=== PATIENT | male | born 1945 | race African-American/Black ===

== ENCOUNTER 2020-09-26 19:20 | Inpatient (IN) | payer OTHER ==
[2020-09-26] MEDS ORDERED: methylPREDNISolone NA SUCC 125 MG/2 ML VIAL IVPUSH ONE (19:45)
[2020-09-26] MEDS ORDERED: ALBUTEROL SO4 2.5/IPRATROPIUM 0.5 INH SOL 3 ML VIAL.NEB. NEB ONE ×2 (19:45→19:49)
[2020-09-26] MEDS ORDERED: methylPREDNISolone NA SUCC 125 MG/2 ML VIAL ONE (19:49)
[2020-09-26 20:20] LABS: EOS % 0.3 % (0-4.5); HEMATOCRIT 37.7 % (35.4-49); HEMOGLOBIN 11.9 GM/dl (11.7-16.9); LYMPH % 13.8 % (8-40); MCH 27.2 pg (25.7-33.7); MCHC 31.7 g/dl (32.0-35.9); MEAN CELL VOLUME 85.9 fl (80-96); MEAN PLT VOLUME 8.6 fl (7.5-11.1); MONO % 13.4 % (3.8-10.2); NEUT % 71.5 % (42.8-82.8); PLATELET COUNT 339 K/MM3 (134-434); RBC 4.38 M/mm3 (4.00-5.60); RDW 15.9 % (11.9-15.9); WHITE BLOOD COUNT 4.2 K/mm3 (4.0-10.8)
[2020-09-26 20:34] LABS: ALBUMIN 2.8 g/dl (3.4-5.0); BILIRUBIN,TOTAL 0.7 mg/dl (0.2-1); CALCIUM 8.4 mg/dl (8.5-10); CREATININE 1.3 mg/dl (0.55-1.3)
[2020-09-26] MEDS ORDERED: PIPERACILLIN/TAZOB 3.375 GM 3.375 GM in DEXTROSE 5%-WATER - 50 ML IVPB ONE (20:54)
[2020-09-26] MEDS ORDERED: PIPERACILLIN/TAZOBACTAM 3.375 GM VIAL IVPB ONE (20:58)
[2020-09-26 22:03] LABS: LACTIC ACID 3.5 mmol/L (0.4-2.0)
[2020-09-26] MEDS ORDERED: POTASSIUM CHLORIDE TABS 20 MEQ TABLET.ER (FP) PO ONE ×2 (23:13→23:32)
[2020-09-27 01:42] VITALS: BMI 27.8
[2020-09-27] MEDS: FUROSEMIDE 40 MG/4 ML INJECTABLE VIAL IVPUSH SCH ×2 (06:22→14:04)
[2020-09-27 07:57] LABS: BASO % 0.3 % (0-2.0); EOS % 0.1 % (0-4.5); HEMATOCRIT 36.3 % (35.4-49); HEMOGLOBIN 11.7 GM/dl (11.7-16.9); LYMPH % 11.3 % (8-40); MCH 27.8 pg (25.7-33.7); MCHC 32.3 g/dl (32.0-35.9); MEAN CELL VOLUME 85.9 fl (80-96); MEAN PLT VOLUME 8.4 fl (7.5-11.1); MONO % 5.1 % (3.8-10.2); NEUT % 83.2 % (42.8-82.8); PLATELET COUNT 314 K/MM3 (134-434); RBC 4.22 M/mm3 (4.00-5.60); RDW 15.9 % (11.9-15.9); WHITE BLOOD COUNT 3.2 K/mm3 (4.0-10.8)
[2020-09-27 08:06] LABS: ALBUMIN 2.8 g/dl (3.4-5.0); BILIRUBIN,TOTAL 0.8 mg/dl (0.2-1); CALCIUM 8.6 mg/dl (8.5-10); CREATININE 1.1 mg/dl (0.55-1.3); TOT PROT 7.1 g/dl (6.4-8.2)
[2020-09-27] MEDS ORDERED: cefTRIAXone SODIUM 1 GM VIAL ONE (08:27)
[2020-09-27] MEDS ORDERED: DEXTROSE 5%-WATER - 50 ML IVPB ONE (08:28)
[2020-09-27 08:46] LABS: ERYTHROCYTE SEDIMENTATION RATE 34 mm/hr (0-20)
[2020-09-27] MEDS: CEFTRIAXONE 1 GM in DEXTROSE 5%-WATER - 50 ML IVPB SCH (09:35)
[2020-09-27] MEDS: AZITHROMYCIN IVPB 500 MG/250 ML BAG IVPB SCH (09:35)
[2020-09-27] MEDS ORDERED: AZITHROMYCIN IVPB 500 MG in DEXTROSE 5%-WATER - 250 ML IVPB SCH (10:00)
[2020-09-27] MEDS ORDERED: HEPARIN NA (PORCINE) 5,000 UNITS/ML 1ML VIAL SQ SCH (10:00)
[2020-09-27 11:08] LABS: LACTIC ACID 3.1 mmol/L (0.4-2.0)
[2020-09-27] MEDS: metoPROLOL SUCCINATE 25 MG TAB.SR.24H (FP) PO SCH ×2 (14:51→15:10)
[2020-09-27] MEDS: NICOTINE 21 MG/24 HOURS TOPICAL PATCH TD SCH (17:06)
[2020-09-27 20:25] LABS: URINE BARBITURATES NEGATIVE ng/ml (CUTOFF=200); URINE BENZODIAZEPINES NEGATIVE ng/ml (CUTOFF=200)
[2020-09-27 20:26] LABS: METHADONE, UR NEGATIVE ng/ml (CUTOFF=300); OPIATES, URI NEGATIVE ng/ml (CUTOFF=300); PHENCYCLIDINE,URINE NEGATIVE ng/ml (CUTOFF=25); URINE AMPHETAMINES NEGATIVE ng/ml (CUTOFF=500)
[2020-09-27 20:38] LABS: COCAINE, UR POSITIVE ng/ml (CUTOFF=300)
[2020-09-27] MEDS: APIXABAN 5 MG TABLET PO SCH (21:47)
[2020-09-28] MEDS: FUROSEMIDE 40 MG/4 ML INJECTABLE VIAL IVPUSH SCH ×2 (06:34→13:21)
[2020-09-28 08:17] LABS: EOS % 0.2 % (0-4.5); HEMATOCRIT 35.7 % (35.4-49); HEMOGLOBIN 11.2 GM/dl (11.7-16.9); LYMPH % 11.8 % (8-40); MCH 26.9 pg (25.7-33.7); MCHC 31.5 g/dl (32.0-35.9); MEAN CELL VOLUME 85.4 fl (80-96); MEAN PLT VOLUME 8.1 fl (7.5-11.1); MONO % 8.3 % (3.8-10.2); NEUT % 78.7 % (42.8-82.8); PLATELET COUNT 311 K/MM3 (134-434); RBC 4.18 M/mm3 (4.00-5.60); RDW 15.9 % (11.9-15.9); WHITE BLOOD COUNT 6.9 K/mm3 (4.0-10.8)
[2020-09-28 08:31] LABS: ALBUMIN 2.9 g/dl (3.4-5.0); BILIRUBIN,TOTAL 0.6 mg/dl (0.2-1); CALCIUM 8.6 mg/dl (8.5-10); CREATININE 1.1 mg/dl (0.55-1.3); MAGNESIUM 1.7 mg/dL (1.8-2.4); TOT PROT 7.2 g/dl (6.4-8.2)
[2020-09-28] MEDS ORDERED: DEXTROSE 5%-WATER - 50 ML IVPB ONE (10:05)
[2020-09-28] MEDS ORDERED: cefTRIAXone SODIUM 1 GM VIAL ONE (10:05)
[2020-09-28] MEDS: APIXABAN 5 MG TABLET PO SCH ×2 (10:23→21:15)
[2020-09-28] MEDS: SACUBITRIL/VALSARTAN 24 MG-26 MG TABLET PO SCH ×2 (10:23→21:15)
[2020-09-28] MEDS: CEFTRIAXONE 1 GM in DEXTROSE 5%-WATER - 50 ML IVPB SCH (10:26)
[2020-09-28] MEDS: CARVEDILOL 6.25 MG TABLET (FP) PO SCH ×2 (10:26→21:15)
[2020-09-28] MEDS: NICOTINE 21 MG/24 HOURS TOPICAL PATCH TD SCH (10:27)
[2020-09-28] MEDS: AZITHROMYCIN IVPB 500 MG/250 ML BAG IVPB SCH (11:37)
[2020-09-29] MEDS: FUROSEMIDE 40 MG/4 ML INJECTABLE VIAL IVPUSH SCH ×2 (06:20→14:25)
[2020-09-29 08:56] LABS: EOS % 0.9 % (0-4.5); HEMATOCRIT 39.1 % (35.4-49); HEMOGLOBIN 12.5 GM/dl (11.7-16.9); LYMPH % 16.7 % (8-40); MCH 27.4 pg (25.7-33.7); MEAN CELL VOLUME 85.5 fl (80-96); MEAN PLT VOLUME 8.8 fl (7.5-11.1); MONO % 10.4 % (3.8-10.2); PLATELET COUNT 316 K/MM3 (134-434); RBC 4.57 M/mm3 (4.00-5.60); RDW 15.5 % (11.9-15.9); WHITE BLOOD COUNT 5.3 K/mm3 (4.0-10.8)
[2020-09-29 09:11] LABS: CALCIUM 8.2 mg/dl (8.5-10); CREATININE 1.1 mg/dl (0.55-1.3); MAGNESIUM 1.5 mg/dL (1.8-2.4)
[2020-09-29] MEDS ORDERED: cefTRIAXone SODIUM 1 GM VIAL ONE (09:36)
[2020-09-29] MEDS ORDERED: DEXTROSE 5%-WATER - 50 ML IVPB ONE (09:36)
[2020-09-29] MEDS: NICOTINE 21 MG/24 HOURS TOPICAL PATCH TD SCH (09:58)
[2020-09-29] MEDS: SACUBITRIL/VALSARTAN 24 MG-26 MG TABLET PO SCH ×2 (09:58→21:44)
[2020-09-29] MEDS: CARVEDILOL 6.25 MG TABLET (FP) PO SCH ×2 (09:58→21:44)
[2020-09-29] MEDS: APIXABAN 5 MG TABLET PO SCH ×2 (09:58→21:44)
[2020-09-29] MEDS ORDERED: MAGNESIUM 1GM/D5W 100ML - 100 ML IVPB IVPB ONE (09:58)
[2020-09-29] MEDS: AZITHROMYCIN IVPB 500 MG/250 ML BAG IVPB SCH (09:59)
[2020-09-29] MEDS: CEFTRIAXONE 1 GM in DEXTROSE 5%-WATER - 50 ML IVPB SCH (09:59)
[2020-09-29] MEDS: ALBUTEROL SO4 HFA INHALER IH SCH (21:48)
[2020-09-30] MEDS: ALBUTEROL SO4 HFA INHALER IH SCH ×6 (05:11→21:18)
[2020-09-30] MEDS: FUROSEMIDE 40 MG/4 ML INJECTABLE VIAL IVPUSH SCH ×2 (06:12→15:16)
[2020-09-30 08:19] LABS: HEMATOCRIT 39.6 % (35.4-49); HEMOGLOBIN 12.8 GM/dl (11.7-16.9); MCH 27.2 pg (25.7-33.7); MCHC 32.3 g/dl (32.0-35.9); MEAN CELL VOLUME 84.4 fl (80-96); MEAN PLT VOLUME 8.5 fl (7.5-11.1); PLATELET COUNT 319 K/MM3 (134-434); RBC 4.69 M/mm3 (4.00-5.60); RDW 15.6 % (11.9-15.9); WHITE BLOOD COUNT 4.6 K/mm3 (4.0-10.8)
[2020-09-30 08:26] LABS: ALBUMIN 2.5 g/dl (3.4-5.0); BILIRUBIN,TOTAL 0.7 mg/dl (0.2-1); CALCIUM 8.2 mg/dl (8.5-10); MAGNESIUM 1.5 mg/dL (1.8-2.4); TOT PROT 6.4 g/dl (6.4-8.2)
[2020-09-30 08:48] LABS: ADD RBC MORPHOLOGY YES
[2020-09-30] MEDS ORDERED: MAGNESIUM SULF 50% (8.12 MEQ/2 ML-1 GM VIAL) IVPB ONE (08:48)
[2020-09-30] MEDS ORDERED: MAGNESIUM SULFATE IN WATER 2 GM/50 ML IVPB IVPB ONE (09:00)
[2020-09-30] MEDS ORDERED: cefTRIAXone SODIUM 1 GM VIAL ONE ×2 (09:31→09:33)
[2020-09-30] MEDS ORDERED: DEXTROSE 5%-WATER - 50 ML IVPB ONE ×2 (09:32→09:33)
[2020-09-30] MEDS: NICOTINE 21 MG/24 HOURS TOPICAL PATCH TD SCH (09:41)
[2020-09-30] MEDS: AZITHROMYCIN IVPB 500 MG/250 ML BAG IVPB SCH (09:41)
[2020-09-30] MEDS: SACUBITRIL/VALSARTAN 24 MG-26 MG TABLET PO SCH ×2 (09:42→21:16)
[2020-09-30] MEDS: POTASSIUM CHLORIDE TABS 20 MEQ TABLET.ER (FP) PO SCH ×2 (09:42→15:16)
[2020-09-30] MEDS: CARVEDILOL 6.25 MG TABLET (FP) PO SCH ×2 (09:42→21:16)
[2020-09-30] MEDS: APIXABAN 5 MG TABLET PO SCH ×2 (09:42→21:16)
[2020-09-30] MEDS: CEFTRIAXONE 1 GM in DEXTROSE 5%-WATER - 50 ML IVPB SCH (09:43)
[2020-09-30 10:51] LABS: ANISOCYTOSIS 1+; PLATELET ESTIMATE ADEQUATE
[2020-10-01] MEDS: ALBUTEROL SO4 HFA INHALER IH SCH ×5 (04:00→15:52)
[2020-10-01] MEDS: FUROSEMIDE 40 MG/4 ML INJECTABLE VIAL IVPUSH SCH ×2 (06:21→13:09)
[2020-10-01 08:05] LABS: HEMATOCRIT 38.5 % (35.4-49); HEMOGLOBIN 12.4 GM/dl (11.7-16.9); MCH 27.4 pg (25.7-33.7); MCHC 32.2 g/dl (32.0-35.9); MEAN CELL VOLUME 85.1 fl (80-96); MEAN PLT VOLUME 8.1 fl (7.5-11.1); PLATELET COUNT 321 K/MM3 (134-434); RBC 4.52 M/mm3 (4.00-5.60); RDW 15.5 % (11.9-15.9); WHITE BLOOD COUNT 4.1 K/mm3 (4.0-10.8)
[2020-10-01 08:11] LABS: ALBUMIN 2.5 g/dl (3.4-5.0); BILIRUBIN,TOTAL 0.8 mg/dl (0.2-1); CALCIUM 8.3 mg/dl (8.5-10); MAGNESIUM 1.9 mg/dL (1.8-2.4); TOT PROT 6.3 g/dl (6.4-8.2)
[2020-10-01 08:21] LABS: ADD RBC MORPHOLOGY YES
[2020-10-01 09:13] LABS: PLATELET ESTIMATE ADEQUATE
[2020-10-01] MEDS: APIXABAN 5 MG TABLET PO SCH (09:40)
[2020-10-01] MEDS: SACUBITRIL/VALSARTAN 24 MG-26 MG TABLET PO SCH (09:41)
[2020-10-01] MEDS: CARVEDILOL 6.25 MG TABLET (FP) PO SCH (09:41)
[2020-10-01] MEDS: NICOTINE 21 MG/24 HOURS TOPICAL PATCH TD SCH (09:41)
[2020-10-01] MEDS ORDERED: CEFUROXIME AXETIL 500 MG TABLET PO SCH (10:00)
[2020-10-01 14:34] VITALS: BP 149/87; PULSE 78; TEMP 97.6
== END 2020-10-01 16:56 | disposition home or self-care (01) | DRG 291 ==
LOC: FER 19:20 → FM/S 23:17
PROVIDERS: ADMIT Hospitalist; ATTEND Nurse Practitioner Acute Care
DX: I11.0 Hypertensive heart disease with heart failure (principal); J18.9 Pneumonia, unspecified organism; J98.11 Atelectasis; I47.2 Ventricular tachycardia; L03.119 Cellulitis of unspecified part of limb; E78.5 Hyperlipidemia, unspecified; I48.91 Unspecified atrial fibrillation; I50.23 Acute on chronic systolic (congestive) heart failure; I87.8 Other specified disorders of veins; J45.909 Unspecified asthma, uncomplicated; M19.90 Unspecified osteoarthritis, unspecified site; D72.819 Decreased white blood cell count, unspecified; F14.129 Cocaine abuse with intoxication, unspecified; I25.10 Atherosclerotic heart disease of native coronary artery without angina pectoris; I87.2 Venous insufficiency (chronic) (peripheral); F17.210 Nicotine dependence, cigarettes, uncomplicated; J44.9 Chronic obstructive pulmonary disease, unspecified; I27.20 Pulmonary hypertension, unspecified; I08.1 Rheumatic disorders of both mitral and tricuspid valves
CPT/HCPCS: 36415; 71045-TC-FY; 80048; 80053; 80061; 80307; 81003; 81015; 82550; 82553; 83036; 83605; 83735; 83880; 84443; 84484; 85025; 85651; 86140; 87040; 87086; 87899; 93005; 93306-TC; 93970-TC; 99285-25; C9803; J1644; U0003; U0005

== ENCOUNTER 2021-01-17 12:30 | Emergency (ER) | payer OTHER ==
[2021-01-17 13:00] VITALS: TEMP 97.4; BMI 27.3
[2021-01-17 13:54] LABS: HEMATOCRIT 35.2 % (35.4-49); HEMOGLOBIN 11.3 GM/dl (11.7-16.9); MCH 27.9 pg (25.7-33.7); MCHC 32.1 g/dl (32.0-35.9); MEAN CELL VOLUME 87.1 fl (80-96); MEAN PLT VOLUME 8.5 fl (7.5-11.1); PLATELET COUNT 178 10^3/uL (134-434); RBC 4.05 M/mm3 (4.00-5.60); WHITE BLOOD COUNT 3.2 K/mm3 (4.0-10.8)
[2021-01-17 13:59] LABS: ACTIVATED PTT 32.3 SECONDS (25.2-36.5)
[2021-01-17 14:04] LABS: INR 1.74 (0.82-1.09); PROTHROMBIN TIME (PATIENT) 18.8 SEC (10.2-13.0)
[2021-01-17 14:05] LABS: ALBUMIN 3.7 g/dl (3.4-5.0); ALK PHOS 115 U/L (45-117); ANION GAP 9 MMOL/L (8-16); BILIRUBIN,TOTAL 1.6 mg/dl (0.2-1); CHLORIDE 104 mmol/L (98-107); CO2 24 mmol/L (21-32); CREATININE 0.7 mg/dl (0.55-1.3); GLUCOSE,RANDOM 95 mg/dl (74-106); MAGNESIUM 1.5 mg/dL (1.8-2.4); SGOT/AST 27 U/L (15-37); SGPT/ALT 15 U/L (13-61); SODIUM 137 mmol/L (136-145); TOT PROT 8.6 g/dl (6.4-8.2)
[2021-01-17] MEDS ORDERED: FUROSEMIDE 40 MG/4 ML INJECTABLE VIAL IVPUSH ONE (14:08)
[2021-01-17] MEDS ORDERED: IPRATROPIUM BR 0.02% 0.5 MG/2.5 ML VIAL.NEB. NEB ONE ×2 (14:08→14:40)
[2021-01-17 14:14] LABS: ANISOCYTOSIS FEW
[2021-01-17] MEDS ORDERED: FUROSEMIDE 40 MG/4 ML INJECTABLE VIAL ONE (14:40)
[2021-01-17] MEDS ORDERED: dilTIAZem HCL 50 MG/10 ML - 10 ML VIAL IVPUSH ONE (15:49)
[2021-01-17] MEDS ORDERED: dilTIAZem HCL 125 MG/25 ML - 25 ML VIAL ONE (15:55)
[2021-01-17] MEDS ORDERED: dilTIAZem HCL 30 MG TABLET PO ONE (17:26)
[2021-01-17] MEDS ORDERED: dilTIAZem HCL 30 MG TABLET ONE (17:32)
[2021-01-17 17:34] VITALS: BP 174/125; PULSE 95
[2021-01-17 17:35] LABS: COCAINE, UR NEGATIVE (NEGATIVE); URINE BARBITURATES NEGATIVE (NEGATIVE)
[2021-01-17 17:36] LABS: METHADONE, UR NEGATIVE (NEGATIVE); OPIATES, URI NEGATIVE (NEGATIVE); PHENCYCLIDINE,URINE NEGATIVE (NEGATIVE); URINE BENZODIAZEPINES NEGATIVE (NEGATIVE)
[2021-01-17 17:41] LABS: URINE AMPHETAMINES NEGATIVE (NEGATIVE)
[2021-01-17] MEDS ORDERED: ALBUTEROL SO4 HFA INHALER IH PRN (19:27)
[2021-01-17] MEDS ORDERED: IPRATROPIUM BR 0.02% 0.5 MG/2.5 ML VIAL.NEB. NEB PRN (19:29)
== END 2021-01-17 20:11 | disposition left against medical advice (07) ==
LOC: SUPCPDRO 12:30 → FER 12:30
PROC: 3E033GC Introduction of Other Therapeutic Substance into Peripheral Vein, Percutaneous Approach (ICD-10-PCS; principal; 2021-01-17)
PROC: 3E033GC Introduction of Other Therapeutic Substance into Peripheral Vein, Percutaneous Approach (ICD-10-PCS; 2021-01-17)
PROC: 3E0F7GC Introduction of Other Therapeutic Substance into Respiratory Tract, Via Natural or Artificial Opening (ICD-10-PCS; 2021-01-17)
DX: I50.9 Heart failure, unspecified (principal); I48.91 Unspecified atrial fibrillation; I10 Essential (primary) hypertension
CPT/HCPCS: 36415; 71045-TC-FY; 73523-TC-FY; 80053; 80307; 81003; 81015; 83735; 83880; 84484; 85025; 85610; 85730; 87086; 93005; 94640; 96374; 96375; 99285-25; C9803; U0003; U0005

== ENCOUNTER 2021-03-18 11:32 | Inpatient (IN) | payer OTHER ==
[2021-03-18] MEDS ORDERED: ALBUTEROL SO4 2.5/IPRATROPIUM 0.5 INH SOL 3 ML VIAL.NEB. NEB ONE ×2 (12:23→12:51)
[2021-03-18 13:08] LABS: BASO % 2.6 % (0-2.0); EOS % 0.5 % (0-4.5); HEMATOCRIT 38.6 % (35.4-49); HEMOGLOBIN 12.3 GM/dl (11.7-16.9); LYMPH % 13.6 % (8-40); MCHC 31.9 g/dl (32.0-35.9); MEAN CELL VOLUME 87.8 fl (80-96); MEAN PLT VOLUME 8.7 fl (7.5-11.1); MONO % 10.7 % (3.8-10.2); NEUT % 72.6 % (42.8-82.8); PLATELET COUNT 244 10^3/uL (134-434); RDW 15.6 % (11.9-15.9); WHITE BLOOD COUNT 3.4 K/mm3 (4.0-10.8)
[2021-03-18 14:16] LABS: INR 2.01 (0.82-1.09); PROTHROMBIN TIME (PATIENT) 22.3 SEC (10.2-13.0)
[2021-03-18 14:21] LABS: ALBUMIN 2.8 g/dl (3.4-5.0); BILIRUBIN,TOTAL 1.6 mg/dl (0.2-1); CALCIUM 8.4 mg/dl (8.5-10); TOT PROT 7.7 g/dl (6.4-8.2)
[2021-03-18 15:14] LABS: VENOUS BASE EXCESS 2.6 mmol/L (-2-2); VENOUS O2 SATURATION 49.8 % (70-80); VENOUS PCO2 48.9 mmHg (38-52); VENOUS PH 7.384 (7.310-7.410)
[2021-03-18] MEDS ORDERED: FUROSEMIDE 40 MG/4 ML INJECTABLE VIAL IVPUSH ONE (15:35)
[2021-03-18] MEDS ORDERED: AZITHROMYCIN IVPB 500 MG in DEXTROSE 5%-WATER - 250 ML IVPB ONE (15:41)
[2021-03-18] MEDS ORDERED: CEFTRIAXONE 1 GM in DEXTROSE 5%-WATER - 50 ML IVPB ONE (15:42)
[2021-03-18] MEDS ORDERED: AZITHROMYCIN 500 MG VIAL IVPB ONE (15:44)
[2021-03-18] MEDS ORDERED: FUROSEMIDE 40 MG/4 ML INJECTABLE VIAL ONE (15:44)
[2021-03-18 15:46] LABS: EPITHELIAL CELLS FEW /hpf
[2021-03-18 15:47] LABS: URINE MUCUS FEW
[2021-03-18] MEDS ORDERED: cefTRIAXone SODIUM 1 GM VIAL ONE (16:52)
[2021-03-18] MEDS ORDERED: ACETAMINOPHEN 325 MG TABLET (FP) PO ONE (16:58)
[2021-03-18] MEDS ORDERED: ACETAMINOPHEN 325 MG TABLET (FP) PO PRN (19:49)
[2021-03-18] MEDS ORDERED: POLYETHYLENE GLYCOL (HEALTHYLAX) 3350 17 GM PACKET PO PRN (19:49)
[2021-03-18] MEDS ORDERED: ALBUTEROL SO4 HFA INHALER IH PRN (19:57)
[2021-03-18] MEDS: DOCUSATE SODIUM 100 MG CAPSULE (FP) PO SCH (22:29)
[2021-03-18] MEDS: APIXABAN 5 MG TABLET PO SCH (22:29)
[2021-03-18] MEDS: CARVEDILOL 6.25 MG TABLET (FP) PO SCH (22:29)
[2021-03-18] MEDS: SACUBITRIL/VALSARTAN 24 MG-26 MG TABLET PO SCH (22:29)
[2021-03-18] MEDS: FUROSEMIDE 40 MG TABLET (FP) PO SCH (22:30)
[2021-03-19] MEDS: MELATONIN 1 MG TABLET PO SCH ×2 (02:09→23:32)
[2021-03-19] MEDS: guaiFENesin/D-M SUGAR-FREE/ACLHOL-FREE 118 ML BOTTLE PO PRN ×2 (02:13→09:59)
[2021-03-19 07:29] LABS: HEMATOCRIT 37.5 % (35.4-49); HEMOGLOBIN 11.9 GM/dl (11.7-16.9); MCH 27.9 pg (25.7-33.7); MCHC 31.8 g/dl (32.0-35.9); MEAN CELL VOLUME 87.8 fl (80-96); MEAN PLT VOLUME 8.9 fl (7.5-11.1); PLATELET COUNT 207 10^3/uL (134-434); RBC 4.28 M/mm3 (4.00-5.60); RDW 16.1 % (11.9-15.9); WHITE BLOOD COUNT 3.8 K/mm3 (4.0-10.8)
[2021-03-19] MEDS ORDERED: PT OWN MED DRAWER 7, Y5N ONE ×3 (09:56→23:38)
[2021-03-19] MEDS: APIXABAN 5 MG TABLET PO SCH ×2 (09:58→23:32)
[2021-03-19] MEDS: DOCUSATE SODIUM 100 MG CAPSULE (FP) PO SCH ×2 (09:58→23:31)
[2021-03-19] MEDS: SACUBITRIL/VALSARTAN 24 MG-26 MG TABLET PO SCH ×2 (09:59→23:32)
[2021-03-19] MEDS: FUROSEMIDE 40 MG TABLET (FP) PO SCH (09:59)
[2021-03-19] MEDS: CARVEDILOL 6.25 MG TABLET (FP) PO SCH ×2 (09:59→23:31)
[2021-03-19] MEDS ORDERED: POTASSIUM CHLORIDE TABS 20 MEQ TABLET.ER (FP) PO SCH (10:00)
[2021-03-19] MEDS ORDERED: ENOXAPARIN NA (PORCINE) 40 MG/0.4 ML DISP.SYRIN SQ SCH (10:00)
[2021-03-19] MEDS ORDERED: MAGNESIUM SULF 50% (8.12 MEQ/2 ML-1 GM VIAL) IVPB ONE (10:03)
[2021-03-19] MEDS ORDERED: MAGNESIUM SULFATE IN WATER 2 GM/50 ML IVPB IVPB ONE (10:15)
[2021-03-19] MEDS: FUROSEMIDE 40 MG/4 ML INJECTABLE VIAL IVPUSH SCH (13:58)
[2021-03-19] MEDS ORDERED: ALBUTEROL SO4 2.5/IPRATROPIUM 0.5 INH SOL 3 ML VIAL.NEB. NEB SCH (14:00)
[2021-03-19] MEDS ORDERED: DEXTROSE 5%-WATER - 50 ML IVPB ONE (17:07)
[2021-03-19] MEDS ORDERED: cefTRIAXone SODIUM 1 GM VIAL ONE (17:07)
[2021-03-19] MEDS: CEFTRIAXONE 1 GM in DEXTROSE 5%-WATER - 50 ML IVPB SCH (17:14)
[2021-03-19] MEDS: AZITHROMYCIN IVPB 250 MG in DEXTROSE 5%-WATER - 250 ML IVPB SCH (18:26)
[2021-03-20] MEDS: FUROSEMIDE 40 MG/4 ML INJECTABLE VIAL IVPUSH SCH ×2 (05:40→13:15)
[2021-03-20] MEDS ORDERED: PT OWN MED DRAWER 7, Y5N ONE ×3 (06:45→21:00)
[2021-03-20 07:47] LABS: INR 1.72 (0.83-1.09); PROTHROMBIN TIME (PATIENT) 20.2 SEC (9.7-13.0)
[2021-03-20 08:04] LABS: BASO % 0.3 % (0-2.0); HEMATOCRIT 36.7 % (35.4-49); HEMOGLOBIN 11.8 GM/dL (11.7-16.9); LYMPH % 16.4 % (8-40); MCH 27.8 pg (25.7-33.7); MEAN CELL VOLUME 86.8 fl (80-96); MEAN PLT VOLUME 8.9 fl (7.5-11.1); MONO % 12.4 % (3.8-10.2); NEUT % 69.9 % (42.8-82.8); PLATELET COUNT 234 10^3/uL (134-434); RBC 4.23 M/mm3 (4.00-5.60); RDW 16.6 % (11.9-15.9); WHITE BLOOD COUNT 3.8 K/mm3 (4.0-10.0)
[2021-03-20 08:18] LABS: ALBUMIN 2.3 g/dl (3.4-5.0); BLOOD UREA NITROGEN 16.2 mg/dL (7-18)
[2021-03-20 08:21] LABS: CREATININE 0.9 mg/dL (0.55-1.3)
[2021-03-20 08:22] LABS: BILIRUBIN,TOTAL 0.7 mg/dL (0.2-1)
[2021-03-20 08:23] LABS: TOT PROT 7.4 g/dl (6.4-8.2)
[2021-03-20] MEDS: APIXABAN 5 MG TABLET PO SCH ×2 (09:29→21:17)
[2021-03-20] MEDS: CARVEDILOL 6.25 MG TABLET (FP) PO SCH ×2 (09:30→21:16)
[2021-03-20] MEDS: SACUBITRIL/VALSARTAN 24 MG-26 MG TABLET PO SCH ×2 (09:30→21:17)
[2021-03-20] MEDS: DOCUSATE SODIUM 100 MG CAPSULE (FP) PO SCH ×2 (09:30→21:17)
[2021-03-20] MEDS: AZITHROMYCIN IVPB 250 MG in DEXTROSE 5%-WATER - 250 ML IVPB SCH (09:37)
[2021-03-20] MEDS: methylPREDNISolone NA SUCC 40 MG/1 ML VIAL IVPUSH SCH ×2 (14:51→21:17)
[2021-03-20 15:17] LABS: URINE BARBITURATES NEGATIVE (NEGATIVE); URINE BENZODIAZEPINES NEGATIVE (NEGATIVE)
[2021-03-20 15:18] LABS: COCAINE, UR POSITIVE (NEGATIVE); METHADONE, UR NEGATIVE (NEGATIVE); OPIATES, URI NEGATIVE (NEGATIVE); PHENCYCLIDINE,URINE NEGATIVE (NEGATIVE); URINE AMPHETAMINES NEGATIVE (NEGATIVE)
[2021-03-20] MEDS: ALBUTEROL SO4 2.5/IPRATROPIUM 0.5 INH SOL 3 ML VIAL.NEB. NEB SCH ×2 (15:43→20:15)
[2021-03-20] MEDS ORDERED: ALBUTEROL SO4 2.5/IPRATROPIUM 0.5 INH SOL 3 ML VIAL.NEB. NEB PRN (16:24)
[2021-03-20] MEDS ORDERED: DEXTROSE 5%-WATER - 50 ML IVPB ONE (16:29)
[2021-03-20] MEDS ORDERED: cefTRIAXone SODIUM 1 GM VIAL ONE (16:29)
[2021-03-20] MEDS: CEFTRIAXONE 1 GM in DEXTROSE 5%-WATER - 50 ML IVPB SCH (16:55)
[2021-03-20] MEDS: ATORVASTATIN CA 20 MG TABLET (FP) PO SCH (21:16)
[2021-03-21] MEDS: MELATONIN 1 MG TABLET PO SCH ×2 (00:26→21:34)
[2021-03-21] MEDS: methylPREDNISolone NA SUCC 40 MG/1 ML VIAL IVPUSH SCH ×4 (03:51→21:34)
[2021-03-21] MEDS: FUROSEMIDE 40 MG/4 ML INJECTABLE VIAL IVPUSH SCH ×2 (06:49→13:37)
[2021-03-21] MEDS ORDERED: PT OWN MED DRAWER 7, Y5N ONE (06:55)
[2021-03-21 07:06] LABS: BASO % 0.1 % (0-2.0); HEMOGLOBIN 12.6 GM/dL (11.7-16.9); LYMPH % 8.9 % (8-40); MCH 27.8 pg (25.7-33.7); MCHC 32.2 g/dl (32.0-35.9); MEAN CELL VOLUME 86.2 fl (80-96); MEAN PLT VOLUME 8.6 fl (7.5-11.1); MONO % 2.3 % (3.8-10.2); NEUT % 88.7 % (42.8-82.8); PLATELET COUNT 266 10^3/uL (134-434); RBC 4.53 M/mm3 (4.00-5.60); RDW 16.2 % (11.9-15.9); WHITE BLOOD COUNT 3.8 K/mm3 (4.0-10.0)
[2021-03-21] MEDS: ALBUTEROL SO4 2.5/IPRATROPIUM 0.5 INH SOL 3 ML VIAL.NEB. NEB SCH ×3 (07:35→19:55)
[2021-03-21 07:36] LABS: CALCIUM 8.6 mg/dL (8.5-10.1)
[2021-03-21 07:37] LABS: ALBUMIN 2.4 g/dl (3.4-5.0); BLOOD UREA NITROGEN 20.5 mg/dL (7-18); MAGNESIUM 1.8 mg/dL (1.8-2.4)
[2021-03-21 07:40] LABS: BILIRUBIN,TOTAL 0.6 mg/dL (0.2-1)
[2021-03-21] MEDS: ASPIRIN 81 MG CHEWABLE TABLETS PO SCH (09:55)
[2021-03-21] MEDS: CARVEDILOL 6.25 MG TABLET (FP) PO SCH ×2 (09:55→21:34)
[2021-03-21] MEDS: SACUBITRIL/VALSARTAN 24 MG-26 MG TABLET PO SCH ×2 (09:55→21:34)
[2021-03-21] MEDS: APIXABAN 5 MG TABLET PO SCH ×2 (09:55→21:34)
[2021-03-21] MEDS: DOCUSATE SODIUM 100 MG CAPSULE (FP) PO SCH ×2 (09:55→21:34)
[2021-03-21] MEDS: AZITHROMYCIN IVPB 250 MG in DEXTROSE 5%-WATER - 250 ML IVPB SCH (10:59)
[2021-03-21] MEDS ORDERED: cefTRIAXone SODIUM 1 GM VIAL ONE (17:00)
[2021-03-21] MEDS ORDERED: DEXTROSE 5%-WATER - 50 ML IVPB ONE (17:00)
[2021-03-21] MEDS: CEFTRIAXONE 1 GM in DEXTROSE 5%-WATER - 50 ML IVPB SCH (17:14)
[2021-03-21] MEDS: ATORVASTATIN CA 20 MG TABLET (FP) PO SCH (21:34)
[2021-03-22] MEDS: methylPREDNISolone NA SUCC 40 MG/1 ML VIAL IVPUSH SCH ×4 (03:05→21:09)
[2021-03-22] MEDS: FUROSEMIDE 40 MG/4 ML INJECTABLE VIAL IVPUSH SCH ×2 (05:34→14:31)
[2021-03-22] MEDS: ALBUTEROL SO4 2.5/IPRATROPIUM 0.5 INH SOL 3 ML VIAL.NEB. NEB SCH ×3 (07:53→20:45)
[2021-03-22 08:22] LABS: CHOLESTEROL 133 mg/dL (50-200)
[2021-03-22 08:23] LABS: TRIGLYCERIDES 82 mg/dL (0-150)
[2021-03-22 08:24] LABS: LDL CHOLESTEROL (ONLY SJRH) 77 mg/dL (5-100)
[2021-03-22 08:25] LABS: HDL CHOLESTEROL 43 mg/dL (40-60)
[2021-03-22] MEDS ORDERED: PT OWN MED DRAWER 7, Y5N ONE (09:44)
[2021-03-22] MEDS: SACUBITRIL/VALSARTAN 24 MG-26 MG TABLET PO SCH ×2 (09:48→21:10)
[2021-03-22] MEDS: CARVEDILOL 6.25 MG TABLET (FP) PO SCH ×2 (09:48→21:10)
[2021-03-22] MEDS: APIXABAN 5 MG TABLET PO SCH ×2 (09:48→21:10)
[2021-03-22] MEDS: DOCUSATE SODIUM 100 MG CAPSULE (FP) PO SCH ×2 (09:48→21:10)
[2021-03-22] MEDS: ASPIRIN 81 MG CHEWABLE TABLETS PO SCH (09:48)
[2021-03-22] MEDS: AZITHROMYCIN IVPB 250 MG in DEXTROSE 5%-WATER - 250 ML IVPB SCH (10:22)
[2021-03-22] MEDS ORDERED: cefTRIAXone SODIUM 1 GM VIAL ONE (16:44)
[2021-03-22] MEDS ORDERED: DEXTROSE 5%-WATER - 50 ML IVPB ONE (16:44)
[2021-03-22] MEDS: CEFTRIAXONE 1 GM in DEXTROSE 5%-WATER - 50 ML IVPB SCH (17:38)
[2021-03-22] MEDS: MELATONIN 1 MG TABLET PO SCH (21:09)
[2021-03-22] MEDS: ATORVASTATIN CA 20 MG TABLET (FP) PO SCH (21:10)
[2021-03-23] MEDS: methylPREDNISolone NA SUCC 40 MG/1 ML VIAL IVPUSH SCH ×4 (04:06→21:38)
[2021-03-23] MEDS: FUROSEMIDE 40 MG/4 ML INJECTABLE VIAL IVPUSH SCH ×2 (06:21→14:01)
[2021-03-23] MEDS ORDERED: ACETAMINOPHEN 325 MG TABLET (FP) PO PRN (07:13)
[2021-03-23] MEDS ORDERED: POLYETHYLENE GLYCOL (HEALTHYLAX) 3350 17 GM PACKET PO PRN (07:13)
[2021-03-23] MEDS: ALBUTEROL SO4 2.5/IPRATROPIUM 0.5 INH SOL 3 ML VIAL.NEB. NEB SCH ×3 (07:25→20:11)
[2021-03-23] MEDS ORDERED: PT OWN MED DRAWER 7, Y5N ONE (09:11)
[2021-03-23] MEDS: APIXABAN 5 MG TABLET PO SCH ×2 (09:25→21:39)
[2021-03-23] MEDS: SACUBITRIL/VALSARTAN 24 MG-26 MG TABLET PO SCH ×2 (09:25→21:38)
[2021-03-23] MEDS: guaiFENesin/D-M SUGAR-FREE/ACLHOL-FREE 118 ML BOTTLE PO PRN (09:25)
[2021-03-23] MEDS: CARVEDILOL 6.25 MG TABLET (FP) PO SCH ×2 (09:25→21:39)
[2021-03-23] MEDS: DOCUSATE SODIUM 100 MG CAPSULE (FP) PO SCH ×2 (09:25→21:39)
[2021-03-23] MEDS: ASPIRIN 81 MG CHEWABLE TABLETS PO SCH (09:25)
[2021-03-23] MEDS: AZITHROMYCIN IVPB 250 MG in DEXTROSE 5%-WATER - 250 ML IVPB SCH (09:26)
[2021-03-23] MEDS ORDERED: DEXTROSE 5%-WATER - 50 ML IVPB ONE (16:21)
[2021-03-23] MEDS ORDERED: cefTRIAXone SODIUM 1 GM VIAL ONE (16:21)
[2021-03-23] MEDS: CEFTRIAXONE 1 GM in DEXTROSE 5%-WATER - 50 ML IVPB SCH (17:15)
[2021-03-23] MEDS: ATORVASTATIN CA 20 MG TABLET (FP) PO SCH (21:39)
[2021-03-23] MEDS: MELATONIN 1 MG TABLET PO SCH (21:39)
[2021-03-24] MEDS: methylPREDNISolone NA SUCC 40 MG/1 ML VIAL IVPUSH SCH ×4 (02:33→21:53)
[2021-03-24] MEDS ORDERED: PT OWN MED DRAWER 7, Y5N ONE ×2 (04:09→15:24)
[2021-03-24] MEDS: guaiFENesin/D-M SUGAR-FREE/ACLHOL-FREE 118 ML BOTTLE PO PRN (04:20)
[2021-03-24] MEDS: FUROSEMIDE 40 MG/4 ML INJECTABLE VIAL IVPUSH SCH ×2 (07:05→14:12)
[2021-03-24] MEDS: ALBUTEROL SO4 2.5/IPRATROPIUM 0.5 INH SOL 3 ML VIAL.NEB. NEB SCH ×3 (07:30→20:10)
[2021-03-24 08:12] LABS: HEMATOCRIT 38.4 % (35.4-49); HEMOGLOBIN 12.4 GM/dL (11.7-16.9); MCH 27.5 pg (25.7-33.7); MCHC 32.2 g/dl (32.0-35.9); MEAN CELL VOLUME 85.4 fl (80-96); MEAN PLT VOLUME 8.5 fl (7.5-11.1); PLATELET COUNT 278 10^3/uL (134-434); RDW 16.3 % (11.9-15.9); WHITE BLOOD COUNT 11.1 K/mm3 (4.0-10.0)
[2021-03-24 08:19] LABS: INR 1.84 (0.83-1.09); PROTHROMBIN TIME (PATIENT) 20.7 SEC (9.7-13.0)
[2021-03-24 08:22] LABS: ACTIVATED PTT 31.2 SECONDS (25.2-36.5)
[2021-03-24 08:32] LABS: CALCIUM 8.8 mg/dL (8.5-10.1)
[2021-03-24 08:33] LABS: ALBUMIN 2.5 g/dl (3.4-5.0)
[2021-03-24 08:37] LABS: BILIRUBIN,TOTAL 0.7 mg/dL (0.2-1)
[2021-03-24 08:38] LABS: TOT PROT 7.9 g/dl (6.4-8.2)
[2021-03-24 11:37] LABS: ANISOCYTOSIS 1+; MACROCYTOSIS 1+; PLATELET ESTIMATE NORMAL
[2021-03-24] MEDS ORDERED: HEPARIN NA (PORCINE) 5,000 UNITS/ML 1ML VIAL IVPUSH PRN ×2 (12:55)
[2021-03-24] MEDS: APIXABAN 5 MG TABLET PO SCH (13:11)
[2021-03-24] MEDS ORDERED: HEPARIN - 25,000 UNIT in SODIUM CHLORIDE 495 ML IV SCH (13:30)
[2021-03-24] MEDS: DOCUSATE SODIUM 100 MG CAPSULE (FP) PO SCH ×2 (14:13→21:54)
[2021-03-24] MEDS: AZITHROMYCIN IVPB 250 MG in DEXTROSE 5%-WATER - 250 ML IVPB SCH (14:13)
[2021-03-24] MEDS: CARVEDILOL 6.25 MG TABLET (FP) PO SCH ×2 (14:13→21:54)
[2021-03-24] MEDS: SACUBITRIL/VALSARTAN 24 MG-26 MG TABLET PO SCH ×2 (14:14→21:53)
[2021-03-24] MEDS: ASPIRIN 81 MG CHEWABLE TABLETS PO SCH (14:14)
[2021-03-24] MEDS ORDERED: cefTRIAXone SODIUM 1 GM VIAL ONE (18:00)
[2021-03-24] MEDS ORDERED: DEXTROSE 5%-WATER - 50 ML IVPB ONE (18:01)
[2021-03-24] MEDS: CEFTRIAXONE 1 GM in DEXTROSE 5%-WATER - 50 ML IVPB SCH (18:18)
[2021-03-24] MEDS: ATORVASTATIN CA 20 MG TABLET (FP) PO SCH (21:53)
[2021-03-24] MEDS: MELATONIN 1 MG TABLET PO SCH (21:53)
[2021-03-25 02:43] LABS: INR 1.49 (0.83-1.09); PROTHROMBIN TIME (PATIENT) 16.8 SEC (9.7-13.0)
[2021-03-25 02:46] LABS: ACTIVATED PTT 34.4 SECONDS (25.2-36.5)
[2021-03-25] MEDS: methylPREDNISolone NA SUCC 40 MG/1 ML VIAL IVPUSH SCH ×4 (03:42→22:16)
[2021-03-25] MEDS: FUROSEMIDE 40 MG/4 ML INJECTABLE VIAL IVPUSH SCH ×2 (06:43→14:49)
[2021-03-25 07:42] LABS: HEMATOCRIT 39.3 % (35.4-49); HEMOGLOBIN 12.5 GM/dL (11.7-16.9); MCH 27.4 pg (25.7-33.7); MCHC 31.9 g/dl (32.0-35.9); MEAN CELL VOLUME 85.9 fl (80-96); MEAN PLT VOLUME 8.4 fl (7.5-11.1); PLATELET COUNT 273 10^3/uL (134-434); RBC 4.58 M/mm3 (4.00-5.60); RDW 16.4 % (11.9-15.9); WHITE BLOOD COUNT 10.4 K/mm3 (4.0-10.0)
[2021-03-25 08:05] LABS: ALBUMIN 2.3 g/dl (3.4-5.0); CALCIUM 8.1 mg/dL (8.5-10.1)
[2021-03-25 08:06] LABS: BLOOD UREA NITROGEN 30.4 mg/dL (7-18); MAGNESIUM 1.5 mg/dL (1.8-2.4)
[2021-03-25 08:09] LABS: CREATININE 0.9 mg/dL (0.55-1.3)
[2021-03-25 08:10] LABS: PHOSPHOROUS 3.2 mg/dL (2.5-4.9)
[2021-03-25 08:11] LABS: TOT PROT 7.5 g/dl (6.4-8.2)
[2021-03-25 08:12] LABS: BILIRUBIN,TOTAL 0.8 mg/dL (0.2-1)
[2021-03-25] MEDS: ALBUTEROL SO4 2.5/IPRATROPIUM 0.5 INH SOL 3 ML VIAL.NEB. NEB SCH ×2 (09:15→15:58)
[2021-03-25] MEDS ORDERED: PT OWN MED DRAWER 7, Y5N ONE (09:37)
[2021-03-25] MEDS: DOCUSATE SODIUM 100 MG CAPSULE (FP) PO SCH ×2 (09:56→22:17)
[2021-03-25] MEDS: SACUBITRIL/VALSARTAN 24 MG-26 MG TABLET PO SCH ×2 (09:56→22:17)
[2021-03-25] MEDS: ASPIRIN 81 MG CHEWABLE TABLETS PO SCH (09:58)
[2021-03-25] MEDS: AZITHROMYCIN IVPB 250 MG in DEXTROSE 5%-WATER - 250 ML IVPB SCH (09:58)
[2021-03-25] MEDS: CARVEDILOL 6.25 MG TABLET (FP) PO SCH ×2 (09:59→22:17)
[2021-03-25] MEDS ORDERED: ENOXAPARIN NA (PORCINE) 80 MG/0.8 ML DISP.SYRIN SQ SCH (10:00)
[2021-03-25 10:27] LABS: ANISOCYTOSIS 1+; MACROCYTOSIS 0; PLATELET ESTIMATE NORMAL
[2021-03-25] MEDS: MAGNESIUM OXIDE 400 MG TABLET (FP) PO SCH ×2 (12:08→22:17)
[2021-03-25] MEDS: ENOXAPARIN NA (PORCINE) 80 MG/0.8 ML DISP.SYRIN SQ SCH ×2 (14:30→22:17)
[2021-03-25] MEDS ORDERED: cefTRIAXone SODIUM 1 GM VIAL ONE (17:29)
[2021-03-25] MEDS ORDERED: DEXTROSE 5%-WATER - 50 ML IVPB ONE (17:30)
[2021-03-25] MEDS: CEFTRIAXONE 1 GM in DEXTROSE 5%-WATER - 50 ML IVPB SCH (17:45)
[2021-03-25] MEDS: ATORVASTATIN CA 20 MG TABLET (FP) PO SCH (22:17)
[2021-03-25] MEDS: MELATONIN 1 MG TABLET PO SCH (22:17)
[2021-03-26] MEDS: methylPREDNISolone NA SUCC 40 MG/1 ML VIAL IVPUSH SCH ×4 (02:12→21:15)
[2021-03-26] MEDS ORDERED: PT OWN MED DRAWER 7, Y5N ONE ×2 (03:57→09:56)
[2021-03-26] MEDS: guaiFENesin/D-M SUGAR-FREE/ACLHOL-FREE 118 ML BOTTLE PO PRN (05:47)
[2021-03-26] MEDS: FUROSEMIDE 40 MG/4 ML INJECTABLE VIAL IVPUSH SCH (06:30)
[2021-03-26 07:07] LABS: HEMATOCRIT 41.9 % (35.4-49); HEMOGLOBIN 13.3 GM/dL (11.7-16.9); MCHC 31.8 g/dl (32.0-35.9); MEAN PLT VOLUME 8.2 fl (7.5-11.1); PLATELET COUNT 258 10^3/uL (134-434); RBC 4.93 M/mm3 (4.00-5.60); RDW 16.4 % (11.9-15.9); WHITE BLOOD COUNT 11.2 K/mm3 (4.0-10.0)
[2021-03-26 07:23] LABS: CALCIUM 8.1 mg/dL (8.5-10.1)
[2021-03-26 07:24] LABS: ALBUMIN 2.6 g/dl (3.4-5.0); BLOOD UREA NITROGEN 30.6 mg/dL (7-18); MAGNESIUM 1.9 mg/dL (1.8-2.4)
[2021-03-26 07:28] LABS: BILIRUBIN,TOTAL 0.7 mg/dL (0.2-1); TOT PROT 7.8 g/dl (6.4-8.2)
[2021-03-26 09:43] LABS: ANISOCYTOSIS 0; MACROCYTOSIS 0; PLATELET ESTIMATE NORMAL
[2021-03-26] MEDS: MAGNESIUM OXIDE 400 MG TABLET (FP) PO SCH ×2 (10:17→21:14)
[2021-03-26] MEDS: ENOXAPARIN NA (PORCINE) 80 MG/0.8 ML DISP.SYRIN SQ SCH (10:18)
[2021-03-26] MEDS: POTASSIUM CHLORIDE ORAL LIQUID 20 MEQ/15 ML PO SCH (10:18)
[2021-03-26] MEDS: CARVEDILOL 6.25 MG TABLET (FP) PO SCH ×2 (10:18→21:14)
[2021-03-26] MEDS: SACUBITRIL/VALSARTAN 24 MG-26 MG TABLET PO SCH ×2 (10:18→21:14)
[2021-03-26] MEDS: DOCUSATE SODIUM 100 MG CAPSULE (FP) PO SCH ×2 (10:18→21:28)
[2021-03-26] MEDS: AZITHROMYCIN IVPB 250 MG in DEXTROSE 5%-WATER - 250 ML IVPB SCH (11:04)
[2021-03-26] MEDS: ALBUTEROL SO4 2.5/IPRATROPIUM 0.5 INH SOL 3 ML VIAL.NEB. NEB SCH ×2 (16:39→20:22)
[2021-03-26] MEDS: ATORVASTATIN CA 20 MG TABLET (FP) PO SCH (21:14)
[2021-03-26] MEDS: MELATONIN 1 MG TABLET PO SCH (21:15)
[2021-03-27] MEDS: ALBUTEROL SO4 2.5/IPRATROPIUM 0.5 INH SOL 3 ML VIAL.NEB. NEB SCH ×6 (00:05→20:05)
[2021-03-27] MEDS: methylPREDNISolone NA SUCC 40 MG/1 ML VIAL IVPUSH SCH ×3 (02:29→17:12)
[2021-03-27 06:45] LABS: HEMATOCRIT 40.6 % (35.4-49); HEMOGLOBIN 13.1 GM/dL (11.7-16.9); MCH 27.5 pg (25.7-33.7); MCHC 32.3 g/dl (32.0-35.9); MEAN CELL VOLUME 85.2 fl (80-96); MEAN PLT VOLUME 8.5 fl (7.5-11.1); PLATELET COUNT 265 10^3/uL (134-434); RBC 4.76 M/mm3 (4.00-5.60); RDW 16.3 % (11.9-15.9)
[2021-03-27 06:58] LABS: BLOOD UREA NITROGEN 31.4 mg/dL (7-18); CALCIUM 8.1 mg/dL (8.5-10.1)
[2021-03-27 06:59] LABS: ALBUMIN 2.5 g/dl (3.4-5.0)
[2021-03-27 07:00] LABS: MAGNESIUM 1.8 mg/dL (1.8-2.4)
[2021-03-27 07:02] LABS: CREATININE 0.9 mg/dL (0.55-1.3); PHOSPHOROUS 2.6 mg/dL (2.5-4.9)
[2021-03-27 07:03] LABS: BILIRUBIN,TOTAL 0.7 mg/dL (0.2-1); TOT PROT 7.4 g/dl (6.4-8.2)
[2021-03-27] MEDS: CARVEDILOL 6.25 MG TABLET (FP) PO SCH ×2 (09:05→21:18)
[2021-03-27] MEDS: FUROSEMIDE 40 MG TABLET (FP) PO SCH (09:05)
[2021-03-27] MEDS: SACUBITRIL/VALSARTAN 24 MG-26 MG TABLET PO SCH ×2 (09:05→21:18)
[2021-03-27] MEDS: DOCUSATE SODIUM 100 MG CAPSULE (FP) PO SCH ×2 (09:07→21:18)
[2021-03-27] MEDS: MAGNESIUM OXIDE 400 MG TABLET (FP) PO SCH ×2 (09:07→21:18)
[2021-03-27 09:29] LABS: ANISOCYTOSIS 1+; MACROCYTOSIS 0; PLATELET ESTIMATE NORMAL; TARGET CELLS 1+
[2021-03-27] MEDS: POTASSIUM CHLORIDE ORAL LIQUID 20 MEQ/15 ML PO SCH (11:18)
[2021-03-27] MEDS ORDERED: ENOXAPARIN NA (PORCINE) 60 MG/0.6 ML DISP.SYRIN SQ ONE (12:00)
[2021-03-27] MEDS ORDERED: ENOXAPARIN NA (PORCINE) 80 MG/0.8 ML DISP.SYRIN SQ ONE (13:45)
[2021-03-27] MEDS: ATORVASTATIN CA 20 MG TABLET (FP) PO SCH (21:18)
[2021-03-27] MEDS: MELATONIN 1 MG TABLET PO SCH (21:18)
[2021-03-28] MEDS: ALBUTEROL SO4 2.5/IPRATROPIUM 0.5 INH SOL 3 ML VIAL.NEB. NEB SCH ×6 (00:30→20:10)
[2021-03-28] MEDS: methylPREDNISolone NA SUCC 40 MG/1 ML VIAL IVPUSH SCH ×5 (02:00→22:15)
[2021-03-28 07:40] LABS: HEMATOCRIT 40.8 % (35.4-49); HEMOGLOBIN 13.4 GM/dL (11.7-16.9); MCH 27.9 pg (25.7-33.7); MCHC 32.8 g/dl (32.0-35.9); MEAN PLT VOLUME 8.6 fl (7.5-11.1); PLATELET COUNT 241 10^3/uL (134-434); RDW 15.9 % (11.9-15.9); WHITE BLOOD COUNT 15.2 K/mm3 (4.0-10.0)
[2021-03-28 07:57] LABS: CALCIUM 8.2 mg/dL (8.5-10.1)
[2021-03-28 07:58] LABS: ALBUMIN 2.5 g/dl (3.4-5.0); BLOOD UREA NITROGEN 37.7 mg/dL (7-18); MAGNESIUM 1.9 mg/dL (1.8-2.4)
[2021-03-28 08:01] LABS: PHOSPHOROUS 2.7 mg/dL (2.5-4.9)
[2021-03-28 08:03] LABS: BILIRUBIN,TOTAL 0.7 mg/dL (0.2-1); TOT PROT 7.3 g/dl (6.4-8.2)
[2021-03-28] MEDS: MAGNESIUM OXIDE 400 MG TABLET (FP) PO SCH ×2 (09:35→22:14)
[2021-03-28] MEDS: SACUBITRIL/VALSARTAN 24 MG-26 MG TABLET PO SCH ×2 (09:35→22:14)
[2021-03-28] MEDS: CARVEDILOL 6.25 MG TABLET (FP) PO SCH ×2 (09:35→22:14)
[2021-03-28] MEDS: POTASSIUM CHLORIDE TABS 20 MEQ TABLET.ER (FP) PO SCH (09:35)
[2021-03-28] MEDS: DOCUSATE SODIUM 100 MG CAPSULE (FP) PO SCH ×2 (09:35→22:15)
[2021-03-28] MEDS: FUROSEMIDE 40 MG TABLET (FP) PO SCH (09:35)
[2021-03-28 10:35] LABS: ANISOCYTOSIS 1+; MACROCYTOSIS 0; PLATELET ESTIMATE NORMAL; TARGET CELLS 1+; TEAR DROP CELLS 1+
[2021-03-28] MEDS: ENOXAPARIN NA (PORCINE) 80 MG/0.8 ML DISP.SYRIN SQ SCH ×2 (11:42→22:15)
[2021-03-28] MEDS: MELATONIN 1 MG TABLET PO SCH (22:14)
[2021-03-28] MEDS: ATORVASTATIN CA 20 MG TABLET (FP) PO SCH (22:14)
[2021-03-29] MEDS: ALBUTEROL SO4 2.5/IPRATROPIUM 0.5 INH SOL 3 ML VIAL.NEB. NEB SCH ×6 (04:00→20:07)
[2021-03-29 07:39] LABS: ALBUMIN 2.4 g/dl (3.4-5.0); BLOOD UREA NITROGEN 35.4 mg/dL (7-18); CALCIUM 8.1 mg/dL (8.5-10.1); HEMATOCRIT 39.8 % (35.4-49); HEMOGLOBIN 12.7 GM/dL (11.7-16.9); MAGNESIUM 1.9 mg/dL (1.8-2.4); MCH 27.2 pg (25.7-33.7); MCHC 31.8 g/dl (32.0-35.9); MEAN CELL VOLUME 85.5 fl (80-96); MEAN PLT VOLUME 8.6 fl (7.5-11.1); PLATELET COUNT 222 10^3/uL (134-434); RBC 4.66 M/mm3 (4.00-5.60); RDW 16.2 % (11.9-15.9); WHITE BLOOD COUNT 13.9 K/mm3 (4.0-10.0)
[2021-03-29 07:42] LABS: PHOSPHOROUS 2.7 mg/dL (2.5-4.9)
[2021-03-29 07:44] LABS: BILIRUBIN,TOTAL 0.7 mg/dL (0.2-1); TOT PROT 6.9 g/dl (6.4-8.2)
[2021-03-29 09:55] LABS: ANISOCYTOSIS 0; HELMET CELLS 0; HOWELL-JOLLY BODIES 0; MACROCYTOSIS 0; OVALOCYTE 0; PLATELET ESTIMATE NORMAL; ROULEAU 0; SICKELED CELLS 0; TARGET CELLS 0; TEAR DROP CELLS 0; TOXIC GRANULATION 0
[2021-03-29] MEDS: methylPREDNISolone NA SUCC 40 MG/1 ML VIAL IVPUSH SCH ×2 (10:00→22:01)
[2021-03-29] MEDS: DOCUSATE SODIUM 100 MG CAPSULE (FP) PO SCH ×2 (10:00→22:00)
[2021-03-29] MEDS: CARVEDILOL 6.25 MG TABLET (FP) PO SCH ×2 (10:01→22:01)
[2021-03-29] MEDS: SACUBITRIL/VALSARTAN 24 MG-26 MG TABLET PO SCH ×2 (10:01→22:01)
[2021-03-29] MEDS: ENOXAPARIN NA (PORCINE) 80 MG/0.8 ML DISP.SYRIN SQ SCH ×3 (10:01→22:02)
[2021-03-29] MEDS: FUROSEMIDE 40 MG TABLET (FP) PO SCH (10:01)
[2021-03-29] MEDS: POTASSIUM CHLORIDE TABS 20 MEQ TABLET.ER (FP) PO SCH (10:01)
[2021-03-29] MEDS: ATORVASTATIN CA 20 MG TABLET (FP) PO SCH (22:00)
[2021-03-29] MEDS: MELATONIN 1 MG TABLET PO SCH (22:00)
[2021-03-30] MEDS: ALBUTEROL SO4 2.5/IPRATROPIUM 0.5 INH SOL 3 ML VIAL.NEB. NEB SCH ×6 (04:00→20:09)
[2021-03-30] MEDS: ENOXAPARIN NA (PORCINE) 80 MG/0.8 ML DISP.SYRIN SQ SCH (09:55)
[2021-03-30] MEDS: DOCUSATE SODIUM 100 MG CAPSULE (FP) PO SCH ×2 (09:56→22:00)
[2021-03-30] MEDS: POTASSIUM CHLORIDE TABS 20 MEQ TABLET.ER (FP) PO SCH (09:56)
[2021-03-30] MEDS: methylPREDNISolone NA SUCC 40 MG/1 ML VIAL IVPUSH SCH ×2 (09:56→21:35)
[2021-03-30] MEDS: CARVEDILOL 6.25 MG TABLET (FP) PO SCH ×2 (09:56→21:34)
[2021-03-30] MEDS: FUROSEMIDE 40 MG TABLET (FP) PO SCH (09:56)
[2021-03-30] MEDS: SACUBITRIL/VALSARTAN 24 MG-26 MG TABLET PO SCH ×2 (09:56→21:34)
[2021-03-30 10:25] LABS: HEMATOCRIT 39.8 % (35.4-49); HEMOGLOBIN 12.8 GM/dL (11.7-16.9); LYMPH % 3.4 % (8-40); MCH 27.4 pg (25.7-33.7); MEAN CELL VOLUME 85.7 fl (80-96); MEAN PLT VOLUME 8.8 fl (7.5-11.1); MONO % 8.8 % (3.8-10.2); NEUT % 87.8 % (42.8-82.8); PLATELET COUNT 208 10^3/uL (134-434); RBC 4.65 M/mm3 (4.00-5.60); RDW 16.3 % (11.9-15.9); WHITE BLOOD COUNT 16.2 K/mm3 (4.0-10.0)
[2021-03-30 10:45] LABS: ALBUMIN 2.5 g/dl (3.4-5.0); BLOOD UREA NITROGEN 30.9 mg/dL (7-18); CALCIUM 8.4 mg/dL (8.5-10.1); MAGNESIUM 2.2 mg/dL (1.8-2.4)
[2021-03-30 10:50] LABS: BILIRUBIN,TOTAL 0.9 mg/dL (0.2-1); TOT PROT 6.9 g/dl (6.4-8.2)
[2021-03-30] MEDS: MELATONIN 1 MG TABLET PO SCH (21:34)
[2021-03-30] MEDS: ATORVASTATIN CA 20 MG TABLET (FP) PO SCH (21:34)
[2021-03-31] MEDS: ALBUTEROL SO4 2.5/IPRATROPIUM 0.5 INH SOL 3 ML VIAL.NEB. NEB SCH ×4 (00:24→11:40)
[2021-03-31 07:53] LABS: HEMATOCRIT 39.8 % (35.4-49); HEMOGLOBIN 12.8 GM/dL (11.7-16.9); MCH 27.4 pg (25.7-33.7); MCHC 32.1 g/dl (32.0-35.9); MEAN CELL VOLUME 85.3 fl (80-96); MEAN PLT VOLUME 8.9 fl (7.5-11.1); PLATELET COUNT 188 10^3/uL (134-434); RBC 4.66 M/mm3 (4.00-5.60); RDW 16.7 % (11.9-15.9); WHITE BLOOD COUNT 15.1 K/mm3 (4.0-10.0)
[2021-03-31 08:12] LABS: ALBUMIN 2.5 g/dl (3.4-5.0); BLOOD UREA NITROGEN 30.7 mg/dL (7-18)
[2021-03-31 08:13] LABS: CALCIUM 8.8 mg/dL (8.5-10.1)
[2021-03-31 08:17] LABS: BILIRUBIN,TOTAL 0.8 mg/dL (0.2-1)
[2021-03-31 08:45] LABS: MAGNESIUM 2.1 mg/dL (1.8-2.4)
[2021-03-31 09:22] LABS: ANISOCYTOSIS 0; MACROCYTOSIS 0; PLATELET ESTIMATE NORMAL
[2021-03-31] MEDS: methylPREDNISolone NA SUCC 40 MG/1 ML VIAL IVPUSH SCH ×4 (10:42→21:56)
[2021-03-31] MEDS: DOCUSATE SODIUM 100 MG CAPSULE (FP) PO SCH ×2 (10:43→21:55)
[2021-03-31] MEDS: CARVEDILOL 6.25 MG TABLET (FP) PO SCH ×2 (10:43→21:56)
[2021-03-31] MEDS: FUROSEMIDE 40 MG TABLET (FP) PO SCH (10:43)
[2021-03-31] MEDS: POTASSIUM CHLORIDE TABS 20 MEQ TABLET.ER (FP) PO SCH ×2 (10:43→10:44)
[2021-03-31] MEDS: SACUBITRIL/VALSARTAN 24 MG-26 MG TABLET PO SCH ×2 (10:43→21:56)
[2021-03-31] MEDS ORDERED: guaiFENesin/D-M SUGAR-FREE/ACLHOL-FREE 118 ML BOTTLE PO PRN (17:35)
[2021-03-31] MEDS ORDERED: ACETAMINOPHEN 325 MG TABLET (FP) PO PRN (17:35)
[2021-03-31] MEDS ORDERED: POLYETHYLENE GLYCOL (HEALTHYLAX) 3350 17 GM PACKET PO PRN (17:35)
[2021-03-31] MEDS ORDERED: PT OWN MED DRAWER 7, Y5N ONE (20:48)
[2021-03-31] MEDS ORDERED: MELATONIN 1 MG TABLET PO SCH (22:00)
[2021-03-31] MEDS ORDERED: ATORVASTATIN CA 20 MG TABLET (FP) PO SCH (22:00)
[2021-04-01 08:36] LABS: HEMATOCRIT 42.1 % (35.4-49); HEMOGLOBIN 13.5 GM/dL (11.7-16.9); MCH 27.2 pg (25.7-33.7); MCHC 32.2 g/dl (32.0-35.9); MEAN CELL VOLUME 84.7 fl (80-96); MEAN PLT VOLUME 8.5 fl (7.5-11.1); PLATELET COUNT 145 10^3/uL (134-434); RBC 4.97 M/mm3 (4.00-5.60); RDW 16.6 % (11.9-15.9); WHITE BLOOD COUNT 22.5 K/mm3 (4.0-10.0)
[2021-04-01 08:55] LABS: ALBUMIN 2.4 g/dl (3.4-5.0); BLOOD UREA NITROGEN 29.7 mg/dL (7-18); CALCIUM 8.2 mg/dL (8.5-10.1)
[2021-04-01 08:58] LABS: CREATININE 0.9 mg/dL (0.55-1.3)
[2021-04-01 09:00] LABS: BILIRUBIN,TOTAL 1.4 mg/dL (0.2-1); TOT PROT 6.6 g/dl (6.4-8.2)
[2021-04-01] MEDS: DOCUSATE SODIUM 100 MG CAPSULE (FP) PO SCH ×2 (09:04→22:56)
[2021-04-01] MEDS: methylPREDNISolone NA SUCC 40 MG/1 ML VIAL IVPUSH SCH ×2 (09:10→22:56)
[2021-04-01] MEDS: CARVEDILOL 6.25 MG TABLET (FP) PO SCH ×2 (09:11→22:56)
[2021-04-01] MEDS: SACUBITRIL/VALSARTAN 24 MG-26 MG TABLET PO SCH ×2 (09:11→22:56)
[2021-04-01 09:54] LABS: ANISOCYTOSIS 0; HELMET CELLS 0; HOWELL-JOLLY BODIES 0; MACROCYTOSIS 0; OVALOCYTE 0; PLATELET ESTIMATE DECREASED; ROULEAU 0; SICKELED CELLS 0; TARGET CELLS 0; TEAR DROP CELLS 0; TOXIC GRANULATION 0
[2021-04-01] MEDS ORDERED: FUROSEMIDE 40 MG TABLET (FP) PO SCH (10:00)
[2021-04-01] MEDS ORDERED: POTASSIUM CHLORIDE TABS 20 MEQ TABLET.ER (FP) PO SCH (10:00)
[2021-04-01] MEDS ORDERED: HEPARIN NA (PORCINE) 5,000 UNITS/ML 1ML VIAL ONE (15:27)
[2021-04-01] MEDS ORDERED: LIDOCAINE HCL 1%, 10 MG/ML (20ML VIAL) ONE (15:27)
[2021-04-01] MEDS ORDERED: NITROGLYCERIN 50 MG/10 ML VIAL IVPB ONE (15:27)
[2021-04-01] MEDS ORDERED: ONDANSETRON 4 MG/2 ML VIAL IVPUSH PRN ×2 (15:30→19:50)
[2021-04-01] MEDS ORDERED: ceFAZolin SODIUM 1 GM VIAL ONE (17:12)
[2021-04-01] MEDS ORDERED: MIDAZOLAM HCL 2 MG/2 ML SINGLE DOSE VIAL ONE (17:12)
[2021-04-01] MEDS ORDERED: ONDANSETRON 4 MG/2 ML VIAL ONE (17:13)
[2021-04-01] MEDS ORDERED: ceFAZolin SODIUM 1 GM VIAL IVPB ONE (17:37)
[2021-04-01] MEDS ORDERED: METOPROLOL TARTRATE 5 MG/5 ML VIAL ONE (17:40)
[2021-04-01] MEDS ORDERED: PROPOFOL 20 ML ONE (17:45)
[2021-04-01] MEDS ORDERED: LIDOCAINE HCL 1%, 10 MG/ML (20ML VIAL) NR ONE (17:49)
[2021-04-01] MEDS ORDERED: ALTEPLASE (CATHFLO) 2 MG/2 ML VIAL CVP ONE (18:46)
[2021-04-01] MEDS ORDERED: APIXABAN 5 MG TABLET PO SCH (19:15)
[2021-04-01] MEDS ORDERED: APIXABAN 5 MG TABLET ONE (19:28)
[2021-04-01] MEDS ORDERED: guaiFENesin/D-M SUGAR-FREE/ACLHOL-FREE 118 ML BOTTLE PO PRN (19:50)
[2021-04-01] MEDS ORDERED: POLYETHYLENE GLYCOL (HEALTHYLAX) 3350 17 GM PACKET PO PRN (19:50)
[2021-04-01] MEDS ORDERED: ACETAMINOPHEN 325 MG TABLET (FP) PO PRN (19:50)
[2021-04-01] MEDS ORDERED: APIXABAN 5 MG TABLET PO ONE (20:30)
[2021-04-01] MEDS ORDERED: MELATONIN 1 MG TABLET PO SCH (22:00)
[2021-04-01] MEDS ORDERED: ATORVASTATIN CA 20 MG TABLET (FP) PO SCH (22:00)
[2021-04-01] MEDS ORDERED: PT OWN MED DRAWER 7, Y5N ONE (22:54)
[2021-04-01 23:56] VITALS: BMI 25.1
[2021-04-02 07:54] LABS: HEMATOCRIT 35.6 % (35.4-49); HEMOGLOBIN 11.8 GM/dL (11.7-16.9); MCH 27.6 pg (25.7-33.7); MCHC 33.2 g/dl (32.0-35.9); MEAN CELL VOLUME 83.2 fl (80-96); MEAN PLT VOLUME 8.9 fl (7.5-11.1); PLATELET COUNT 130 10^3/uL (134-434); RBC 4.28 M/mm3 (4.00-5.60); RDW 16.2 % (11.9-15.9); WHITE BLOOD COUNT 13.1 K/mm3 (4.0-10.0)
[2021-04-02 08:24] LABS: ALBUMIN 2.3 g/dl (3.4-5.0); BLOOD UREA NITROGEN 36.9 mg/dL (7-18)
[2021-04-02 08:29] LABS: BILIRUBIN,TOTAL 1.2 mg/dL (0.2-1); TOT PROT 6.1 g/dl (6.4-8.2)
[2021-04-02] MEDS: DOCUSATE SODIUM 100 MG CAPSULE (FP) PO SCH (09:00)
[2021-04-02] MEDS: CARVEDILOL 6.25 MG TABLET (FP) PO SCH (09:00)
[2021-04-02] MEDS: methylPREDNISolone NA SUCC 40 MG/1 ML VIAL IVPUSH SCH (09:01)
[2021-04-02] MEDS: SACUBITRIL/VALSARTAN 24 MG-26 MG TABLET PO SCH (09:21)
[2021-04-02 09:52] LABS: ANISOCYTOSIS 1+; MACROCYTOSIS 0; OVALOCYTE 1+; PLATELET ESTIMATE DECREASED; TARGET CELLS 2+; TEAR DROP CELLS 1+
[2021-04-02] MEDS ORDERED: FUROSEMIDE 40 MG TABLET (FP) PO SCH (10:00)
[2021-04-02] MEDS ORDERED: POTASSIUM CHLORIDE TABS 20 MEQ TABLET.ER (FP) PO SCH (10:00)
[2021-04-02 13:20] VITALS: BP 109/57; PULSE 84; TEMP 97.7
== END 2021-04-02 19:28 | disposition home or self-care (01) | DRG 270 ==
LOC: FER 11:32 → FM/S 16:44 → UNDOADMIN 16:44 → J4S 03-19 21:19 → J6S 03-31 17:20
PROVIDERS: ADMIT Internal Medicine
PROC: 3E05317 Introduction of Other Thrombolytic into Peripheral Artery, Percutaneous Approach (ICD-10-PCS; 2021-04-01)
PROC: B41DZZZ Fluoroscopy of Aorta and Bilateral Lower Extremity Arteries (ICD-10-PCS; 2021-04-01)
PROC: B40FYZZ Plain Radiography of Right Lower Extremity Arteries using Other Contrast (ICD-10-PCS; 2021-04-01)
PROC: 047M3ZZ Dilation of Right Popliteal Artery, Percutaneous Approach (ICD-10-PCS; principal; 2021-04-01 16:00)
PROC: 04CM3ZZ Extirpation of Matter from Right Popliteal Artery, Percutaneous Approach (ICD-10-PCS; 2021-04-01 16:00)
DX: I11.0 Hypertensive heart disease with heart failure (principal); I50.23 Acute on chronic systolic (congestive) heart failure; J18.9 Pneumonia, unspecified organism; J44.1 Chronic obstructive pulmonary disease with (acute) exacerbation; J44.9 Chronic obstructive pulmonary disease, unspecified; I48.91 Unspecified atrial fibrillation; F14.10 Cocaine abuse, uncomplicated; I73.9 Peripheral vascular disease, unspecified; R91.8 Other nonspecific abnormal finding of lung field
CPT/HCPCS: 36415; 70450-TC; 71045-TC-FY; 71250-TC; 75635-TC; 76000-TC-FY; 80053; 80061; 80307; 81003; 81015; 82550; 82553; 82803; 83735; 83880; 84100; 84484; 85025; 85027; 85610; 85730; 86850; 86900; 86901; 87086; 93005; 93970-TC; 94640; 94760; 99285-25; C9803; J1644; J2997; U0003; U0005

== ENCOUNTER 2021-04-10 12:24 | Observation (INO) | payer OTHER ==
[2021-04-10 19:03] LABS: BASO % 0.4 % (0-2.0); EOS % 0.4 % (0-4.5); HEMATOCRIT 35.1 % (35.4-49); HEMOGLOBIN 11.1 GM/dL (11.7-16.9); LYMPH % 9.8 % (8-40); MCH 26.9 pg (25.7-33.7); MCHC 31.7 g/dl (32.0-35.9); MEAN CELL VOLUME 84.9 fl (80-96); MEAN PLT VOLUME 8.7 fl (7.5-11.1); MONO % 10.5 % (3.8-10.2); NEUT % 78.9 % (42.8-82.8); PLATELET COUNT 158 10^3/uL (134-434); RBC 4.13 M/mm3 (4.00-5.60); RDW 17.2 % (11.9-15.9); WHITE BLOOD COUNT 6.7 K/mm3 (4.0-10.0)
[2021-04-10 19:11] LABS: INR 1.65 (0.83-1.09); PROTHROMBIN TIME (PATIENT) 18.6 SEC (9.7-13.0)
[2021-04-10 19:14] LABS: ACTIVATED PTT 32.7 SECONDS (25.2-36.5)
[2021-04-10 19:22] LABS: CHLORIDE 108 mmol/L (98-107); SODIUM 143 mmol/L (136-145)
[2021-04-10 19:25] LABS: ALBUMIN 2.7 g/dl (3.4-5.0); ANION GAP 3 MMOL/L (8-16); BLOOD UREA NITROGEN 12.5 mg/dL (7-18); CALCIUM 8.5 mg/dL (8.5-10.1); CO2 32 mmol/L (21-32); MAGNESIUM 2.2 mg/dL (1.8-2.4)
[2021-04-10 19:26] LABS: GLUCOSE,RANDOM 77 mg/dL (74-106)
[2021-04-10 19:28] LABS: SGPT/ALT 23 U/L (13-61)
[2021-04-10 19:29] LABS: CREATININE 0.8 mg/dL (0.55-1.3); SGOT/AST 26 U/L (15-37)
[2021-04-10 19:30] LABS: BILIRUBIN,TOTAL 1.1 mg/dL (0.2-1); TOT PROT 7.2 g/dl (6.4-8.2)
[2021-04-10 19:34] LABS: N-TERMINAL BNP 5973.9 pg/ml (5-450)
[2021-04-10 19:37] LABS: ALK PHOS 139 U/L (45-117)
[2021-04-10] MEDS ORDERED: ALBUTEROL SO4 2.5/IPRATROPIUM 0.5 INH SOL 3 ML VIAL.NEB. NEB ONE ×2 (21:24→22:37)
[2021-04-10] MEDS ORDERED: FUROSEMIDE 40 MG/4 ML INJECTABLE VIAL IVPUSH ONE (21:59)
[2021-04-10] MEDS ORDERED: CARVEDILOL 6.25 MG TABLET (FP) PO SCH (22:00)
[2021-04-10 22:12] LABS: EPI CELLS 5 /uL (0-25.1); HYALINE CASTS 2 /uL (0-3.1); PH,URINE 5.5 (5.0-8.0); URINE APPEARANCE CLEAR; URINE BACTERIA 0 /uL (0-1359); URINE BILIRUBIN 1+ (NEGATIVE); URINE COLOR DK YELLOW; URINE GLUCOSE (UA) NEGATIVE (NEGATIVE); URINE KETONE TRACE (NEGATIVE); URINE LEUK ESTERASE NEGATIVE (NEGATIVE); URINE NITRITE NEGATIVE (NEGATIVE); URINE PROTEIN 3+ (NEGATIVE); URINE UROBILINOGEN >=8.0 E.U./dl mg/dL (0.2-1.0); URINE WBC 10 /uL (0-25.8)
[2021-04-10 22:33] LABS: IRON SERUM 26 ug/dL (50-175); TOTAL IRON BINDING CAPACITY 254 ug/dL (250-450)
[2021-04-10] MEDS ORDERED: ATORVASTATIN CA 20 MG TABLET (FP) ONE (22:37)
[2021-04-10] MEDS ORDERED: CARVEDILOL 3.125 MG TABLET (FP) ONE (22:37)
[2021-04-10] MEDS ORDERED: APIXABAN 5 MG TABLET ONE (22:37)
[2021-04-10] MEDS ORDERED: FUROSEMIDE 40 MG/4 ML INJECTABLE VIAL ONE (22:38)
[2021-04-10] MEDS ORDERED: CARVEDILOL 3.125 MG TABLET (FP) PO SCH (22:39)
[2021-04-10] MEDS: BUDESONIDE/FORMETEROL FUMARATE 160/4.5 mcg INHALER IH SCH (22:44)
[2021-04-10 22:46] LABS: URINE RBC 88.4 /uL (0-23.9)
[2021-04-10 22:56] LABS: URINE BARBITURATES NEGATIVE (NEGATIVE); URINE BENZODIAZEPINES NEGATIVE (NEGATIVE)
[2021-04-10 22:57] LABS: METHADONE, UR NEGATIVE (NEGATIVE); OPIATES, URI NEGATIVE (NEGATIVE); PHENCYCLIDINE,URINE NEGATIVE (NEGATIVE)
[2021-04-10] MEDS: APIXABAN 5 MG TABLET PO SCH (22:59)
[2021-04-10] MEDS: ATORVASTATIN CA 20 MG TABLET (FP) PO SCH (22:59)
[2021-04-10 23:22] LABS: COCAINE, UR POSITIVE (NEGATIVE); URINE AMPHETAMINES NEGATIVE (NEGATIVE)
[2021-04-10] MEDS: CARVEDILOL 3.125 MG TABLET (FP) PO SCH (23:22)
[2021-04-11 09:05] LABS: EOS % 0.5 % (0-4.5); HEMATOCRIT 29.8 % (35.4-49); HEMOGLOBIN 9.6 GM/dL (11.7-16.9); LYMPH % 7.4 % (8-40); MCH 27.3 pg (25.7-33.7); MCHC 32.3 g/dl (32.0-35.9); MEAN CELL VOLUME 84.5 fl (80-96); MEAN PLT VOLUME 9.3 fl (7.5-11.1); MONO % 7.6 % (3.8-10.2); NEUT % 83.5 % (42.8-82.8); PLATELET COUNT 181 10^3/uL (134-434); RBC 3.52 M/mm3 (4.00-5.60); RDW 16.8 % (11.9-15.9); WHITE BLOOD COUNT 7.4 K/mm3 (4.0-10.0)
[2021-04-11 09:34] LABS: ALBUMIN 2.4 g/dl (3.4-5.0); BLOOD UREA NITROGEN 14.1 mg/dL (7-18); CALCIUM 8.1 mg/dL (8.5-10.1); PHOSPHOROUS 3.2 mg/dL (2.5-4.9)
[2021-04-11 09:35] LABS: BILIRUBIN,TOTAL 0.8 mg/dL (0.2-1); MAGNESIUM 1.9 mg/dL (1.8-2.4)
[2021-04-11 09:36] LABS: TOT PROT 6.3 g/dl (6.4-8.2)
[2021-04-11 09:37] LABS: CREATININE 0.8 mg/dL (0.55-1.3)
[2021-04-11] MEDS: BUDESONIDE/FORMETEROL FUMARATE 160/4.5 mcg INHALER IH SCH ×2 (09:55→21:43)
[2021-04-11] MEDS: CARVEDILOL 3.125 MG TABLET (FP) PO SCH ×2 (09:56→21:41)
[2021-04-11] MEDS: APIXABAN 5 MG TABLET PO SCH ×2 (09:56→21:41)
[2021-04-11] MEDS: ZINC OXIDE/PANTHENOL/VITAMIN E 56 GM TUBE TP SCH (09:56)
[2021-04-11] MEDS ORDERED: ACETAMINOPHEN 325 MG TABLET (FP) PO PRN (12:13)
[2021-04-11] MEDS: ATORVASTATIN CA 20 MG TABLET (FP) PO SCH (21:41)
[2021-04-12 08:47] LABS: EOS % 1.2 % (0-4.5); HEMATOCRIT 30.9 % (35.4-49); HEMOGLOBIN 9.9 GM/dL (11.7-16.9); LYMPH % 12.1 % (8-40); MCH 27.4 pg (25.7-33.7); MCHC 32.1 g/dl (32.0-35.9); MEAN CELL VOLUME 85.3 fl (80-96); MEAN PLT VOLUME 8.9 fl (7.5-11.1); MONO % 8.7 % (3.8-10.2); PLATELET COUNT 245 10^3/uL (134-434); RBC 3.62 M/mm3 (4.00-5.60); RDW 16.6 % (11.9-15.9); WHITE BLOOD COUNT 5.1 K/mm3 (4.0-10.0)
[2021-04-12 09:12] LABS: CALCIUM 8.6 mg/dL (8.5-10.1)
[2021-04-12 09:13] LABS: ALBUMIN 2.6 g/dl (3.4-5.0); BLOOD UREA NITROGEN 15.3 mg/dL (7-18)
[2021-04-12 09:16] LABS: BILIRUBIN,TOTAL 0.6 mg/dL (0.2-1); CREATININE 0.7 mg/dL (0.55-1.3)
[2021-04-12 09:17] LABS: TOT PROT 6.9 g/dl (6.4-8.2)
[2021-04-12] MEDS: CARVEDILOL 3.125 MG TABLET (FP) PO SCH ×2 (09:57→21:22)
[2021-04-12] MEDS: APIXABAN 5 MG TABLET PO SCH ×2 (09:58→21:22)
[2021-04-12] MEDS: BUDESONIDE/FORMETEROL FUMARATE 160/4.5 mcg INHALER IH SCH ×2 (10:06→21:22)
[2021-04-12 19:06] VITALS: BMI 25.2
[2021-04-12] MEDS ORDERED: PT OWN MED DRAWER 7, Y5N ONE (21:14)
[2021-04-12] MEDS: ATORVASTATIN CA 20 MG TABLET (FP) PO SCH (21:22)
[2021-04-12] MEDS: DOCUSATE SODIUM 100 MG CAPSULE (FP) PO SCH (21:22)
[2021-04-12 23:07] VITALS: BP 125/77; PULSE 97; TEMP 98.3
[2021-04-13] MEDS ORDERED: AMINO ACIDS/PROTEIN HYDROLYS 30 ML LIQUID.PKT PO SCH (08:00)
[2021-04-13 08:16] LABS: BASO % 0.3 % (0-2.0); EOS % 1.3 % (0-4.5); HEMATOCRIT 29.9 % (35.4-49); HEMOGLOBIN 9.6 GM/dL (11.7-16.9); MCH 27.4 pg (25.7-33.7); MCHC 32.3 g/dl (32.0-35.9); MEAN PLT VOLUME 8.9 fl (7.5-11.1); MONO % 12.3 % (3.8-10.2); NEUT % 70.1 % (42.8-82.8); PLATELET COUNT 285 10^3/uL (134-434); RBC 3.52 M/mm3 (4.00-5.60); RDW 16.8 % (11.9-15.9); WHITE BLOOD COUNT 4.2 K/mm3 (4.0-10.0)
[2021-04-13 08:41] LABS: BLOOD UREA NITROGEN 17.7 mg/dL (7-18); CALCIUM 7.9 mg/dL (8.5-10.1)
[2021-04-13 08:45] LABS: CREATININE 0.8 mg/dL (0.55-1.3)
[2021-04-13] MEDS: CARVEDILOL 3.125 MG TABLET (FP) PO SCH (09:11)
[2021-04-13] MEDS: DOCUSATE SODIUM 100 MG CAPSULE (FP) PO SCH (09:11)
[2021-04-13] MEDS: BUDESONIDE/FORMETEROL FUMARATE 160/4.5 mcg INHALER IH SCH (09:12)
[2021-04-13] MEDS: ZINC OXIDE/PANTHENOL/VITAMIN E 56 GM TUBE TP SCH (09:12)
[2021-04-13] MEDS: APIXABAN 5 MG TABLET PO SCH (09:12)
[2021-04-13] MEDS ORDERED: ASCORBIC ACID 500 MG TABLET (FP) PO SCH (10:00)
[2021-04-13] MEDS ORDERED: MULTIVITAMINS (DAILY MVI) TABLET (FP) PO SCH (10:00)
== END 2021-04-13 19:24 | disposition home or self-care (01) ==
LOC: JER 12:24 → J6S 19:51 → JER 04-11 04:56 → J6S 04-11 04:56 → JER 04-11 05:15 → J6S 04-11 05:15 → UNDOADMOB 04-11 05:15 → INTOOBSV 04-11 05:15 → J6S 04-11 05:21 → JERBED 04-11 05:21 → J6S 04-11 05:22 → JERBED 04-11 05:22
PROVIDERS: ADMIT Internal Medicine; ATTEND Internal Medicine
PROC: 3E0F7GC Introduction of Other Therapeutic Substance into Respiratory Tract, Via Natural or Artificial Opening (ICD-10-PCS; principal; 2021-04-10)
PROC: 3E033GC Introduction of Other Therapeutic Substance into Peripheral Vein, Percutaneous Approach (ICD-10-PCS; 2021-04-10)
DX: L89.152 Pressure ulcer of sacral region, stage 2 (principal); I13.0 Hypertensive heart and chronic kidney disease with heart failure and stage 1 through stage 4 chronic kidney disease, or unspecified chronic kidney disease; R91.1 Solitary pulmonary nodule; I50.9 Heart failure, unspecified; N18.9 Chronic kidney disease, unspecified; J44.9 Chronic obstructive pulmonary disease, unspecified; Z98.62 Peripheral vascular angioplasty status; I48.91 Unspecified atrial fibrillation; Z79.01 Long term (current) use of anticoagulants; M79.661 Pain in right lower leg; Z29.9 Encounter for prophylactic measures, unspecified; Z86.73 Personal history of transient ischemic attack (TIA), and cerebral infarction without residual deficits; M53.3 Sacrococcygeal disorders, not elsewhere classified; Z91.14 Patient's other noncompliance with medication regimen; Z87.891 Personal history of nicotine dependence; I73.9 Peripheral vascular disease, unspecified; F14.10 Cocaine abuse, uncomplicated
CPT/HCPCS: 36415; 71045-TC-FY; 73706-TC-RT; 80048; 80053; 80307; 81003; 82550; 82728; 83036; 83540; 83550; 83735; 83880; 84100; 84443; 84484; 85025; 85610; 85730; 86850; 86900; 86901; 93005; 93010; 94640; 96374; 97116-GP; 97161-GP; 99285-25; C9803; G0378; U0003; U0005

== ENCOUNTER 2021-05-31 15:07 | Inpatient (IN) | payer OTHER ==
[~2021-05-31 15:07] MED LIST: CEFTRIAXONE 1 GM in DEXTROSE 5%-WATER - 50 ML IVPB ONE
[2021-05-31] MEDS ORDERED: ALBUTEROL SO4 2.5/IPRATROPIUM 0.5 INH SOL 3 ML VIAL.NEB. NEB ONE ×2 (16:21→17:09)
[2021-05-31 16:58] LABS: BASO % 0.5 % (0-2.0); EOS % 0.7 % (0-4.5); HEMATOCRIT 37.3 % (35.4-49); HEMOGLOBIN 11.4 GM/dL (11.7-16.9); LYMPH % 17.1 % (8-40); MCH 25.3 pg (25.7-33.7); MCHC 30.4 g/dl (32.0-35.9); MEAN CELL VOLUME 83.2 fl (80-96); MEAN PLT VOLUME 8.6 fl (7.5-11.1); NEUT % 63.7 % (42.8-82.8); PLATELET COUNT 267 10^3/uL (134-434); RBC 4.49 M/mm3 (4.00-5.60)
[2021-05-31 17:08] LABS: CHLORIDE 107 mmol/L (98-107); SODIUM 141 mmol/L (136-145)
[2021-05-31 17:11] LABS: ALBUMIN 2.1 g/dl (3.4-5.0); ANION GAP 7 MMOL/L (8-16); BLOOD UREA NITROGEN 13.7 mg/dL (7-18); CALCIUM 8.2 mg/dL (8.5-10.1); CO2 27 mmol/L (21-32); GLUCOSE,RANDOM 91 mg/dL (74-106)
[2021-05-31 17:13] LABS: CREATININE 0.9 mg/dL (0.55-1.3)
[2021-05-31 17:14] LABS: SGOT/AST 22 U/L (15-37); SGPT/ALT 12 U/L (13-61)
[2021-05-31 17:15] LABS: BILIRUBIN,TOTAL 1.4 mg/dL (0.2-1); TOT PROT 7.1 g/dl (6.4-8.2)
[2021-05-31 17:17] LABS: ALK PHOS 96 U/L (45-117)
[2021-05-31 17:18] LABS: N-TERMINAL BNP 10970.1 pg/ml (5-450)
[2021-05-31] MEDS ORDERED: FUROSEMIDE 40 MG/4 ML INJECTABLE VIAL IVPUSH ONE (17:42)
[2021-05-31 17:47] LABS: EPI CELLS 7 /uL (0-25.1); HYALINE CASTS 5 /uL (0-3.1); PH,URINE 5.5 (5.0-8.0); URINE APPEARANCE CLEAR; URINE BILIRUBIN 1+ (NEGATIVE); URINE COLOR DK YELLOW; URINE GLUCOSE (UA) NEGATIVE (NEGATIVE); URINE KETONE TRACE (NEGATIVE); URINE LEUK ESTERASE TRACE (NEGATIVE); URINE NITRITE POSITIVE (NEGATIVE); URINE PROTEIN 3+ (NEGATIVE); URINE RBC 23 /uL (0-23.9); URINE UROBILINOGEN 4.0 E.U/dl mg/dL (0.2-1.0); URINE WBC 12 /uL (0-25.8)
[2021-05-31] MEDS ORDERED: CEFTRIAXONE 1,000 MG in DEXTROSE 5%-WATER - 50 ML IVPB ONE (19:08)
[2021-05-31] MEDS ORDERED: cefTRIAXone SODIUM 1 GM VIAL ONE (19:22)
[2021-05-31 22:02] LABS: URINE BACTERIA 3 /uL (0-1359)
[2021-05-31 22:03] LABS: URINE CRYSTALS FEW /hpf
[2021-05-31] MEDS ORDERED: AZITHROMYCIN IVPB 500 MG/250 ML BAG IVPB ONE (22:32)
[2021-05-31] MEDS ORDERED: LEVALBUTEROL HCL 0.63 MG/3 ML VIAL.NEB. IH PRN ×2 (22:37→22:40)
[2021-05-31 23:37] LABS: LDH 232 U/L (87-246)
[2021-05-31] MEDS ORDERED: CEFTRIAXONE 1 GM/50 ML BAG ONE (23:41)
[2021-06-01] MEDS ORDERED: AZITHROMYCIN IVPB 500 MG/250 ML BAG IVPB ONE (00:15)
[2021-06-01] MEDS ORDERED: APIXABAN 5 MG TABLET ONE ×2 (01:03→23:02)
[2021-06-01] MEDS: APIXABAN 5 MG TABLET PO SCH ×2 (01:06→12:53)
[2021-06-01] MEDS ORDERED: FUROSEMIDE 40 MG/4 ML INJECTABLE VIAL ONE ×3 (06:13→16:29)
[2021-06-01] MEDS: FUROSEMIDE 40 MG/4 ML INJECTABLE VIAL IVPUSH SCH ×2 (06:21→15:06)
[2021-06-01 08:53] LABS: BASO % 0.1 % (0-2.0); HEMATOCRIT 40.5 % (35.4-49); LYMPH % 13.9 % (8-40); MCH 25.1 pg (25.7-33.7); MCHC 29.6 g/dl (32.0-35.9); MEAN CELL VOLUME 84.8 fl (80-96); MEAN PLT VOLUME 9.2 fl (7.5-11.1); PLATELET COUNT 294 10^3/uL (134-434); RBC 4.78 M/mm3 (4.00-5.60); RDW 20.2 % (11.9-15.9); WHITE BLOOD COUNT 2.2 K/mm3 (4.0-10.0)
[2021-06-01 09:10] LABS: ALBUMIN 2.1 g/dl (3.4-5.0); BLOOD UREA NITROGEN 21.7 mg/dL (7-18); CALCIUM 8.5 mg/dL (8.5-10.1); MAGNESIUM 1.9 mg/dL (1.8-2.4)
[2021-06-01 09:11] LABS: CHOLESTEROL 103 mg/dL (50-200)
[2021-06-01 09:12] LABS: TRIGLYCERIDES 59 mg/dL (0-150)
[2021-06-01 09:13] LABS: CREATININE 1.3 mg/dL (0.55-1.3); LDL CHOLESTEROL (ONLY SJRH) 60 mg/dL (5-100)
[2021-06-01 09:14] LABS: HDL CHOLESTEROL 35 mg/dL (40-60)
[2021-06-01 09:15] LABS: BILIRUBIN,TOTAL 1.3 mg/dL (0.2-1); PHOSPHOROUS 4.7 mg/dL (2.5-4.9); TOT PROT 7.3 g/dl (6.4-8.2)
[2021-06-01] MEDS ORDERED: LORazepam 2 MG/ML SDV VIAL IM ONE (10:00)
[2021-06-01] MEDS ORDERED: LORazepam 2 MG/ML SDV VIAL ONE ×2 (10:30→22:10)
[2021-06-01] MEDS ORDERED: LORazepam 2 MG/ML SDV VIAL IM PRN (11:11)
[2021-06-01] MEDS: methylPREDNISolone NA SUCC 40 MG/1 ML VIAL IVPUSH SCH ×2 (12:53→14:55)
[2021-06-01] MEDS: AZITHROMYCIN IVPB 250 MG in DEXTROSE 5%-WATER - 250 ML IVPB SCH ×2 (12:53→16:41)
[2021-06-01] MEDS: NICOTINE 14 MG/24 HOURS TOPICAL PATCH TD SCH (12:53)
[2021-06-01] MEDS: CARVEDILOL 6.25 MG TABLET (FP) PO SCH (12:54)
[2021-06-01] MEDS ORDERED: methylPREDNISolone NA SUCC 40 MG/1 ML VIAL ONE (14:45)
[2021-06-01] MEDS ORDERED: FUROSEMIDE 40 MG/4 ML INJECTABLE VIAL IVPUSH ONE (15:43)
[2021-06-01] MEDS ORDERED: ALBUTEROL SO4 HFA INHALER IH PRN (15:51)
[2021-06-01] MEDS ORDERED: CEFTRIAXONE 1 GM/50 ML BAG ONE (16:30)
[2021-06-01] MEDS: CEFTRIAXONE 1 GM in DEXTROSE 5%-WATER - 50 ML IVPB SCH (17:50)
[2021-06-01] MEDS ORDERED: CARVEDILOL 3.125 MG TABLET (FP) ONE (23:02)
[2021-06-02] MEDS: CARVEDILOL 6.25 MG TABLET (FP) PO SCH ×2 (01:33→10:23)
[2021-06-02] MEDS: APIXABAN 5 MG TABLET PO SCH ×2 (01:33→10:23)
[2021-06-02] MEDS: SACUBITRIL/VALSARTAN 24 MG-26 MG TABLET PO SCH ×2 (01:34→10:23)
[2021-06-02 05:30] LABS: URINE UREA NITROGEN 421 mg/dL (350-1000)
[2021-06-02] MEDS ORDERED: FUROSEMIDE 40 MG/4 ML INJECTABLE VIAL ONE ×2 (06:08→16:22)
[2021-06-02] MEDS: FUROSEMIDE 40 MG/4 ML INJECTABLE VIAL IVPUSH SCH ×2 (06:56→16:40)
[2021-06-02] MEDS ORDERED: APIXABAN 5 MG TABLET ONE (09:30)
[2021-06-02] MEDS ORDERED: methylPREDNISolone NA SUCC 40 MG/1 ML VIAL ONE (09:31)
[2021-06-02] MEDS ORDERED: CARVEDILOL 12.5 MG TABLET (FP) ONE (09:31)
[2021-06-02] MEDS ORDERED: CEFTRIAXONE 1 GM/50 ML BAG ONE (09:31)
[2021-06-02] MEDS: NICOTINE 14 MG/24 HOURS TOPICAL PATCH TD SCH (10:23)
[2021-06-02] MEDS: methylPREDNISolone NA SUCC 40 MG/1 ML VIAL IVPUSH SCH (10:23)
[2021-06-02] MEDS: CEFTRIAXONE 1 GM in DEXTROSE 5%-WATER - 50 ML IVPB SCH (10:23)
[2021-06-02] MEDS: BACITRACIN 15 GM TUBE TOPICAL OINTMENT TP SCH (10:23)
[2021-06-02] MEDS: AZITHROMYCIN IVPB 250 MG in DEXTROSE 5%-WATER - 250 ML IVPB SCH (10:45)
[2021-06-02 16:40] LABS: BLOOD UREA NITROGEN 31.4 mg/dL (7-18); CALCIUM 8.7 mg/dL (8.5-10.1)
[2021-06-02 16:41] LABS: ALBUMIN 2.5 g/dl (3.4-5.0)
[2021-06-02 16:43] LABS: CREATININE 1.5 mg/dL (0.55-1.3); PHOSPHOROUS 6.3 mg/dL (2.5-4.9); URIC ACID 8.3 mg/dL (2.6-7.2)
[2021-06-02 16:45] LABS: BILIRUBIN,TOTAL 1.2 mg/dL (0.2-1)
[2021-06-03] MEDS ORDERED: CARVEDILOL 3.125 MG TABLET (FP) ONE ×2 (00:28→10:47)
[2021-06-03] MEDS ORDERED: APIXABAN 5 MG TABLET ONE ×3 (00:28→22:52)
[2021-06-03] MEDS: APIXABAN 5 MG TABLET PO SCH ×3 (00:41→23:12)
[2021-06-03] MEDS: CARVEDILOL 6.25 MG TABLET (FP) PO SCH ×3 (00:41→23:12)
[2021-06-03] MEDS ORDERED: LORazepam 2 MG/ML SDV VIAL ONE (03:40)
[2021-06-03 08:56] LABS: BLOOD UREA NITROGEN 40.5 mg/dL (7-18); CALCIUM 8.7 mg/dL (8.5-10.1); MAGNESIUM 2.3 mg/dL (1.8-2.4)
[2021-06-03 08:57] LABS: ALBUMIN 2.8 g/dl (3.4-5.0)
[2021-06-03 08:59] LABS: PHOSPHOROUS 6.3 mg/dL (2.5-4.9)
[2021-06-03 09:01] LABS: BILIRUBIN,TOTAL 1.1 mg/dL (0.2-1); CREATININE 1.6 mg/dL (0.55-1.3); TOT PROT 7.8 g/dl (6.4-8.2)
[2021-06-03] MEDS ORDERED: ALBUTEROL SO4 HFA INHALER IH ONE (10:46)
[2021-06-03] MEDS ORDERED: BACITRACIN 0.9 GM PACKET ONE (10:47)
[2021-06-03] MEDS ORDERED: FUROSEMIDE 40 MG/4 ML INJECTABLE VIAL ONE ×2 (10:47→10:52)
[2021-06-03] MEDS ORDERED: methylPREDNISolone NA SUCC 40 MG/1 ML VIAL ONE (10:47)
[2021-06-03] MEDS ORDERED: CEFTRIAXONE 1 GM/50 ML BAG ONE (10:47)
[2021-06-03] MEDS: FUROSEMIDE 40 MG/4 ML INJECTABLE VIAL IVPUSH SCH (11:17)
[2021-06-03] MEDS: methylPREDNISolone NA SUCC 40 MG/1 ML VIAL IVPUSH SCH (11:18)
[2021-06-03] MEDS: AZITHROMYCIN IVPB 250 MG in DEXTROSE 5%-WATER - 250 ML IVPB SCH (11:18)
[2021-06-03] MEDS: INSULIN SLIDING SCALE (NOVOLOG) 1 VIAL SQ SCH ×3 (12:17→23:12)
[2021-06-03] MEDS: NICOTINE 14 MG/24 HOURS TOPICAL PATCH TD SCH (13:31)
[2021-06-03] MEDS: CEFTRIAXONE 1 GM in DEXTROSE 5%-WATER - 50 ML IVPB SCH (13:31)
[2021-06-03 14:33] LABS: BASO % 0.1 % (0-2.0); HEMATOCRIT 41.3 % (35.4-49); HEMOGLOBIN 12.6 GM/dL (11.7-16.9); LYMPH % 9.8 % (8-40); MCH 25.8 pg (25.7-33.7); MCHC 30.6 g/dl (32.0-35.9); MEAN CELL VOLUME 84.5 fl (80-96); MEAN PLT VOLUME 8.7 fl (7.5-11.1); MONO % 14.2 % (3.8-10.2); NEUT % 75.9 % (42.8-82.8); PLATELET COUNT 271 10^3/uL (134-434); RBC 4.89 M/mm3 (4.00-5.60); RDW 20.1 % (11.9-15.9); WHITE BLOOD COUNT 4.5 K/mm3 (4.0-10.0)
[2021-06-03] MEDS ORDERED: LACTATED RINGERS SOLUTION 1,000 ML/1,000 ML INFUS.BAG IV SCH (15:00)
[2021-06-03] MEDS ORDERED: LACTULOSE 20 GM/30 ML UDC (FOR ORAL USE ONLY) PO SCH (15:15)
[2021-06-03] MEDS ORDERED: LACTULOSE 20 GM/30 ML UDC (FOR ORAL USE ONLY) PO ONE (16:01)
[2021-06-03] MEDS ORDERED: LACTULOSE 20 GM/30 ML UDC (FOR ORAL USE ONLY) ONE (16:19)
[2021-06-03] MEDS: BACITRACIN 15 GM TUBE TOPICAL OINTMENT TP SCH (17:16)
[2021-06-03 21:05] LABS: ARTERIAL BLD GAS O2 SATURATION 93.6 % (95-98); ARTERIAL BLOOD GAS BASE EXCESS -1.2 mmol/L (-2-2); ARTERIAL BLOOD GAS PO2 81.3 mmHg (80-100); ARTERIAL BLOOD GAS pH 7.233 (7.350-7.450)
[2021-06-03 21:08] LABS: ALLENS TEST POSITIVE
[2021-06-03] MEDS ORDERED: ATORVASTATIN CA 20 MG TABLET (FP) ONE (22:52)
[2021-06-03] MEDS ORDERED: CARVEDILOL 12.5 MG TABLET (FP) ONE (22:53)
[2021-06-03] MEDS: ATORVASTATIN CA 20 MG TABLET (FP) PO SCH (23:12)
[2021-06-04] MEDS: INSULIN SLIDING SCALE (NOVOLOG) 1 VIAL SQ SCH ×4 (06:28→23:00)
[2021-06-04 07:10] LABS: ARTERIAL BLD GAS O2 SATURATION 94.5 % (95-98); ARTERIAL BLOOD GAS BASE EXCESS -0.4 mmol/L (-2-2); ARTERIAL BLOOD GAS PO2 92.4 mmHg (80-100)
[2021-06-04 07:16] LABS: ALLENS TEST POSITIVE
[2021-06-04 07:18] LABS: ARTERIAL BLOOD GAS pH 7.169 (7.350-7.450)
[2021-06-04] MEDS ORDERED: PHENYLEPHRINE HCL 10 MG/1 ML SINGLE DOSE VIAL ONE (08:13)
[2021-06-04] MEDS ORDERED: ETOMIDATE 20 MG/10 ML AMPUL IVPUSH ONE (08:13)
[2021-06-04] MEDS ORDERED: ROCURONIUM BROMIDE 50 MG/5 ML SYRINGE ONE (08:14)
[2021-06-04] MEDS ORDERED: SUCCINYLCHOLINE CHLORIDE 200 MG/10 ML SYRINGE ONE (08:14)
[2021-06-04] MEDS ORDERED: PROPOFOL 20 ML ONE (08:14)
[2021-06-04 08:55] LABS: HEMATOCRIT 39.7 % (35.4-49); HEMOGLOBIN 12.1 GM/dL (11.7-16.9); MCH 25.8 pg (25.7-33.7); MCHC 30.6 g/dl (32.0-35.9); MEAN CELL VOLUME 84.5 fl (80-96); MEAN PLT VOLUME 8.8 fl (7.5-11.1); PLATELET COUNT 239 10^3/uL (134-434); WHITE BLOOD COUNT 4.3 K/mm3 (4.0-10.0)
[2021-06-04] MEDS ORDERED: MIDAZOLAM IN 0.9 % SOD.CHLORID 1 MG/1 ML PLAST..BAG ONE (09:03)
[2021-06-04 09:10] LABS: CALCIUM 8.4 mg/dL (8.5-10.1)
[2021-06-04 09:11] LABS: ALBUMIN 2.5 g/dl (3.4-5.0); BLOOD UREA NITROGEN 61.6 mg/dL (7-18); MAGNESIUM 2.2 mg/dL (1.8-2.4)
[2021-06-04 09:14] LABS: CREATININE 1.9 mg/dL (0.55-1.3)
[2021-06-04 09:16] LABS: TOT PROT 7.8 g/dl (6.4-8.2)
[2021-06-04] MEDS: PROPOFOL 1,000,000 MCG/100 ML VIAL IVPB SCH (09:20)
[2021-06-04] MEDS ORDERED: FUROSEMIDE 40 MG/4 ML INJECTABLE VIAL IVPUSH SCH ×2 (10:00)
[2021-06-04] MEDS ORDERED: FUROSEMIDE 40 MG/4 ML INJECTABLE VIAL IVPUSH ONE ×3 (10:30→18:00)
[2021-06-04] MEDS ORDERED: cefTRIAXone SODIUM 1 GM VIAL ONE (10:31)
[2021-06-04] MEDS ORDERED: DEXTROSE 5%-WATER - 50 ML IVPB ONE (10:31)
[2021-06-04 10:33] LABS: ARTERIAL BLD GAS O2 SATURATION 99.3 % (95-98); ARTERIAL BLOOD GAS BASE EXCESS 4.2 mmol/L (-2-2); ARTERIAL BLOOD GAS PO2 170.4 mmHg (80-100); ARTERIAL BLOOD GAS pH 7.541 (7.350-7.450)
[2021-06-04 10:34] LABS: ALLENS TEST POSITIVE; VENT MODE A/C; VENT RATE 20
[2021-06-04] MEDS: PANTOPRAZOLE SODIUM 40 MG VIAL IVPUSH SCH (10:49)
[2021-06-04] MEDS: BACITRACIN 15 GM TUBE TOPICAL OINTMENT TP SCH (10:49)
[2021-06-04] MEDS: APIXABAN 5 MG TABLET PO SCH ×2 (10:49→22:47)
[2021-06-04] MEDS: CARVEDILOL 6.25 MG TABLET (FP) PO SCH ×2 (10:49→22:47)
[2021-06-04] MEDS: methylPREDNISolone NA SUCC 40 MG/1 ML VIAL IVPUSH SCH (10:50)
[2021-06-04] MEDS: CEFTRIAXONE 1 GM in DEXTROSE 5%-WATER - 50 ML IVPB SCH (10:50)
[2021-06-04] MEDS: AZITHROMYCIN IVPB 250 MG in DEXTROSE 5%-WATER - 250 ML IVPB SCH (11:11)
[2021-06-04] MEDS: MUPIROCIN 2% TOPICAL OINTMENT FOR DECOLONIZATION NS SCH ×2 (11:11→22:46)
[2021-06-04] MEDS ORDERED: VASOPRESSIN 20 UNITS/ML VIAL IV ONE (12:06)
[2021-06-04] MEDS ORDERED: VASOPRESSIN 40 UNITS/100 ML BAG IV SCH (12:15)
[2021-06-04] MEDS: NOREPINEPHRINE D5W PREMIX 16,000 MCG/500 ML BAG IVPB SCH (14:51)
[2021-06-04] MEDS ORDERED: FUROSEMIDE INJECTION 100 MG in DEXTROSE 5%-WATER - 40 ML IVPB SCH (15:15)
[2021-06-04] MEDS: NICOTINE 14 MG/24 HOURS TOPICAL PATCH TD SCH (19:13)
[2021-06-04] MEDS ORDERED: PT OWN MED DRAWER 7, Y5N ONE (22:44)
[2021-06-04] MEDS: ATORVASTATIN CA 20 MG TABLET (FP) PO SCH (22:47)
[2021-06-04] MEDS: CHLORHEXIDINE GLUCONATE 4% CLEANSER FOR DECOLONIZATION TP SCH (22:47)
[2021-06-05] MEDS: INSULIN SLIDING SCALE (NOVOLOG) 1 VIAL SQ SCH ×4 (06:38→22:34)
[2021-06-05 07:23] LABS: ARTERIAL BLD GAS O2 SATURATION 96.3 % (95-98); ARTERIAL BLOOD GAS BASE EXCESS 6.7 mmol/L (-2-2); ARTERIAL BLOOD GAS PO2 72.6 mmHg (80-100); ARTERIAL BLOOD GAS pH 7.545 (7.350-7.450)
[2021-06-05 07:40] LABS: ALLENS TEST POSITIVE
[2021-06-05 07:41] LABS: VENT MODE A/C; VENT RATE 14
[2021-06-05 07:48] LABS: BASO % 0.1 % (0-2.0); HEMATOCRIT 36.7 % (35.4-49); HEMOGLOBIN 11.5 GM/dL (11.7-16.9); LYMPH % 7.7 % (8-40); MCH 25.2 pg (25.7-33.7); MCHC 31.2 g/dl (32.0-35.9); MEAN CELL VOLUME 80.9 fl (80-96); MONO % 9.1 % (3.8-10.2); NEUT % 83.1 % (42.8-82.8); PLATELET COUNT 241 10^3/uL (134-434); RBC 4.54 M/mm3 (4.00-5.60); WHITE BLOOD COUNT 4.2 K/mm3 (4.0-10.0)
[2021-06-05 08:06] LABS: BLOOD UREA NITROGEN 58.5 mg/dL (7-18); MAGNESIUM 2.1 mg/dL (1.8-2.4)
[2021-06-05 08:09] LABS: CREATININE 1.7 mg/dL (0.55-1.3)
[2021-06-05 08:10] LABS: BILIRUBIN,TOTAL 1.1 mg/dL (0.2-1)
[2021-06-05 08:12] LABS: TOT PROT 5.6 g/dl (6.4-8.2)
[2021-06-05] MEDS ORDERED: PT OWN MED DRAWER 7, Y5N ONE (09:24)
[2021-06-05] MEDS ORDERED: DEXTROSE 5%-WATER - 50 ML IVPB ONE (09:25)
[2021-06-05] MEDS ORDERED: cefTRIAXone SODIUM 1 GM VIAL ONE (09:25)
[2021-06-05] MEDS: BACITRACIN 15 GM TUBE TOPICAL OINTMENT TP SCH (09:38)
[2021-06-05] MEDS: PANTOPRAZOLE SODIUM 40 MG VIAL IVPUSH SCH (09:39)
[2021-06-05] MEDS: APIXABAN 5 MG TABLET PO SCH ×2 (09:39→22:31)
[2021-06-05] MEDS: NICOTINE 14 MG/24 HOURS TOPICAL PATCH TD SCH (09:39)
[2021-06-05] MEDS: CEFTRIAXONE 1 GM in DEXTROSE 5%-WATER - 50 ML IVPB SCH (09:40)
[2021-06-05] MEDS: methylPREDNISolone NA SUCC 40 MG/1 ML VIAL IVPUSH SCH (09:41)
[2021-06-05] MEDS: CARVEDILOL 6.25 MG TABLET (FP) PO SCH ×2 (09:56→22:31)
[2021-06-05] MEDS: PROPOFOL 1,000,000 MCG/100 ML VIAL IVPB SCH ×2 (09:57→18:03)
[2021-06-05] MEDS ORDERED: FUROSEMIDE 40 MG/4 ML INJECTABLE VIAL IVPUSH SCH ×2 (10:00)
[2021-06-05] MEDS ORDERED: LACTULOSE 20 GM/30 ML UDC (FOR ORAL USE ONLY) PO PRN (10:55)
[2021-06-05] MEDS: RIFAXIMIN 550 MG TABLET PO SCH ×2 (11:00→22:38)
[2021-06-05] MEDS: FUROSEMIDE 40 MG/4 ML INJECTABLE VIAL IVPUSH SCH ×2 (11:46→13:38)
[2021-06-05 12:25] LABS: ARTERIAL BLD GAS O2 SATURATION 90.3 % (95-98); ARTERIAL BLOOD GAS BASE EXCESS 4.2 mmol/L (-2-2); ARTERIAL BLOOD GAS PO2 51.2 mmHg (80-100); ARTERIAL BLOOD GAS pH 7.529 (7.350-7.450)
[2021-06-05 12:28] LABS: ALLENS TEST POSITIVE; VENT MODE A/C; VENT RATE 14
[2021-06-05] MEDS: MUPIROCIN 2% TOPICAL OINTMENT FOR DECOLONIZATION NS SCH ×2 (13:37→22:31)
[2021-06-05] MEDS: LACTULOSE 20 GM/30 ML UDC (FOR ORAL USE ONLY) PO SCH ×2 (14:00→22:31)
[2021-06-05] MEDS: ATORVASTATIN CA 20 MG TABLET (FP) PO SCH (22:31)
[2021-06-05] MEDS: SACUBITRIL/VALSARTAN 24 MG-26 MG TABLET PO SCH (22:34)
[2021-06-05] MEDS: CHLORHEXIDINE GLUCONATE 4% CLEANSER FOR DECOLONIZATION TP SCH (22:34)
[2021-06-06] MEDS: LACTULOSE 20 GM/30 ML UDC (FOR ORAL USE ONLY) PO SCH ×3 (05:59→22:54)
[2021-06-06] MEDS: FUROSEMIDE 40 MG/4 ML INJECTABLE VIAL IVPUSH SCH ×2 (05:59→10:12)
[2021-06-06] MEDS: NOREPINEPHRINE D5W PREMIX 16,000 MCG/500 ML BAG IVPB SCH (05:59)
[2021-06-06 06:31] LABS: ARTERIAL BLD GAS O2 SATURATION 97.8 % (95-98); ARTERIAL BLOOD GAS BASE EXCESS 8.2 mmol/L (-2-2); ARTERIAL BLOOD GAS PO2 94.3 mmHg (80-100); ARTERIAL BLOOD GAS pH 7.526 (7.350-7.450)
[2021-06-06 06:51] LABS: ALLENS TEST POSITIVE
[2021-06-06] MEDS: INSULIN SLIDING SCALE (NOVOLOG) 1 VIAL SQ SCH ×4 (06:53→23:16)
[2021-06-06 06:55] LABS: VENT MODE A/C; VENT RATE 14
[2021-06-06 08:02] LABS: BASO % 0.2 % (0-2.0); EOS % 0.1 % (0-4.5); HEMATOCRIT 35.6 % (35.4-49); HEMOGLOBIN 11.3 GM/dL (11.7-16.9); LYMPH % 10.4 % (8-40); MCH 25.6 pg (25.7-33.7); MCHC 31.6 g/dl (32.0-35.9); MEAN CELL VOLUME 80.9 fl (80-96); MONO % 12.2 % (3.8-10.2); NEUT % 77.1 % (42.8-82.8); PLATELET COUNT 222 10^3/uL (134-434); RDW 19.9 % (11.9-15.9); WHITE BLOOD COUNT 3.3 K/mm3 (4.0-10.0)
[2021-06-06 08:25] LABS: ALBUMIN 2.1 g/dl (3.4-5.0); BLOOD UREA NITROGEN 51.9 mg/dL (7-18); CALCIUM 7.8 mg/dL (8.5-10.1); MAGNESIUM 2.2 mg/dL (1.8-2.4)
[2021-06-06 08:28] LABS: CREATININE 1.5 mg/dL (0.55-1.3); PHOSPHOROUS 3.5 mg/dL (2.5-4.9)
[2021-06-06 08:30] LABS: TOT PROT 5.8 g/dl (6.4-8.2)
[2021-06-06] MEDS ORDERED: PT OWN MED DRAWER 7, Y5N ONE ×2 (09:20→10:07)
[2021-06-06] MEDS ORDERED: DEXMEDETOMIDINE IN 0.9 % NACL 400 MCG/100 ML VIAL IVPB SCH (09:30)
[2021-06-06] MEDS: PROPOFOL 1,000,000 MCG/100 ML VIAL IVPB SCH (10:07)
[2021-06-06] MEDS: RIFAXIMIN 550 MG TABLET PO SCH ×2 (10:08→23:16)
[2021-06-06] MEDS: BACITRACIN 15 GM TUBE TOPICAL OINTMENT TP SCH (10:08)
[2021-06-06] MEDS: CARVEDILOL 6.25 MG TABLET (FP) PO SCH ×2 (10:08→22:54)
[2021-06-06] MEDS: MUPIROCIN 2% TOPICAL OINTMENT FOR DECOLONIZATION NS SCH ×2 (10:08→22:55)
[2021-06-06] MEDS: SACUBITRIL/VALSARTAN 24 MG-26 MG TABLET PO SCH ×2 (10:09→22:55)
[2021-06-06] MEDS: NICOTINE 14 MG/24 HOURS TOPICAL PATCH TD SCH (10:09)
[2021-06-06] MEDS: APIXABAN 5 MG TABLET PO SCH ×2 (10:10→22:54)
[2021-06-06] MEDS: PANTOPRAZOLE SODIUM 40 MG VIAL IVPUSH SCH (10:10)
[2021-06-06 15:57] VITALS: BMI 25.2
[2021-06-06] MEDS: AMINO ACIDS/PROTEIN HYDROLYS 30 ML LIQUID.PKT PO SCH (17:44)
[2021-06-06] MEDS: FENTANYL NS IVPB 500 MCG/100 ML BAG IVPB SCH (17:45)
[2021-06-06] MEDS: CHLORHEXIDINE GLUCONATE 4% CLEANSER FOR DECOLONIZATION TP SCH (22:54)
[2021-06-06] MEDS: ATORVASTATIN CA 20 MG TABLET (FP) PO SCH (22:54)
[2021-06-07] MEDS ORDERED: PROPOFOL 1,000,000 MCG/100 ML VIAL IVPB SCH (01:00)
[2021-06-07] MEDS: LACTULOSE 20 GM/30 ML UDC (FOR ORAL USE ONLY) PO SCH ×2 (05:55→13:22)
[2021-06-07] MEDS: INSULIN SLIDING SCALE (NOVOLOG) 1 VIAL SQ SCH ×3 (07:00→19:47)
[2021-06-07 07:02] LABS: EOS % 0.4 % (0-4.5); HEMATOCRIT 34.5 % (35.4-49); HEMOGLOBIN 11.1 GM/dL (11.7-16.9); LYMPH % 9.2 % (8-40); MCH 26.2 pg (25.7-33.7); MCHC 32.2 g/dl (32.0-35.9); MEAN CELL VOLUME 81.4 fl (80-96); MEAN PLT VOLUME 8.6 fl (7.5-11.1); MONO % 9.5 % (3.8-10.2); NEUT % 80.9 % (42.8-82.8); PLATELET COUNT 161 10^3/uL (134-434); RBC 4.24 M/mm3 (4.00-5.60); WHITE BLOOD COUNT 4.4 K/mm3 (4.0-10.0)
[2021-06-07 07:23] LABS: CHLORIDE 108 mmol/L (98-107); SODIUM 149 mmol/L (136-145)
[2021-06-07 07:28] LABS: CALCIUM 7.9 mg/dL (8.5-10.1)
[2021-06-07 07:29] LABS: ALBUMIN 2.2 g/dl (3.4-5.0); CO2 36 mmol/L (21-32); GLUCOSE,RANDOM 125 mg/dL (74-106); MAGNESIUM 2.2 mg/dL (1.8-2.4)
[2021-06-07 07:32] LABS: CREATININE 1.4 mg/dL (0.55-1.3); PHOSPHOROUS 2.8 mg/dL (2.5-4.9); SGOT/AST 24 U/L (15-37); SGPT/ALT 18 U/L (13-61)
[2021-06-07 07:33] LABS: BILIRUBIN,TOTAL 0.7 mg/dL (0.2-1); TOT PROT 5.8 g/dl (6.4-8.2)
[2021-06-07 07:34] LABS: ALK PHOS 82 U/L (45-117)
[2021-06-07 07:41] LABS: ANION GAP 5 MMOL/L (8-16)
[2021-06-07] MEDS ORDERED: POTASSIUM CHLORIDE ORAL LIQUID 20 MEQ/15 ML PO ONE ×2 (07:42→15:14)
[2021-06-07] MEDS: KCL 10 MEQ IVPB 10 MEQ/100 ML INFUS.BAG IVPB SCH ×3 (08:40→12:09)
[2021-06-07] MEDS: PANTOPRAZOLE SODIUM 40 MG VIAL IVPUSH SCH (10:02)
[2021-06-07] MEDS: FUROSEMIDE 40 MG/4 ML INJECTABLE VIAL IVPUSH SCH (10:02)
[2021-06-07] MEDS: AMINO ACIDS/PROTEIN HYDROLYS 30 ML LIQUID.PKT PO SCH ×2 (10:02→19:05)
[2021-06-07] MEDS: APIXABAN 5 MG TABLET PO SCH ×2 (10:02→23:26)
[2021-06-07] MEDS: RIFAXIMIN 550 MG TABLET PO SCH ×2 (10:02→23:27)
[2021-06-07] MEDS: SACUBITRIL/VALSARTAN 24 MG-26 MG TABLET PO SCH ×2 (10:03→23:26)
[2021-06-07] MEDS: MUPIROCIN 2% TOPICAL OINTMENT FOR DECOLONIZATION NS SCH ×2 (10:03→22:10)
[2021-06-07] MEDS: CARVEDILOL 6.25 MG TABLET (FP) PO SCH ×2 (10:04→23:26)
[2021-06-07] MEDS: BACITRACIN 15 GM TUBE TOPICAL OINTMENT TP SCH (10:05)
[2021-06-07] MEDS ORDERED: PT OWN MED DRAWER 7, Y5N ONE (10:46)
[2021-06-07] MEDS: NICOTINE 14 MG/24 HOURS TOPICAL PATCH TD SCH (10:48)
[2021-06-07 14:22] LABS: ALBUMIN 2.2 g/dl (3.4-5.0); BLOOD UREA NITROGEN 45.7 mg/dL (7-18)
[2021-06-07 14:25] LABS: CREATININE 1.3 mg/dL (0.55-1.3)
[2021-06-07 14:27] LABS: BILIRUBIN,TOTAL 0.7 mg/dL (0.2-1)
[2021-06-07] MEDS: DEXMEDETOMIDINE IN 0.9 % NACL 400 MCG/100 ML VIAL IVPB SCH (19:00)
[2021-06-07] MEDS: FENTANYL NS IVPB 500 MCG/100 ML BAG IVPB SCH (19:00)
[2021-06-07] MEDS: CHLORHEXIDINE GLUCONATE 4% CLEANSER FOR DECOLONIZATION TP SCH (23:26)
[2021-06-07] MEDS: ATORVASTATIN CA 20 MG TABLET (FP) PO SCH (23:26)
[2021-06-08] MEDS: INSULIN SLIDING SCALE (NOVOLOG) 1 VIAL SQ SCH ×4 (00:04→17:30)
[2021-06-08 07:21] LABS: BASO % 0.3 % (0-2.0); EOS % 1.9 % (0-4.5); HEMATOCRIT 36.1 % (35.4-49); HEMOGLOBIN 11.5 GM/dL (11.7-16.9); LYMPH % 15.9 % (8-40); MCH 25.9 pg (25.7-33.7); MCHC 31.8 g/dl (32.0-35.9); MEAN CELL VOLUME 81.5 fl (80-96); MEAN PLT VOLUME 8.4 fl (7.5-11.1); MONO % 11.7 % (3.8-10.2); NEUT % 70.2 % (42.8-82.8); PLATELET COUNT 125 10^3/uL (134-434); RBC 4.44 M/mm3 (4.00-5.60); RDW 19.8 % (11.9-15.9); WHITE BLOOD COUNT 3.8 K/mm3 (4.0-10.0)
[2021-06-08 07:23] LABS: ARTERIAL BLD GAS O2 SATURATION 96.5 % (95-98); ARTERIAL BLOOD GAS BASE EXCESS 8.9 mmol/L (-2-2); ARTERIAL BLOOD GAS PO2 78.9 mmHg (80-100)
[2021-06-08 07:37] LABS: ALLENS TEST POSITIVE; VENT MODE A/C
[2021-06-08 07:38] LABS: VENT RATE 14
[2021-06-08 08:24] LABS: ALBUMIN 2.1 g/dl (3.4-5.0); BLOOD UREA NITROGEN 37.3 mg/dL (7-18)
[2021-06-08 08:28] LABS: PHOSPHOROUS 2.5 mg/dL (2.5-4.9)
[2021-06-08 08:29] LABS: BILIRUBIN,TOTAL 1.1 mg/dL (0.2-1); TOT PROT 5.8 g/dl (6.4-8.2)
[2021-06-08] MEDS: PANTOPRAZOLE SODIUM 40 MG VIAL IVPUSH SCH (10:34)
[2021-06-08] MEDS: RIFAXIMIN 550 MG TABLET PO SCH (10:35)
[2021-06-08] MEDS: CARVEDILOL 6.25 MG TABLET (FP) PO SCH ×2 (10:35→10:46)
[2021-06-08] MEDS: FUROSEMIDE 40 MG/4 ML INJECTABLE VIAL IVPUSH SCH (10:35)
[2021-06-08] MEDS: APIXABAN 5 MG TABLET PO SCH (10:35)
[2021-06-08] MEDS: MUPIROCIN 2% TOPICAL OINTMENT FOR DECOLONIZATION NS SCH ×2 (10:35→22:00)
[2021-06-08] MEDS: AMINO ACIDS/PROTEIN HYDROLYS 30 ML LIQUID.PKT PO SCH (10:36)
[2021-06-08] MEDS: SACUBITRIL/VALSARTAN 24 MG-26 MG TABLET PO SCH (10:36)
[2021-06-08] MEDS: BACITRACIN 15 GM TUBE TOPICAL OINTMENT TP SCH (10:36)
[2021-06-08] MEDS ORDERED: PT OWN MED DRAWER 7, Y5N ONE ×2 (10:39→22:56)
[2021-06-08] MEDS: NICOTINE 14 MG/24 HOURS TOPICAL PATCH TD SCH (10:42)
[2021-06-08] MEDS: DEXMEDETOMIDINE IN 0.9 % NACL 400 MCG/100 ML VIAL IVPB SCH (15:57)
[2021-06-08] MEDS: KCL 10 MEQ IVPB 10 MEQ/100 ML INFUS.BAG IVPB SCH ×2 (15:57→17:31)
[2021-06-08] MEDS ORDERED: DEXTROSE 50%-WATER 25 GM/50 ML DISP.SYRIN ONE (17:16)
[2021-06-08] MEDS: FENTANYL NS IVPB 500 MCG/100 ML BAG IVPB SCH (17:31)
[2021-06-09] MEDS: CHLORHEXIDINE GLUCONATE 4% CLEANSER FOR DECOLONIZATION TP SCH ×2 (00:01→21:54)
[2021-06-09] MEDS: SACUBITRIL/VALSARTAN 24 MG-26 MG TABLET PO SCH ×3 (00:03→21:54)
[2021-06-09] MEDS ORDERED: PT OWN MED DRAWER 7, Y5N ONE (00:15)
[2021-06-09] MEDS: ATORVASTATIN CA 20 MG TABLET (FP) PO SCH ×2 (00:18→21:54)
[2021-06-09] MEDS: FENTANYL NS IVPB 500 MCG/100 ML BAG IVPB SCH (04:01)
[2021-06-09 06:48] LABS: ARTERIAL BLD GAS O2 SATURATION 97.9 % (95-98); ARTERIAL BLOOD GAS BASE EXCESS 9.8 mmol/L (-2-2); ARTERIAL BLOOD GAS PO2 100.3 mmHg (80-100); ARTERIAL BLOOD GAS pH 7.478 (7.350-7.450)
[2021-06-09 06:58] LABS: VENT MODE A/C
[2021-06-09 06:59] LABS: VENT RATE 14
[2021-06-09 07:07] LABS: EOS % 0.9 % (0-4.5); HEMATOCRIT 37.2 % (35.4-49); HEMOGLOBIN 11.4 GM/dL (11.7-16.9); LYMPH % 9.3 % (8-40); MCH 25.2 pg (25.7-33.7); MCHC 30.5 g/dl (32.0-35.9); MEAN CELL VOLUME 82.6 fl (80-96); MEAN PLT VOLUME 9.3 fl (7.5-11.1); NEUT % 76.8 % (42.8-82.8); PLATELET COUNT 138 10^3/uL (134-434); RBC 4.51 M/mm3 (4.00-5.60); RDW 19.8 % (11.9-15.9); WHITE BLOOD COUNT 6.3 K/mm3 (4.0-10.0)
[2021-06-09 07:30] LABS: CALCIUM 7.7 mg/dL (8.5-10.1)
[2021-06-09 07:31] LABS: BLOOD UREA NITROGEN 28.9 mg/dL (7-18); MAGNESIUM 2.1 mg/dL (1.8-2.4)
[2021-06-09 07:34] LABS: CREATININE 0.9 mg/dL (0.55-1.3); PHOSPHOROUS 2.3 mg/dL (2.5-4.9)
[2021-06-09 07:35] LABS: TOT PROT 5.6 g/dl (6.4-8.2)
[2021-06-09 07:36] LABS: BILIRUBIN,TOTAL 1.1 mg/dL (0.2-1)
[2021-06-09] MEDS: AMINO ACIDS/PROTEIN HYDROLYS 30 ML LIQUID.PKT PO SCH ×2 (08:55→17:15)
[2021-06-09] MEDS ORDERED: RAPID SEQUENCE INTUBATION KIT NR ONE (10:39)
[2021-06-09] MEDS: CARVEDILOL 6.25 MG TABLET (FP) PO SCH ×3 (10:41→21:54)
[2021-06-09] MEDS: BACITRACIN 15 GM TUBE TOPICAL OINTMENT TP SCH (10:41)
[2021-06-09] MEDS: APIXABAN 5 MG TABLET PO SCH ×3 (10:41→21:54)
[2021-06-09] MEDS: NICOTINE 14 MG/24 HOURS TOPICAL PATCH TD SCH (10:42)
[2021-06-09] MEDS: RIFAXIMIN 550 MG TABLET PO SCH ×3 (10:42→21:54)
[2021-06-09] MEDS: AMIODARONE HCL 200 MG TABLET PO SCH (10:42)
[2021-06-09] MEDS: FUROSEMIDE 40 MG/4 ML INJECTABLE VIAL IVPUSH SCH (10:42)
[2021-06-09] MEDS: PANTOPRAZOLE SODIUM 40 MG VIAL IVPUSH SCH (10:42)
[2021-06-09] MEDS: INSULIN SLIDING SCALE (NOVOLOG) 1 VIAL SQ SCH ×4 (11:20→22:00)
[2021-06-09] MEDS ORDERED: DEXTROSE 50%-WATER - 25 GM/50 ML VIAL IVPUSH ONE (22:03)
[2021-06-09] MEDS ORDERED: DEXTROSE 50%-WATER 25 GM/50 ML DISP.SYRIN ONE (22:06)
[2021-06-09] MEDS ORDERED: DEXTROSE 5%-NORMAL SALINE 1,000 ML IV SCH ×2 (22:15)
[2021-06-10] MEDS ORDERED: DEXTROSE 50%-WATER - 25 GM/50 ML VIAL IVPUSH ONE ×3 (05:51→17:44)
[2021-06-10] MEDS ORDERED: DEXTROSE 50%-WATER 25 GM/50 ML DISP.SYRIN ONE ×3 (05:55→18:08)
[2021-06-10] MEDS ORDERED: DEXTROSE 5%-NORMAL SALINE 1,000 ML IV SCH ×2 (06:28→07:29)
[2021-06-10] MEDS: INSULIN SLIDING SCALE (NOVOLOG) 1 VIAL SQ SCH ×2 (06:41→11:48)
[2021-06-10 06:53] LABS: HEMATOCRIT 41.5 % (35.4-49); HEMOGLOBIN 12.6 GM/dL (11.7-16.9); MCH 25.6 pg (25.7-33.7); MCHC 30.2 g/dl (32.0-35.9); MEAN CELL VOLUME 84.7 fl (80-96); MEAN PLT VOLUME 8.8 fl (7.5-11.1); PLATELET COUNT 136 10^3/uL (134-434); RDW 19.9 % (11.9-15.9); WHITE BLOOD COUNT 6.1 K/mm3 (4.0-10.0)
[2021-06-10 07:17] LABS: ALBUMIN 2.4 g/dl (3.4-5.0); BLOOD UREA NITROGEN 26.3 mg/dL (7-18)
[2021-06-10 07:18] LABS: MAGNESIUM 2.1 mg/dL (1.8-2.4)
[2021-06-10 07:20] LABS: CREATININE 0.9 mg/dL (0.55-1.3); PHOSPHOROUS 3.7 mg/dL (2.5-4.9)
[2021-06-10 07:22] LABS: BILIRUBIN,TOTAL 1.2 mg/dL (0.2-1); TOT PROT 6.7 g/dl (6.4-8.2)
[2021-06-10] MEDS: AMINO ACIDS/PROTEIN HYDROLYS 30 ML LIQUID.PKT PO SCH ×3 (08:01→18:07)
[2021-06-10] MEDS: PANTOPRAZOLE SODIUM 40 MG VIAL IVPUSH SCH (09:01)
[2021-06-10] MEDS: SACUBITRIL/VALSARTAN 24 MG-26 MG TABLET PO SCH ×2 (09:01→21:17)
[2021-06-10] MEDS: AMIODARONE HCL 200 MG TABLET PO SCH (09:01)
[2021-06-10] MEDS: APIXABAN 5 MG TABLET PO SCH ×2 (09:01→21:16)
[2021-06-10] MEDS: CARVEDILOL 6.25 MG TABLET (FP) PO SCH ×2 (09:01→21:16)
[2021-06-10] MEDS: BACITRACIN 15 GM TUBE TOPICAL OINTMENT TP SCH (09:01)
[2021-06-10] MEDS: NICOTINE 14 MG/24 HOURS TOPICAL PATCH TD SCH (09:01)
[2021-06-10] MEDS: RIFAXIMIN 550 MG TABLET PO SCH ×2 (09:02→21:17)
[2021-06-10 09:29] LABS: ANISOCYTOSIS 1+; MACROCYTOSIS 1+; PLATELET ESTIMATE DECREASED
[2021-06-10] MEDS: DEXTROSE 5%-WATER - 1,000 ML IV SCH (16:26)
[2021-06-10] MEDS ORDERED: ALBUTEROL SO4 HFA INHALER IH PRN (17:18)
[2021-06-10] MEDS ORDERED: DEXTROSE 50%-WATER - 25 GM/50 ML VIAL IVPUSH PRN ×2 (18:40→18:41)
[2021-06-10] MEDS: CHLORHEXIDINE GLUCONATE 4% CLEANSER FOR DECOLONIZATION TP SCH (21:17)
[2021-06-10] MEDS: ATORVASTATIN CA 20 MG TABLET (FP) PO SCH (21:19)
[2021-06-10] MEDS ORDERED: INSULIN SLIDING SCALE (NOVOLOG) 1 VIAL SQ SCH (22:00)
[2021-06-11] MEDS: DEXTROSE 5%-WATER - 1,000 ML IV SCH ×2 (04:48→21:30)
[2021-06-11 07:15] LABS: BASO % 0.1 % (0-2.0); EOS % 0.6 % (0-4.5); HEMATOCRIT 39.9 % (35.4-49); HEMOGLOBIN 11.7 GM/dL (11.7-16.9); LYMPH % 9.3 % (8-40); MCH 25.1 pg (25.7-33.7); MCHC 29.4 g/dl (32.0-35.9); MEAN CELL VOLUME 85.2 fl (80-96); MEAN PLT VOLUME 9.8 fl (7.5-11.1); MONO % 14.2 % (3.8-10.2); NEUT % 75.8 % (42.8-82.8); PLATELET COUNT 147 10^3/uL (134-434); RBC 4.68 M/mm3 (4.00-5.60); RDW 19.9 % (11.9-15.9); WHITE BLOOD COUNT 6.1 K/mm3 (4.0-10.0)
[2021-06-11 07:18] LABS: ALBUMIN 2.2 g/dl (3.4-5.0); BLOOD UREA NITROGEN 24.7 mg/dL (7-18); CALCIUM 7.9 mg/dL (8.5-10.1); MAGNESIUM 2.1 mg/dL (1.8-2.4)
[2021-06-11 07:21] LABS: CREATININE 0.8 mg/dL (0.55-1.3)
[2021-06-11 07:22] LABS: BILIRUBIN,TOTAL 1.1 mg/dL (0.2-1); PHOSPHOROUS 2.8 mg/dL (2.5-4.9); TOT PROT 6.4 g/dl (6.4-8.2)
[2021-06-11] MEDS: AMINO ACIDS/PROTEIN HYDROLYS 30 ML LIQUID.PKT PO SCH ×2 (09:33→21:31)
[2021-06-11] MEDS: AMIODARONE HCL 200 MG TABLET PO SCH (09:34)
[2021-06-11] MEDS: RIFAXIMIN 550 MG TABLET PO SCH ×2 (09:34→21:31)
[2021-06-11] MEDS: APIXABAN 5 MG TABLET PO SCH ×2 (09:34→21:31)
[2021-06-11] MEDS: CARVEDILOL 6.25 MG TABLET (FP) PO SCH ×2 (09:34→21:31)
[2021-06-11] MEDS: NICOTINE 14 MG/24 HOURS TOPICAL PATCH TD SCH (09:35)
[2021-06-11] MEDS: PANTOPRAZOLE SODIUM 40 MG VIAL IVPUSH SCH (09:35)
[2021-06-11] MEDS: SACUBITRIL/VALSARTAN 24 MG-26 MG TABLET PO SCH ×2 (09:37→21:31)
[2021-06-11] MEDS ORDERED: AMINO ACIDS 4.25%/D5W 1,000 ML IV SCH (16:15)
[2021-06-11] MEDS ORDERED: DEXTROSE 50%-WATER 25 GM/50 ML DISP.SYRIN ONE ×2 (16:57→21:43)
[2021-06-11] MEDS: ATORVASTATIN CA 20 MG TABLET (FP) PO SCH (21:31)
[2021-06-11] MEDS: CHLORHEXIDINE GLUCONATE 4% CLEANSER FOR DECOLONIZATION TP SCH (21:31)
[2021-06-11] MEDS ORDERED: DEXTROSE 50%-WATER - 25 GM/50 ML VIAL IVPUSH ONE (22:34)
[2021-06-12] MEDS ORDERED: DEXTROSE 50%-WATER 25 GM/50 ML DISP.SYRIN IVPUSH ONE (07:22)
[2021-06-12] MEDS ORDERED: DEXTROSE 50%-WATER 25 GM/50 ML DISP.SYRIN ONE (08:05)
[2021-06-12] MEDS: BACITRACIN 15 GM TUBE TOPICAL OINTMENT TP SCH ×2 (08:22→10:32)
[2021-06-12] MEDS: NICOTINE 14 MG/24 HOURS TOPICAL PATCH TD SCH (10:31)
[2021-06-12] MEDS: APIXABAN 5 MG TABLET PO SCH ×2 (10:32→21:21)
[2021-06-12] MEDS: AMIODARONE HCL 200 MG TABLET PO SCH (10:32)
[2021-06-12] MEDS: PANTOPRAZOLE SODIUM 40 MG VIAL IVPUSH SCH (10:32)
[2021-06-12] MEDS: AMINO ACIDS/PROTEIN HYDROLYS 30 ML LIQUID.PKT PO SCH ×2 (10:32→17:39)
[2021-06-12] MEDS: CARVEDILOL 6.25 MG TABLET (FP) PO SCH ×2 (10:32→21:21)
[2021-06-12] MEDS: RIFAXIMIN 550 MG TABLET PO SCH ×2 (10:32→21:20)
[2021-06-12] MEDS: SACUBITRIL/VALSARTAN 24 MG-26 MG TABLET PO SCH ×2 (10:33→21:20)
[2021-06-12] MEDS: DEXTROSE 5%-WATER - 1,000 ML IV SCH (11:21)
[2021-06-12] MEDS: AMINO ACIDS 4.25%/D5W 1,000 ML IV SCH ×2 (13:01→17:42)
[2021-06-12] MEDS ORDERED: DEXTROSE 10%-WATER - 1,000 ML IV SCH ×2 (13:30→15:00)
[2021-06-12] MEDS: ATORVASTATIN CA 20 MG TABLET (FP) PO SCH (21:20)
[2021-06-12] MEDS: CHLORHEXIDINE GLUCONATE 4% CLEANSER FOR DECOLONIZATION TP SCH (21:21)
[2021-06-12 21:38] LABS: BASO % 0.3 % (0-2.0); EOS % 0.5 % (0-4.5); HEMATOCRIT 37.3 % (35.4-49); HEMOGLOBIN 11.3 GM/dL (11.7-16.9); LYMPH % 11.6 % (8-40); MCH 25.4 pg (25.7-33.7); MCHC 30.2 g/dl (32.0-35.9); MEAN CELL VOLUME 84.2 fl (80-96); MEAN PLT VOLUME 9.4 fl (7.5-11.1); MONO % 18.2 % (3.8-10.2); NEUT % 69.4 % (42.8-82.8); PLATELET COUNT 140 10^3/uL (134-434); RBC 4.43 M/mm3 (4.00-5.60); RDW 19.9 % (11.9-15.9); WHITE BLOOD COUNT 4.6 K/mm3 (4.0-10.0)
[2021-06-12 21:58] LABS: CALCIUM 8.1 mg/dL (8.5-10.1)
[2021-06-12 21:59] LABS: ALBUMIN 2.3 g/dl (3.4-5.0); BLOOD UREA NITROGEN 26.4 mg/dL (7-18); MAGNESIUM 2.1 mg/dL (1.8-2.4)
[2021-06-12 22:02] LABS: CREATININE 0.9 mg/dL (0.55-1.3); PHOSPHOROUS 2.1 mg/dL (2.5-4.9)
[2021-06-12 22:03] LABS: TOT PROT 6.3 g/dl (6.4-8.2)
[2021-06-13 07:46] LABS: HEMOGLOBIN 11.1 GM/dL (11.7-16.9); MCH 25.8 pg (25.7-33.7); MCHC 30.8 g/dl (32.0-35.9); MEAN CELL VOLUME 83.5 fl (80-96); MEAN PLT VOLUME 9.2 fl (7.5-11.1); PLATELET COUNT 132 10^3/uL (134-434); RBC 4.31 M/mm3 (4.00-5.60); RDW 19.3 % (11.9-15.9); WHITE BLOOD COUNT 4.2 K/mm3 (4.0-10.0)
[2021-06-13 08:11] LABS: ALBUMIN 2.3 g/dl (3.4-5.0); BLOOD UREA NITROGEN 28.5 mg/dL (7-18); CALCIUM 8.2 mg/dL (8.5-10.1); MAGNESIUM 2.1 mg/dL (1.8-2.4)
[2021-06-13 08:14] LABS: CREATININE 0.8 mg/dL (0.55-1.3); PHOSPHOROUS 2.1 mg/dL (2.5-4.9)
[2021-06-13 08:16] LABS: BILIRUBIN,TOTAL 1.1 mg/dL (0.2-1); TOT PROT 6.5 g/dl (6.4-8.2)
[2021-06-13] MEDS: AMINO ACIDS/PROTEIN HYDROLYS 30 ML LIQUID.PKT PO SCH ×2 (08:45→17:50)
[2021-06-13] MEDS: APIXABAN 5 MG TABLET PO SCH ×2 (09:44→22:34)
[2021-06-13] MEDS: RIFAXIMIN 550 MG TABLET PO SCH ×2 (09:44→22:34)
[2021-06-13] MEDS: SACUBITRIL/VALSARTAN 24 MG-26 MG TABLET PO SCH ×2 (09:44→22:34)
[2021-06-13] MEDS: NICOTINE 14 MG/24 HOURS TOPICAL PATCH TD SCH (09:44)
[2021-06-13] MEDS: PANTOPRAZOLE SODIUM 40 MG VIAL IVPUSH SCH (09:44)
[2021-06-13] MEDS: CARVEDILOL 6.25 MG TABLET (FP) PO SCH ×2 (09:44→22:34)
[2021-06-13] MEDS: AMIODARONE HCL 200 MG TABLET PO SCH (09:44)
[2021-06-13] MEDS: BACITRACIN 15 GM TUBE TOPICAL OINTMENT TP SCH (09:45)
[2021-06-13] MEDS ORDERED: NAPH,MB-DB/K PH,MBDB POWDER PACKET PO ONE (09:49)
[2021-06-13] MEDS ORDERED: DEXTROSE 50%-WATER - 25 GM/50 ML VIAL IVPUSH PRN (11:00)
[2021-06-13] MEDS ORDERED: AMINO ACIDS 4.25%/D5W 1,000 ML IV SCH (11:02)
[2021-06-13] MEDS: DEXTROSE 10%-WATER - 1,000 ML IV SCH (11:05)
[2021-06-13] MEDS ORDERED: POTASSIUM PHOSPHATE 30 MM in SODIUM CHLORIDE 250 ML IVPB ONE (11:06)
[2021-06-13] MEDS ORDERED: [UNRECOGNIZED DRUG - OTHER] IV SCH (16:40)
[2021-06-13] MEDS ORDERED: AMINO ACIDS IV SCH (16:40)
[2021-06-13] MEDS ORDERED: MULTIVIT IV SCH (16:40)
[2021-06-13] MEDS ORDERED: ALBUTEROL SO4 HFA INHALER IH PRN (20:10)
[2021-06-13] MEDS: AMINO ACIDS 4.25%/D5W 1,000 ML IV SCH (21:42)
[2021-06-13] MEDS: MULTIVIT INJ. ADULT COMBO WITH VIT K 1 COMBO 10 ML VIAL IV SCH (21:42)
[2021-06-13] MEDS: ATORVASTATIN CA 20 MG TABLET (FP) PO SCH (22:34)
[2021-06-13] MEDS: CHLORHEXIDINE GLUCONATE 4% CLEANSER FOR DECOLONIZATION TP SCH (22:35)
[2021-06-14] MEDS: DEXTROSE 10%-WATER - 1,000 ML IV SCH ×2 (05:20→22:38)
[2021-06-14 08:00] LABS: HEMATOCRIT 35.4 % (35.4-49); HEMOGLOBIN 10.5 GM/dL (11.7-16.9); MCHC 29.8 g/dl (32.0-35.9); MEAN CELL VOLUME 83.9 fl (80-96); MEAN PLT VOLUME 9.5 fl (7.5-11.1); PLATELET COUNT 127 10^3/uL (134-434); RBC 4.22 M/mm3 (4.00-5.60); RDW 18.9 % (11.9-15.9); WHITE BLOOD COUNT 2.9 K/mm3 (4.0-10.0)
[2021-06-14] MEDS ORDERED: AMINO ACIDS/PROTEIN HYDROLYS 30 ML LIQUID.PKT PO SCH (08:00)
[2021-06-14 08:13] LABS: BLOOD UREA NITROGEN 26.4 mg/dL (7-18)
[2021-06-14 08:16] LABS: CALCIUM 7.7 mg/dL (8.5-10.1); CREATININE 0.7 mg/dL (0.55-1.3); MAGNESIUM 1.7 mg/dL (1.8-2.4); PHOSPHOROUS 2.5 mg/dL (2.5-4.9)
[2021-06-14] MEDS ORDERED: MAGNESIUM SULF 50% (8.12 MEQ/2 ML-1 GM VIAL) IVPB ONE (08:49)
[2021-06-14] MEDS ORDERED: MAGNESIUM OXIDE 400 MG TABLET (FP) PO ONE (09:27)
[2021-06-14] MEDS ORDERED: CALCIUM (OYSTER SHELL) 500 MG TABLET (FP) PO ONE (10:00)
[2021-06-14] MEDS: CARVEDILOL 6.25 MG TABLET (FP) PO SCH ×2 (10:28→22:40)
[2021-06-14] MEDS: AMIODARONE HCL 200 MG TABLET PO SCH (10:28)
[2021-06-14] MEDS: APIXABAN 5 MG TABLET PO SCH ×2 (10:28→22:39)
[2021-06-14] MEDS: NICOTINE 14 MG/24 HOURS TOPICAL PATCH TD SCH (10:29)
[2021-06-14] MEDS: RIFAXIMIN 550 MG TABLET PO SCH ×2 (10:29→22:39)
[2021-06-14] MEDS: SACUBITRIL/VALSARTAN 24 MG-26 MG TABLET PO SCH ×2 (10:29→22:40)
[2021-06-14] MEDS: PANTOPRAZOLE SODIUM 40 MG VIAL IVPUSH SCH (10:49)
[2021-06-14] MEDS: MULTIVIT INJ. ADULT COMBO WITH VIT K 1 COMBO 10 ML VIAL IV SCH (22:38)
[2021-06-14] MEDS: AMINO ACIDS 4.25%/D5W 1,000 ML IV SCH (22:38)
[2021-06-14] MEDS: ATORVASTATIN CA 20 MG TABLET (FP) PO SCH (22:39)
[2021-06-14] MEDS: CHLORHEXIDINE GLUCONATE 4% CLEANSER FOR DECOLONIZATION TP SCH (22:40)
[2021-06-15 07:20] LABS: HEMATOCRIT 32.8 % (35.4-49); MCH 25.1 pg (25.7-33.7); MCHC 30.5 g/dl (32.0-35.9); MEAN CELL VOLUME 82.4 fl (80-96); MEAN PLT VOLUME 9.6 fl (7.5-11.1); PLATELET COUNT 111 10^3/uL (134-434); RBC 3.98 M/mm3 (4.00-5.60); RDW 18.7 % (11.9-15.9); WHITE BLOOD COUNT 5.5 K/mm3 (4.0-10.0)
[2021-06-15 07:35] LABS: CALCIUM 7.8 mg/dL (8.5-10.1)
[2021-06-15 07:36] LABS: BLOOD UREA NITROGEN 23.8 mg/dL (7-18); MAGNESIUM 1.8 mg/dL (1.8-2.4)
[2021-06-15 07:39] LABS: CREATININE 0.7 mg/dL (0.55-1.3); PHOSPHOROUS 1.6 mg/dL (2.5-4.9)
[2021-06-15] MEDS: BACITRACIN 15 GM TUBE TOPICAL OINTMENT TP SCH ×2 (09:57→10:01)
[2021-06-15] MEDS: APIXABAN 5 MG TABLET PO SCH ×2 (10:00→22:28)
[2021-06-15] MEDS: CARVEDILOL 6.25 MG TABLET (FP) PO SCH ×2 (10:00→22:27)
[2021-06-15] MEDS: SACUBITRIL/VALSARTAN 24 MG-26 MG TABLET PO SCH ×2 (10:01→22:27)
[2021-06-15] MEDS: AMIODARONE HCL 200 MG TABLET PO SCH (10:01)
[2021-06-15] MEDS: MULTIVIT INJ. ADULT COMBO WITH VIT K 1 COMBO 10 ML VIAL IV SCH ×2 (10:02→16:57)
[2021-06-15] MEDS: PANTOPRAZOLE SODIUM 40 MG VIAL IVPUSH SCH (10:03)
[2021-06-15] MEDS: NICOTINE 14 MG/24 HOURS TOPICAL PATCH TD SCH (10:03)
[2021-06-15] MEDS: DEXTROSE 10%-WATER - 1,000 ML IV SCH (11:15)
[2021-06-15] MEDS: RIFAXIMIN 550 MG TABLET PO SCH ×2 (11:15→22:27)
[2021-06-15] MEDS: AMINO ACIDS 4.25%/D5W 1,000 ML IV SCH (16:42)
[2021-06-15] MEDS ORDERED: POTASSIUM PHOSPHATE 30 MM in DEXTROSE 5%-WATER - 500 ML IVPB ONE (18:00)
[2021-06-15] MEDS: CHLORHEXIDINE GLUCONATE 4% CLEANSER FOR DECOLONIZATION TP SCH (22:27)
[2021-06-15] MEDS: ATORVASTATIN CA 20 MG TABLET (FP) PO SCH (22:27)
[2021-06-16 07:44] LABS: HEMATOCRIT 32.8 % (35.4-49); HEMOGLOBIN 9.9 GM/dL (11.7-16.9); MCH 25.1 pg (25.7-33.7); MCHC 30.2 g/dl (32.0-35.9); MEAN CELL VOLUME 82.9 fl (80-96); MEAN PLT VOLUME 9.9 fl (7.5-11.1); PLATELET COUNT 107 10^3/uL (134-434); RBC 3.96 M/mm3 (4.00-5.60); RDW 19.1 % (11.9-15.9); WHITE BLOOD COUNT 5.4 K/mm3 (4.0-10.0)
[2021-06-16 07:45] LABS: BLOOD UREA NITROGEN 24.8 mg/dL (7-18); CALCIUM 7.9 mg/dL (8.5-10.1); MAGNESIUM 1.8 mg/dL (1.8-2.4)
[2021-06-16 07:49] LABS: CREATININE 0.7 mg/dL (0.55-1.3); PHOSPHOROUS 2.7 mg/dL (2.5-4.9)
[2021-06-16] MEDS: PANTOPRAZOLE SODIUM 40 MG VIAL IVPUSH SCH (09:50)
[2021-06-16] MEDS: CARVEDILOL 6.25 MG TABLET (FP) PO SCH (09:50)
[2021-06-16] MEDS: BACITRACIN 15 GM TUBE TOPICAL OINTMENT TP SCH (09:50)
[2021-06-16] MEDS: NICOTINE 14 MG/24 HOURS TOPICAL PATCH TD SCH (09:50)
[2021-06-16] MEDS: AMIODARONE HCL 200 MG TABLET PO SCH (09:50)
[2021-06-16] MEDS: SACUBITRIL/VALSARTAN 24 MG-26 MG TABLET PO SCH ×2 (09:51→22:34)
[2021-06-16] MEDS: RIFAXIMIN 550 MG TABLET PO SCH ×2 (09:51→22:35)
[2021-06-16 10:19] LABS: ANISOCYTOSIS 1+; MACROCYTOSIS 0; PLATELET ESTIMATE DECREASED; TEAR DROP CELLS 1+
[2021-06-16] MEDS: MULTIVIT INJ. ADULT COMBO WITH VIT K 1 COMBO 10 ML VIAL IV SCH (16:08)
[2021-06-16] MEDS: AMINO ACIDS 4.25%/D5W 1,000 ML IV SCH (16:38)
[2021-06-16] MEDS: ATORVASTATIN CA 20 MG TABLET (FP) PO SCH (22:34)
[2021-06-16] MEDS: CHLORHEXIDINE GLUCONATE 4% CLEANSER FOR DECOLONIZATION TP SCH (22:34)
[2021-06-17 09:13] LABS: BASO % 0.3 % (0-2.0); EOS % 0.5 % (0-4.5); HEMATOCRIT 34.6 % (35.4-49); HEMOGLOBIN 10.2 GM/dL (11.7-16.9); LYMPH % 20.3 % (8-40); MCH 24.8 pg (25.7-33.7); MCHC 29.5 g/dl (32.0-35.9); MEAN CELL VOLUME 84.2 fl (80-96); MEAN PLT VOLUME 9.5 fl (7.5-11.1); MONO % 28.4 % (3.8-10.2); NEUT % 50.5 % (42.8-82.8); PLATELET COUNT 114 10^3/uL (134-434); RBC 4.11 M/mm3 (4.00-5.60); RDW 19.2 % (11.9-15.9); WHITE BLOOD COUNT 3.3 K/mm3 (4.0-10.0)
[2021-06-17] MEDS: RIFAXIMIN 550 MG TABLET PO SCH ×2 (10:04→22:14)
[2021-06-17] MEDS: SACUBITRIL/VALSARTAN 24 MG-26 MG TABLET PO SCH ×2 (10:04→22:14)
[2021-06-17] MEDS: PANTOPRAZOLE SODIUM 40 MG VIAL IVPUSH SCH (10:05)
[2021-06-17] MEDS: AMINO ACIDS 4.25%/D5W 1,000 ML IV SCH ×2 (10:09→18:19)
[2021-06-17] MEDS: MULTIVIT INJ. ADULT COMBO WITH VIT K 1 COMBO 10 ML VIAL IV SCH (10:09)
[2021-06-17 10:12] LABS: BLOOD UREA NITROGEN 23.6 mg/dL (7-18); CALCIUM 8.7 mg/dL (8.5-10.1)
[2021-06-17 10:15] LABS: CREATININE 0.7 mg/dL (0.55-1.3)
[2021-06-17 10:16] LABS: BILIRUBIN,TOTAL 0.7 mg/dL (0.2-1); TOT PROT 6.1 g/dl (6.4-8.2)
[2021-06-17] MEDS: AMIODARONE HCL 200 MG TABLET PO SCH (10:17)
[2021-06-17] MEDS: BACITRACIN 15 GM TUBE TOPICAL OINTMENT TP SCH (10:17)
[2021-06-17] MEDS: NICOTINE 14 MG/24 HOURS TOPICAL PATCH TD SCH (10:18)
[2021-06-17 12:34] LABS: ANISOCYTOSIS 1+; TARGET CELLS 1+
[2021-06-17 13:27] LABS: ALLENS TEST POSITIVE; ARTERIAL BLD GAS O2 SATURATION 98.7 % (95-98); ARTERIAL BLOOD GAS BASE EXCESS 7.6 mmol/L (-2-2); ARTERIAL BLOOD GAS PO2 151.8 mmHg (80-100); ARTERIAL BLOOD GAS pH 7.334 (7.350-7.450)
[2021-06-17 13:28] LABS: PT'S TEMP 98.4
[2021-06-17 17:14] LABS: ALLENS TEST POSITIVE; ARTERIAL BLD GAS O2 SATURATION 97.6 % (95-98); ARTERIAL BLOOD GAS BASE EXCESS 4.8 mmol/L (-2-2); ARTERIAL BLOOD GAS PO2 114.4 mmHg (80-100); ARTERIAL BLOOD GAS pH 7.302 (7.350-7.450)
[2021-06-17 17:15] LABS: VENT MODE S/T; VENT RATE 16
[2021-06-17] MEDS: CHLORHEXIDINE GLUCONATE 4% CLEANSER FOR DECOLONIZATION TP SCH (22:13)
[2021-06-17] MEDS: CARVEDILOL 6.25 MG TABLET (FP) PO SCH (22:13)
[2021-06-17] MEDS: ATORVASTATIN CA 20 MG TABLET (FP) PO SCH (22:14)
[2021-06-18] MEDS ORDERED: LACTULOSE 20 GM/30 ML UDC (FOR ORAL USE ONLY) PO ONE (04:25)
[2021-06-18] MEDS ORDERED: LACTULOSE 20 GM/30 ML UDC (FOR RECTAL USE ONLY) PR ONE (05:12)
[2021-06-18] MEDS: MULTIVIT INJ. ADULT COMBO WITH VIT K 1 COMBO 10 ML VIAL IV SCH ×2 (05:34→17:10)
[2021-06-18 08:41] LABS: ARTERIAL BLD GAS O2 SATURATION 98.9 % (95-98); ARTERIAL BLOOD GAS BASE EXCESS 5.7 mmol/L (-2-2); ARTERIAL BLOOD GAS PO2 165.6 mmHg (80-100); ARTERIAL BLOOD GAS pH 7.323 (7.350-7.450)
[2021-06-18 08:42] LABS: ALLENS TEST POSITIVE
[2021-06-18 08:43] LABS: VENT MODE BIPAP; VENT RATE 16
[2021-06-18] MEDS: APIXABAN 5 MG TABLET PO SCH ×2 (12:24→21:16)
[2021-06-18] MEDS: AMIODARONE HCL 200 MG TABLET PO SCH (12:43)
[2021-06-18] MEDS: SACUBITRIL/VALSARTAN 24 MG-26 MG TABLET PO SCH ×2 (12:43→21:39)
[2021-06-18] MEDS: RIFAXIMIN 550 MG TABLET PO SCH ×2 (12:44→21:17)
[2021-06-18] MEDS: PANTOPRAZOLE SODIUM 40 MG VIAL IVPUSH SCH (12:44)
[2021-06-18] MEDS: NICOTINE 14 MG/24 HOURS TOPICAL PATCH TD SCH (12:44)
[2021-06-18 13:41] LABS: HEMATOCRIT 34.1 % (35.4-49); HEMOGLOBIN 10.3 GM/dL (11.7-16.9); MCH 25.5 pg (25.7-33.7); MCHC 30.3 g/dl (32.0-35.9); MEAN CELL VOLUME 84.3 fl (80-96); MEAN PLT VOLUME 9.1 fl (7.5-11.1); PLATELET COUNT 119 10^3/uL (134-434); RBC 4.05 M/mm3 (4.00-5.60); RDW 18.7 % (11.9-15.9); WHITE BLOOD COUNT 2.8 K/mm3 (4.0-10.0)
[2021-06-18 13:56] LABS: VENOUS BASE EXCESS 1.4 mmol/L (-2-2); VENOUS O2 SATURATION 91.3 % (70-80); VENOUS PCO2 56.9 mmHg (38-52); VENOUS PH 7.317 (7.310-7.410)
[2021-06-18 14:06] LABS: ALBUMIN 2.3 g/dl (3.4-5.0); BLOOD UREA NITROGEN 24.1 mg/dL (7-18); CALCIUM 8.4 mg/dL (8.5-10.1); MAGNESIUM 1.8 mg/dL (1.8-2.4)
[2021-06-18 14:09] LABS: CREATININE 0.7 mg/dL (0.55-1.3); PHOSPHOROUS 2.5 mg/dL (2.5-4.9)
[2021-06-18 14:10] LABS: BILIRUBIN,TOTAL 0.8 mg/dL (0.2-1); TOT PROT 6.8 g/dl (6.4-8.2)
[2021-06-18] MEDS: BACITRACIN 15 GM TUBE TOPICAL OINTMENT TP SCH (15:17)
[2021-06-18 15:39] LABS: ARTERIAL BLD GAS O2 SATURATION 84.9 % (95-98); ARTERIAL BLOOD GAS BASE EXCESS 0.2 mmol/L (-2-2); ARTERIAL BLOOD GAS PO2 54.7 mmHg (80-100); ARTERIAL BLOOD GAS pH 7.307 (7.350-7.450)
[2021-06-18 15:40] LABS: ALLENS TEST POSITIVE
[2021-06-18] MEDS: FUROSEMIDE 40 MG TABLET (FP) PO SCH (19:01)
[2021-06-18] MEDS: ATORVASTATIN CA 20 MG TABLET (FP) PO SCH (21:17)
[2021-06-18] MEDS: CHLORHEXIDINE GLUCONATE 4% CLEANSER FOR DECOLONIZATION TP SCH (21:46)
[2021-06-19 07:34] LABS: HEMATOCRIT 30.1 % (35.4-49); HEMOGLOBIN 9.5 GM/dL (11.7-16.9); MCH 25.9 pg (25.7-33.7); MCHC 31.6 g/dl (32.0-35.9); MEAN CELL VOLUME 81.7 fl (80-96); MEAN PLT VOLUME 9.6 fl (7.5-11.1); PLATELET COUNT 121 10^3/uL (134-434); RBC 3.68 M/mm3 (4.00-5.60); RDW 18.9 % (11.9-15.9); WHITE BLOOD COUNT 5.7 K/mm3 (4.0-10.0)
[2021-06-19 08:10] LABS: CALCIUM 8.4 mg/dL (8.5-10.1)
[2021-06-19 08:11] LABS: ALBUMIN 2.2 g/dl (3.4-5.0); BILIRUBIN,TOTAL 0.6 mg/dL (0.2-1); BLOOD UREA NITROGEN 22.3 mg/dL (7-18); MAGNESIUM 1.7 mg/dL (1.8-2.4); PHOSPHOROUS 1.9 mg/dL (2.5-4.9)
[2021-06-19 08:13] LABS: CREATININE 0.6 mg/dL (0.55-1.3); TOT PROT 6.2 g/dl (6.4-8.2)
[2021-06-19] MEDS ORDERED: SODIUM PHOSPHATE - 30 MM in DEXTROSE 5%-WATER - 500 ML IVPB ONE (11:39)
[2021-06-19] MEDS ORDERED: MAGNESIUM SULF 50% (8.12 MEQ/2 ML-1 GM VIAL) IVPB ONE (11:39)
[2021-06-19] MEDS: PANTOPRAZOLE SODIUM 40 MG VIAL IVPUSH SCH (11:46)
[2021-06-19] MEDS: SACUBITRIL/VALSARTAN 24 MG-26 MG TABLET PO SCH ×2 (11:46→21:52)
[2021-06-19] MEDS: APIXABAN 5 MG TABLET PO SCH ×2 (11:46→21:54)
[2021-06-19] MEDS: RIFAXIMIN 550 MG TABLET PO SCH ×2 (11:46→21:52)
[2021-06-19] MEDS: AMIODARONE HCL 200 MG TABLET PO SCH (11:46)
[2021-06-19] MEDS: FUROSEMIDE 40 MG TABLET (FP) PO SCH (11:46)
[2021-06-19] MEDS: BACITRACIN 15 GM TUBE TOPICAL OINTMENT TP SCH (11:47)
[2021-06-19] MEDS: MULTIVIT INJ. ADULT COMBO WITH VIT K 1 COMBO 10 ML VIAL IV SCH (11:47)
[2021-06-19] MEDS: NICOTINE 14 MG/24 HOURS TOPICAL PATCH TD SCH (11:47)
[2021-06-19] MEDS: ATORVASTATIN CA 20 MG TABLET (FP) PO SCH (21:52)
[2021-06-19] MEDS: CHLORHEXIDINE GLUCONATE 4% CLEANSER FOR DECOLONIZATION TP SCH (21:53)
[2021-06-20 08:44] LABS: HEMATOCRIT 31.3 % (35.4-49); HEMOGLOBIN 9.6 GM/dL (11.7-16.9); MCH 25.1 pg (25.7-33.7); MCHC 30.7 g/dl (32.0-35.9); MEAN PLT VOLUME 10.1 fl (7.5-11.1); PLATELET COUNT 150 10^3/uL (134-434); RBC 3.81 M/mm3 (4.00-5.60); RDW 19.1 % (11.9-15.9); WHITE BLOOD COUNT 4.2 K/mm3 (4.0-10.0)
[2021-06-20 09:10] LABS: BLOOD UREA NITROGEN 15.7 mg/dL (7-18); CALCIUM 8.2 mg/dL (8.5-10.1); MAGNESIUM 1.8 mg/dL (1.8-2.4)
[2021-06-20 09:13] LABS: PHOSPHOROUS 3.3 mg/dL (2.5-4.9)
[2021-06-20 09:14] LABS: CREATININE 0.7 mg/dL (0.55-1.3)
[2021-06-20] MEDS: MULTIVIT INJ. ADULT COMBO WITH VIT K 1 COMBO 10 ML VIAL IV SCH (10:26)
[2021-06-20] MEDS: PANTOPRAZOLE SODIUM 40 MG VIAL IVPUSH SCH (11:29)
[2021-06-20] MEDS: NICOTINE 14 MG/24 HOURS TOPICAL PATCH TD SCH (11:29)
[2021-06-20] MEDS: RIFAXIMIN 550 MG TABLET PO SCH ×2 (11:30→21:29)
[2021-06-20] MEDS: FUROSEMIDE 40 MG TABLET (FP) PO SCH (11:30)
[2021-06-20] MEDS: SACUBITRIL/VALSARTAN 24 MG-26 MG TABLET PO SCH ×2 (11:30→21:29)
[2021-06-20] MEDS: APIXABAN 5 MG TABLET PO SCH ×2 (11:30→21:30)
[2021-06-20] MEDS: BACITRACIN 15 GM TUBE TOPICAL OINTMENT TP SCH (11:31)
[2021-06-20] MEDS: AMIODARONE HCL 200 MG TABLET PO SCH (11:31)
[2021-06-20] MEDS: ATORVASTATIN CA 20 MG TABLET (FP) PO SCH (21:30)
[2021-06-21] MEDS: CHLORHEXIDINE GLUCONATE 4% CLEANSER FOR DECOLONIZATION TP SCH ×2 (06:46→21:27)
[2021-06-21] MEDS: SACUBITRIL/VALSARTAN 24 MG-26 MG TABLET PO SCH ×2 (09:40→21:27)
[2021-06-21] MEDS: NICOTINE 14 MG/24 HOURS TOPICAL PATCH TD SCH (09:40)
[2021-06-21] MEDS: APIXABAN 5 MG TABLET PO SCH ×2 (09:41→21:27)
[2021-06-21] MEDS: AMIODARONE HCL 200 MG TABLET PO SCH (09:41)
[2021-06-21] MEDS: FUROSEMIDE 40 MG TABLET (FP) PO SCH (09:41)
[2021-06-21] MEDS: PANTOPRAZOLE SODIUM 40 MG VIAL IVPUSH SCH (09:42)
[2021-06-21] MEDS: BACITRACIN 15 GM TUBE TOPICAL OINTMENT TP SCH (09:42)
[2021-06-21 10:52] LABS: BASO % 0.3 % (0-2.0); EOS % 0.8 % (0-4.5); HEMATOCRIT 31.6 % (35.4-49); HEMOGLOBIN 9.7 GM/dL (11.7-16.9); LYMPH % 14.3 % (8-40); MCH 25.5 pg (25.7-33.7); MCHC 30.6 g/dl (32.0-35.9); MEAN CELL VOLUME 83.2 fl (80-96); MONO % 19.8 % (3.8-10.2); NEUT % 64.8 % (42.8-82.8); PLATELET COUNT 141 10^3/uL (134-434); RDW 19.3 % (11.9-15.9); WHITE BLOOD COUNT 4.1 K/mm3 (4.0-10.0)
[2021-06-21 11:19] LABS: CALCIUM 8.2 mg/dL (8.5-10.1)
[2021-06-21 11:20] LABS: BLOOD UREA NITROGEN 12.1 mg/dL (7-18)
[2021-06-21 11:23] LABS: CREATININE 0.8 mg/dL (0.55-1.3)
[2021-06-21] MEDS: ATORVASTATIN CA 20 MG TABLET (FP) PO SCH (21:27)
[2021-06-22 07:44] LABS: HEMATOCRIT 30.2 % (35.4-49); HEMOGLOBIN 9.3 GM/dL (11.7-16.9); MCH 25.4 pg (25.7-33.7); MCHC 30.9 g/dl (32.0-35.9); MEAN CELL VOLUME 82.2 fl (80-96); MEAN PLT VOLUME 9.1 fl (7.5-11.1); PLATELET COUNT 158 10^3/uL (134-434); RBC 3.67 M/mm3 (4.00-5.60); RDW 19.3 % (11.9-15.9); WHITE BLOOD COUNT 3.9 K/mm3 (4.0-10.0)
[2021-06-22 08:20] LABS: BLOOD UREA NITROGEN 10.5 mg/dL (7-18); CALCIUM 8.2 mg/dL (8.5-10.1)
[2021-06-22 08:24] LABS: CREATININE 0.7 mg/dL (0.55-1.3)
[2021-06-22] MEDS: NICOTINE 14 MG/24 HOURS TOPICAL PATCH TD SCH (09:44)
[2021-06-22] MEDS: ASCORBIC ACID 250 MG TABLET (FP) PO SCH (09:44)
[2021-06-22] MEDS: FUROSEMIDE 40 MG TABLET (FP) PO SCH (09:44)
[2021-06-22] MEDS: APIXABAN 5 MG TABLET PO SCH ×2 (09:44→21:50)
[2021-06-22] MEDS: MULTIVITAMINS THER W-MINERALS COMBO TABLET (FP) PO SCH (09:45)
[2021-06-22] MEDS: AMIODARONE HCL 200 MG TABLET PO SCH (09:45)
[2021-06-22] MEDS: BACITRACIN 15 GM TUBE TOPICAL OINTMENT TP SCH (09:45)
[2021-06-22] MEDS: ZINC SULFATE 220 MG CAPSULE (FP) PO SCH (09:46)
[2021-06-22] MEDS: SACUBITRIL/VALSARTAN 24 MG-26 MG TABLET PO SCH ×2 (09:47→21:50)
[2021-06-22] MEDS: PANTOPRAZOLE SODIUM 40 MG VIAL IVPUSH SCH (09:51)
[2021-06-22 10:20] LABS: ANISOCYTOSIS 1+; MACROCYTOSIS 1+; OVALOCYTE 1+; PLATELET ESTIMATE NORMAL
[2021-06-22] MEDS: PANTOPRAZOLE 40 MG TABLET PO SCH (13:52)
[2021-06-22] MEDS: CHLORHEXIDINE GLUCONATE 4% CLEANSER FOR DECOLONIZATION TP SCH (21:50)
[2021-06-22] MEDS: ATORVASTATIN CA 20 MG TABLET (FP) PO SCH (21:50)
[2021-06-23 08:08] LABS: HEMATOCRIT 29.4 % (35.4-49); HEMOGLOBIN 9.2 GM/dL (11.7-16.9); MCH 25.6 pg (25.7-33.7); MCHC 31.2 g/dl (32.0-35.9); PLATELET COUNT 193 10^3/uL (134-434); RBC 3.58 M/mm3 (4.00-5.60); WHITE BLOOD COUNT 3.7 K/mm3 (4.0-10.0)
[2021-06-23 09:02] LABS: ALBUMIN 2.2 g/dl (3.4-5.0)
[2021-06-23 09:03] LABS: BLOOD UREA NITROGEN 9.3 mg/dL (7-18); CALCIUM 7.8 mg/dL (8.5-10.1)
[2021-06-23 09:04] LABS: MAGNESIUM 1.7 mg/dL (1.8-2.4)
[2021-06-23 09:05] LABS: CREATININE 0.7 mg/dL (0.55-1.3); PHOSPHOROUS 2.9 mg/dL (2.5-4.9)
[2021-06-23 09:07] LABS: BILIRUBIN,TOTAL 0.8 mg/dL (0.2-1)
[2021-06-23] MEDS: FUROSEMIDE 40 MG TABLET (FP) PO SCH (10:16)
[2021-06-23] MEDS: SACUBITRIL/VALSARTAN 24 MG-26 MG TABLET PO SCH (10:16)
[2021-06-23] MEDS: ASCORBIC ACID 250 MG TABLET (FP) PO SCH (10:16)
[2021-06-23] MEDS: APIXABAN 5 MG TABLET PO SCH (10:16)
[2021-06-23] MEDS: MULTIVITAMINS THER W-MINERALS COMBO TABLET (FP) PO SCH (10:17)
[2021-06-23] MEDS: ZINC SULFATE 220 MG CAPSULE (FP) PO SCH (10:17)
[2021-06-23] MEDS: AMIODARONE HCL 200 MG TABLET PO SCH (10:17)
[2021-06-23] MEDS: BACITRACIN 15 GM TUBE TOPICAL OINTMENT TP SCH (10:17)
[2021-06-23] MEDS: NICOTINE 14 MG/24 HOURS TOPICAL PATCH TD SCH (10:17)
[2021-06-23] MEDS: PANTOPRAZOLE 40 MG TABLET PO SCH (10:17)
[2021-06-23] MEDS ORDERED: MAGNESIUM 2GM/50ML STERILE WATER IVPB IVPB ONE (11:30)
[2021-06-23] MEDS ORDERED: MAGNESIUM OXIDE 400 MG TABLET (FP) PO ONE (12:13)
[2021-06-23 15:48] VITALS: BP 124/71; PULSE 85; TEMP 98.4
== END 2021-06-23 17:30 | DRG 207 ==
LOC: JER 15:07 → JERBED 19:04 → J4S 06-03 23:49 → JICU 06-04 08:50 → J4W 06-13 19:48
PROVIDERS: ADMIT Internal Medicine; ATTEND Internal Medicine
PROC: 5A1955Z Respiratory Ventilation, Greater than 96 Consecutive Hours (ICD-10-PCS; principal; 2021-06-04)
PROC: 0BH17EZ Insertion of Endotracheal Airway into Trachea, Via Natural or Artificial Opening (ICD-10-PCS; 2021-06-04)
PROC: 05HM33Z Insertion of Infusion Device into Right Internal Jugular Vein, Percutaneous Approach (ICD-10-PCS; 2021-06-04)
PROC: B543ZZA Ultrasonography of Right Jugular Veins, Guidance (ICD-10-PCS; 2021-06-04)
DX: J18.9 Pneumonia, unspecified organism (principal); I50.23 Acute on chronic systolic (congestive) heart failure; J96.02 Acute respiratory failure with hypercapnia; A41.9 Sepsis, unspecified organism; J96.01 Acute respiratory failure with hypoxia; G92.9 Unspecified toxic encephalopathy; J44.1 Chronic obstructive pulmonary disease with (acute) exacerbation; E46 Unspecified protein-calorie malnutrition; N17.9 Acute kidney failure, unspecified; E87.3 Alkalosis; E87.2 Acidosis; E72.20 Disorder of urea cycle metabolism, unspecified; I48.20 Chronic atrial fibrillation, unspecified; I47.2 Ventricular tachycardia; E87.0 Hyperosmolality and hypernatremia; J44.0 Chronic obstructive pulmonary disease with (acute) lower respiratory infection; I42.9 Cardiomyopathy, unspecified; I47.1 Supraventricular tachycardia; I11.0 Hypertensive heart disease with heart failure; F19.10 Other psychoactive substance abuse, uncomplicated; F17.210 Nicotine dependence, cigarettes, uncomplicated; R60.1 Generalized edema; E16.2 Hypoglycemia, unspecified; F03.90 Unspecified dementia, unspecified severity, without behavioral disturbance, psychotic disturbance, mood disturbance, and anxiety; R91.8 Other nonspecific abnormal finding of lung field; E83.42 Hypomagnesemia; I27.20 Pulmonary hypertension, unspecified; R31.9 Hematuria, unspecified; E83.39 Other disorders of phosphorus metabolism
CPT/HCPCS: 31500; 36415; 36600; 70450-TC; 71045-TC-FY; 74230-TC-FY; 76856-TC; 80048; 80053; 80061; 81003; 82140; 82550; 82570; 82607; 82728; 82803; 82962; 83036; 83615; 83735; 83880; 84100; 84156; 84300; 84439; 84443; 84484; 84540; 84550; 85025; 85027; 85379; 87086; 87804; 92611-GN; 93005; 93010; 93306-TC; 93971; 94002; 94660; 94761; 97116-GP; 97162-GP; 99285-25; C9803; U0003; U0005

== ENCOUNTER 2021-07-10 15:38 | Inpatient (IN) | payer OTHER ==
[2021-07-10] MEDS ORDERED: FUROSEMIDE 40 MG/4 ML INJECTABLE VIAL IVPUSH ONE (16:16)
[2021-07-10] MEDS ORDERED: ALBUTEROL SO4 2.5/IPRATROPIUM 0.5 INH SOL 3 ML VIAL.NEB. NEB SCH (16:30)
[2021-07-10] MEDS ORDERED: FUROSEMIDE 40 MG/4 ML INJECTABLE VIAL ONE (16:38)
[2021-07-10] MEDS ORDERED: HALOPERIDOL LACTATE 5 MG/ML IV ONE (17:44)
[2021-07-10] MEDS ORDERED: HALOPERIDOL LACTATE 5 MG/ML ONE (17:48)
[2021-07-10 17:58] LABS: BASO % 0.2 % (0-2.0); EOS % 0.6 % (0-4.5); HEMATOCRIT 27.7 % (35.4-49); HEMOGLOBIN 8.7 GM/dL (11.7-16.9); LYMPH % 10.2 % (8-40); MCH 25.8 pg (25.7-33.7); MCHC 31.5 g/dl (32.0-35.9); MEAN CELL VOLUME 81.7 fl (80-96); MEAN PLT VOLUME 8.4 fl (7.5-11.1); MONO % 17.6 % (3.8-10.2); NEUT % 71.4 % (42.8-82.8); PLATELET COUNT 252 10^3/uL (134-434); RBC 3.38 M/mm3 (4.00-5.60); RDW 19.6 % (11.9-15.9); WHITE BLOOD COUNT 5.5 K/mm3 (4.0-10.0)
[2021-07-10 17:59] LABS: INR 2.04 (0.83-1.09); PROTHROMBIN TIME (PATIENT) 23.6 SEC (9.7-13.0)
[2021-07-10 18:02] LABS: ACTIVATED PTT 37.1 SECONDS (25.2-36.5)
[2021-07-10 18:14] LABS: CALCIUM 8.3 mg/dL (8.5-10.1)
[2021-07-10 18:15] LABS: ALBUMIN 2.6 g/dl (3.4-5.0); BLOOD UREA NITROGEN 20.8 mg/dL (7-18)
[2021-07-10 18:18] LABS: CREATININE 1.2 mg/dL (0.55-1.3)
[2021-07-10 18:20] LABS: TOT PROT 7.5 g/dl (6.4-8.2)
[2021-07-10 18:23] LABS: N-TERMINAL BNP 13969.4 pg/ml (5-450)
[2021-07-10 18:24] LABS: LACTIC ACID 2.5 mmol/L (0.4-2.0)
[2021-07-10] MEDS ORDERED: REMDESIVIR 200 MG in SODIUM CHLORIDE 250 ML IVPB ONE (18:47)
[2021-07-10] MEDS ORDERED: DEXAMETHASONE SOD PHOSPHATE 4 MG/1 ML VIAL IVPUSH ONE (18:47)
[2021-07-10] MEDS ORDERED: DEXAMETHASONE SOD PHOSPHATE 10 MG/1 ML VIAL ONE (20:07)
[2021-07-10] MEDS ORDERED: ACETAMINOPHEN 325 MG TABLET (FP) PO PRN (20:54)
[2021-07-10] MEDS ORDERED: POLYETHYLENE GLYCOL (HEALTHYLAX) 3350 17 GM PACKET PO PRN (20:54)
[2021-07-10 21:36] LABS: ARTERIAL BLD GAS O2 SATURATION 98.7 % (95-98); ARTERIAL BLOOD GAS BASE EXCESS 5.4 mmol/L (-2-2); ARTERIAL BLOOD GAS PO2 141.2 mmHg (80-100); ARTERIAL BLOOD GAS pH 7.372 (7.350-7.450)
[2021-07-11 02:38] LABS: MAGNESIUM 1.6 mg/dL (1.8-2.4)
[2021-07-11 04:02] LABS: VENOUS BASE EXCESS -0.6 mmol/L (-2-2); VENOUS O2 SATURATION 70.3 % (70-80); VENOUS PCO2 61.6 mmHg (38-52); VENOUS PH 7.275 (7.310-7.410)
[2021-07-11] MEDS ORDERED: ALBUTEROL SO4 HFA INHALER IH PRN (05:35)
[2021-07-11] MEDS ORDERED: FUROSEMIDE 40 MG TABLET (FP) ONE (08:15)
[2021-07-11] MEDS ORDERED: ASCORBIC ACID 500 MG TABLET (FP) ONE (08:15)
[2021-07-11] MEDS ORDERED: AMIODARONE HCL 200 MG TABLET ONE (08:16)
[2021-07-11] MEDS ORDERED: DOCUSATE SODIUM 100 MG CAPSULE (FP) PO ONE (08:16)
[2021-07-11] MEDS ORDERED: APIXABAN 5 MG TABLET ONE (08:16)
[2021-07-11] MEDS: ZINC OXIDE/PANTHENOL/VITAMIN E 56 GM TUBE TP SCH (09:06)
[2021-07-11] MEDS: ASCORBIC ACID 500 MG TABLET (FP) PO SCH (09:07)
[2021-07-11] MEDS: POLYETHYLENE GLYCOL (HEALTHYLAX) 3350 17 GM PACKET PO SCH (09:07)
[2021-07-11] MEDS: AMIODARONE HCL 200 MG TABLET PO SCH (09:07)
[2021-07-11] MEDS: APIXABAN 5 MG TABLET PO SCH ×2 (09:07→22:30)
[2021-07-11] MEDS ORDERED: DOCUSATE SODIUM 100 MG CAPSULE (FP) PO SCH (10:00)
[2021-07-11] MEDS ORDERED: FUROSEMIDE 40 MG TABLET (FP) PO SCH ×2 (10:00)
[2021-07-11 10:40] LABS: BASO % 0.1 % (0-2.0); HEMOGLOBIN 9.5 GM/dL (11.7-16.9); LYMPH % 5.6 % (8-40); NEUT % 86.3 % (42.8-82.8)
[2021-07-11] MEDS: SACUBITRIL/VALSARTAN 24 MG-26 MG TABLET PO SCH ×2 (11:00→22:30)
[2021-07-11] MEDS: PANTOPRAZOLE 20 MG TABLET PO SCH (11:00)
[2021-07-11] MEDS: RIFAXIMIN 550 MG TABLET PO SCH ×2 (11:00→22:31)
[2021-07-11 11:07] LABS: CALCIUM 8.8 mg/dL (8.5-10.1)
[2021-07-11 11:08] LABS: BLOOD UREA NITROGEN 23.7 mg/dL (7-18)
[2021-07-11 11:11] LABS: CREATININE 1.3 mg/dL (0.55-1.3)
[2021-07-11 11:39] LABS: ANISOCYTOSIS 2+; MACROCYTOSIS 0; OVALOCYTE 1+; PLATELET ESTIMATE NORMAL; TARGET CELLS 2+; TEAR DROP CELLS 1+
[2021-07-11 12:15] LABS: MAGNESIUM 1.8 mg/dL (1.8-2.4)
[2021-07-11 12:17] LABS: HEMATOCRIT 29.5 % (35.4-49); MCH 26.6 pg (25.7-33.7); MCHC 32.2 g/dl (32.0-35.9); MEAN CELL VOLUME 82.4 fl (80-96); MEAN PLT VOLUME 8.6 fl (7.5-11.1); PLATELET COUNT 282 10^3/uL (134-434); RBC 3.58 M/mm3 (4.00-5.60); RDW 19.9 % (11.9-15.9); RETICULOCYTES 2.45 % (0.5-1.5); WHITE BLOOD COUNT 4.2 K/mm3 (4.0-10.0)
[2021-07-11] MEDS ORDERED: FUROSEMIDE 40 MG/4 ML INJECTABLE VIAL ONE ×2 (13:40→22:19)
[2021-07-11] MEDS: FUROSEMIDE 40 MG/4 ML INJECTABLE VIAL IVPUSH SCH (14:51)
[2021-07-11 16:24] LABS: ARTERIAL BLOOD GAS BASE EXCESS 3.4 mmol/L (-2-2); ARTERIAL BLOOD GAS PO2 63.7 mmHg (80-100); ARTERIAL BLOOD GAS pH 7.286 (7.350-7.450)
[2021-07-11 16:26] LABS: ALLENS TEST POSITIVE
[2021-07-11 16:27] LABS: VENT MODE S/T; VENT RATE 20
[2021-07-11] MEDS ORDERED: FERRIC CARBOXYMALTOSE 750 MG in SODIUM CHLORIDE 250 ML IVPB ONE (18:18)
[2021-07-11 18:55] LABS: CALCIUM 8.7 mg/dL (8.5-10.1)
[2021-07-11 18:56] LABS: BLOOD UREA NITROGEN 27.6 mg/dL (7-18)
[2021-07-11 18:59] LABS: CREATININE 1.2 mg/dL (0.55-1.3)
[2021-07-11] MEDS ORDERED: ALBUTEROL SO4 0.083% IH SOL 2.5 MG/3 ML VIAL.NEB. NEB ONE (20:39)
[2021-07-11 21:15] LABS: EPI CELLS 10 /uL (0-25.1); HYALINE CASTS 3 /uL (0-3.1); URINE APPEARANCE CLEAR; URINE BACTERIA 3321 /uL (0-1359); URINE BILIRUBIN NEGATIVE (NEGATIVE); URINE COLOR YELLOW; URINE GLUCOSE (UA) NEGATIVE (NEGATIVE); URINE KETONE NEGATIVE (NEGATIVE); URINE LEUK ESTERASE 1+ (NEGATIVE); URINE NITRITE POSITIVE (NEGATIVE); URINE PROTEIN 1+ (NEGATIVE); URINE RBC 19 /uL (0-23.9); URINE WBC 9 /uL (0-25.8)
[2021-07-11] MEDS ORDERED: FUROSEMIDE 40 MG/4 ML INJECTABLE VIAL IVPUSH ONE (22:15)
[2021-07-11] MEDS: BUDESONIDE/FORMETEROL FUMARATE 160/4.5 mcg INHALER IH SCH (22:31)
[2021-07-11] MEDS: ATORVASTATIN CA 20 MG TABLET (FP) PO SCH (22:31)
[2021-07-11 23:06] LABS: ARTERIAL BLD GAS O2 SATURATION 97.4 % (95-98); ARTERIAL BLOOD GAS BASE EXCESS 7.4 mmol/L (-2-2); ARTERIAL BLOOD GAS PO2 105.8 mmHg (80-100); ARTERIAL BLOOD GAS pH 7.343 (7.350-7.450)
[2021-07-11 23:07] LABS: ALLENS TEST POSITIVE
[2021-07-11 23:08] LABS: VENT MODE S/T; VENT RATE 20
[2021-07-12] MEDS: FUROSEMIDE 40 MG/4 ML INJECTABLE VIAL IVPUSH SCH ×2 (06:26→15:04)
[2021-07-12 08:01] LABS: BASO % 0.1 % (0-2.0); HEMOGLOBIN 8.1 GM/dL (11.7-16.9); LYMPH % 4.6 % (8-40); MCH 25.5 pg (25.7-33.7); MCHC 30.1 g/dl (32.0-35.9); MEAN CELL VOLUME 84.5 fl (80-96); MEAN PLT VOLUME 8.3 fl (7.5-11.1); MONO % 11.4 % (3.8-10.2); NEUT % 83.9 % (42.8-82.8); PLATELET COUNT 246 10^3/uL (134-434); RDW 20.1 % (11.9-15.9); WHITE BLOOD COUNT 8.4 K/mm3 (4.0-10.0)
[2021-07-12 08:09] LABS: BLOOD UREA NITROGEN 27.5 mg/dL (7-18); CALCIUM 8.3 mg/dL (8.5-10.1)
[2021-07-12 08:11] LABS: MAGNESIUM 1.8 mg/dL (1.8-2.4)
[2021-07-12 08:12] LABS: CREATININE 1.1 mg/dL (0.55-1.3)
[2021-07-12 08:15] LABS: PHOSPHOROUS 4.3 mg/dL (2.5-4.9)
[2021-07-12] MEDS: SACUBITRIL/VALSARTAN 24 MG-26 MG TABLET PO SCH ×2 (11:04→21:26)
[2021-07-12] MEDS: AMIODARONE HCL 200 MG TABLET PO SCH (11:04)
[2021-07-12] MEDS: PANTOPRAZOLE 20 MG TABLET PO SCH (11:04)
[2021-07-12] MEDS: ZINC OXIDE/PANTHENOL/VITAMIN E 56 GM TUBE TP SCH (11:04)
[2021-07-12] MEDS: POLYETHYLENE GLYCOL (HEALTHYLAX) 3350 17 GM PACKET PO SCH (11:05)
[2021-07-12] MEDS: BUDESONIDE/FORMETEROL FUMARATE 160/4.5 mcg INHALER IH SCH ×2 (11:05→21:27)
[2021-07-12] MEDS: RIFAXIMIN 550 MG TABLET PO SCH ×2 (11:05→21:26)
[2021-07-12] MEDS: ASCORBIC ACID 500 MG TABLET (FP) PO SCH (11:05)
[2021-07-12] MEDS: APIXABAN 5 MG TABLET PO SCH ×2 (11:05→21:27)
[2021-07-12] MEDS: CARVEDILOL 3.125 MG TABLET (FP) PO SCH ×2 (15:04→21:26)
[2021-07-12] MEDS: ATORVASTATIN CA 20 MG TABLET (FP) PO SCH (21:27)
[2021-07-13] MEDS: FUROSEMIDE 40 MG/4 ML INJECTABLE VIAL IVPUSH SCH ×2 (06:57→14:15)
[2021-07-13 07:26] LABS: BASO % 0.2 % (0-2.0); EOS % 0.5 % (0-4.5); HEMATOCRIT 26.8 % (35.4-49); HEMOGLOBIN 8.1 GM/dL (11.7-16.9); LYMPH % 9.4 % (8-40); MCH 25.5 pg (25.7-33.7); MCHC 30.4 g/dl (32.0-35.9); MEAN PLT VOLUME 8.2 fl (7.5-11.1); MONO % 15.2 % (3.8-10.2); NEUT % 74.7 % (42.8-82.8); PLATELET COUNT 233 10^3/uL (134-434); RBC 3.19 M/mm3 (4.00-5.60); RDW 20.2 % (11.9-15.9); WHITE BLOOD COUNT 5.1 K/mm3 (4.0-10.0)
[2021-07-13 07:39] LABS: CALCIUM 8.3 mg/dL (8.5-10.1)
[2021-07-13 07:40] LABS: ALBUMIN 2.6 g/dl (3.4-5.0); BLOOD UREA NITROGEN 29.2 mg/dL (7-18); MAGNESIUM 1.6 mg/dL (1.8-2.4)
[2021-07-13 07:43] LABS: CREATININE 1.3 mg/dL (0.55-1.3)
[2021-07-13 07:44] LABS: TOT PROT 7.3 g/dl (6.4-8.2)
[2021-07-13] MEDS: APIXABAN 5 MG TABLET PO SCH ×2 (10:42→22:50)
[2021-07-13] MEDS: ASCORBIC ACID 500 MG TABLET (FP) PO SCH (10:42)
[2021-07-13] MEDS: ZINC OXIDE/PANTHENOL/VITAMIN E 56 GM TUBE TP SCH (10:42)
[2021-07-13] MEDS: PANTOPRAZOLE 20 MG TABLET PO SCH (10:42)
[2021-07-13] MEDS: CARVEDILOL 3.125 MG TABLET (FP) PO SCH ×2 (10:42→22:50)
[2021-07-13] MEDS: AMIODARONE HCL 200 MG TABLET PO SCH (10:42)
[2021-07-13] MEDS: BUDESONIDE/FORMETEROL FUMARATE 160/4.5 mcg INHALER IH SCH ×2 (10:43→22:50)
[2021-07-13] MEDS: SACUBITRIL/VALSARTAN 24 MG-26 MG TABLET PO SCH ×2 (10:44→22:50)
[2021-07-13] MEDS: RIFAXIMIN 550 MG TABLET PO SCH ×2 (10:44→22:50)
[2021-07-13] MEDS: POLYETHYLENE GLYCOL (HEALTHYLAX) 3350 17 GM PACKET PO SCH (10:44)
[2021-07-13] MEDS ORDERED: MAGNESIUM SULF 50% (8.12 MEQ/2 ML-1 GM VIAL) IVPB ONE (18:45)
[2021-07-13] MEDS: ATORVASTATIN CA 20 MG TABLET (FP) PO SCH (22:50)
[2021-07-14] MEDS: FUROSEMIDE 40 MG/4 ML INJECTABLE VIAL IVPUSH SCH ×2 (06:50→14:59)
[2021-07-14 07:30] LABS: BASO % 0.3 % (0-2.0); EOS % 1.1 % (0-4.5); HEMATOCRIT 28.3 % (35.4-49); HEMOGLOBIN 8.4 GM/dL (11.7-16.9); LYMPH % 10.5 % (8-40); MCH 25.2 pg (25.7-33.7); MCHC 29.6 g/dl (32.0-35.9); MEAN CELL VOLUME 85.2 fl (80-96); MONO % 18.9 % (3.8-10.2); NEUT % 69.2 % (42.8-82.8); PLATELET COUNT 212 10^3/uL (134-434); RBC 3.33 M/mm3 (4.00-5.60); RDW 19.9 % (11.9-15.9); WHITE BLOOD COUNT 3.8 K/mm3 (4.0-10.0)
[2021-07-14 07:44] LABS: ALBUMIN 2.7 g/dl (3.4-5.0); CALCIUM 8.1 mg/dL (8.5-10.1); MAGNESIUM 2.2 mg/dL (1.8-2.4)
[2021-07-14 07:45] LABS: BLOOD UREA NITROGEN 25.5 mg/dL (7-18)
[2021-07-14 07:47] LABS: CREATININE 1.2 mg/dL (0.55-1.3); PHOSPHOROUS 2.7 mg/dL (2.5-4.9)
[2021-07-14 07:49] LABS: BILIRUBIN,TOTAL 0.8 mg/dL (0.2-1); TOT PROT 7.5 g/dl (6.4-8.2)
[2021-07-14] MEDS: POLYETHYLENE GLYCOL (HEALTHYLAX) 3350 17 GM PACKET PO SCH (10:01)
[2021-07-14] MEDS: CARVEDILOL 3.125 MG TABLET (FP) PO SCH ×2 (10:01→21:27)
[2021-07-14] MEDS: ASCORBIC ACID 500 MG TABLET (FP) PO SCH (10:01)
[2021-07-14] MEDS: PANTOPRAZOLE 20 MG TABLET PO SCH (10:01)
[2021-07-14] MEDS: AMIODARONE HCL 200 MG TABLET PO SCH (10:01)
[2021-07-14] MEDS: APIXABAN 5 MG TABLET PO SCH ×2 (10:01→21:27)
[2021-07-14] MEDS: RIFAXIMIN 550 MG TABLET PO SCH ×2 (10:02→21:26)
[2021-07-14] MEDS: SACUBITRIL/VALSARTAN 24 MG-26 MG TABLET PO SCH ×2 (10:02→21:27)
[2021-07-14] MEDS: BUDESONIDE/FORMETEROL FUMARATE 160/4.5 mcg INHALER IH SCH ×2 (10:03→21:27)
[2021-07-14] MEDS: ZINC OXIDE/PANTHENOL/VITAMIN E 56 GM TUBE TP SCH ×2 (14:59→15:10)
[2021-07-14 20:07] LABS: GLIADIN ANTIBODY IGA >150 units (0-19); GLIADIN ANTIBODY IGG 6 units (0-19); TRANSGLUTAMINASE IGG 8 U/mL (0-5)
[2021-07-14] MEDS: ATORVASTATIN CA 20 MG TABLET (FP) PO SCH (21:27)
[2021-07-14] MEDS ORDERED: ASCORBIC ACID 250 MG TABLET (FP) PO SCH (22:00)
[2021-07-15] MEDS: FUROSEMIDE 40 MG/4 ML INJECTABLE VIAL IVPUSH SCH ×2 (06:22→16:00)
[2021-07-15] MEDS: CARVEDILOL 3.125 MG TABLET (FP) PO SCH ×2 (10:13→21:37)
[2021-07-15] MEDS: ZINC SULFATE 220 MG CAPSULE (FP) PO SCH (10:13)
[2021-07-15] MEDS: POLYETHYLENE GLYCOL (HEALTHYLAX) 3350 17 GM PACKET PO SCH (10:13)
[2021-07-15] MEDS: ASCORBIC ACID 500 MG TABLET (FP) PO SCH (10:14)
[2021-07-15] MEDS: AMIODARONE HCL 200 MG TABLET PO SCH (10:14)
[2021-07-15] MEDS: PANTOPRAZOLE 20 MG TABLET PO SCH (10:14)
[2021-07-15] MEDS: APIXABAN 5 MG TABLET PO SCH ×2 (10:14→21:37)
[2021-07-15] MEDS: MULTIVITAMINS (DAILY MVI) TABLET (FP) PO SCH (10:14)
[2021-07-15] MEDS: SACUBITRIL/VALSARTAN 24 MG-26 MG TABLET PO SCH ×2 (10:15→21:37)
[2021-07-15] MEDS: ZINC OXIDE/PANTHENOL/VITAMIN E 56 GM TUBE TP SCH (10:15)
[2021-07-15] MEDS: BUDESONIDE/FORMETEROL FUMARATE 160/4.5 mcg INHALER IH SCH ×2 (10:15→21:38)
[2021-07-15] MEDS: RIFAXIMIN 550 MG TABLET PO SCH ×2 (10:16→21:40)
[2021-07-15 12:47] LABS: VENOUS BASE EXCESS 10.7 mmol/L (-2-2); VENOUS O2 SATURATION 46.9 % (70-80)
[2021-07-15 12:50] LABS: BASO % 0.2 % (0-2.0); EOS % 1.6 % (0-4.5); HEMATOCRIT 30.7 % (35.4-49); HEMOGLOBIN 9.4 GM/dL (11.7-16.9); LYMPH % 10.1 % (8-40); MCH 25.7 pg (25.7-33.7); MCHC 30.5 g/dl (32.0-35.9); MEAN CELL VOLUME 84.5 fl (80-96); MEAN PLT VOLUME 7.4 fl (7.5-11.1); MONO % 15.2 % (3.8-10.2); NEUT % 72.9 % (42.8-82.8); PLATELET COUNT 204 10^3/uL (134-434); RBC 3.63 M/mm3 (4.00-5.60); RDW 20.2 % (11.9-15.9); VENOUS PCO2 82.7 mmHg (38-52); WHITE BLOOD COUNT 3.7 K/mm3 (4.0-10.0)
[2021-07-15 12:51] LABS: VENOUS PH 7.308 (7.310-7.410)
[2021-07-15 13:09] LABS: BLOOD UREA NITROGEN 24.9 mg/dL (7-18); CALCIUM 8.7 mg/dL (8.5-10.1); MAGNESIUM 2.2 mg/dL (1.8-2.4)
[2021-07-15 13:10] LABS: ALBUMIN 2.8 g/dl (3.4-5.0)
[2021-07-15 13:12] LABS: CREATININE 0.9 mg/dL (0.55-1.3); PHOSPHOROUS 1.9 mg/dL (2.5-4.9)
[2021-07-15 13:13] LABS: TOT PROT 7.8 g/dl (6.4-8.2)
[2021-07-15 18:41] LABS: ARTERIAL BLD GAS O2 SATURATION 94.6 % (95-98); ARTERIAL BLOOD GAS BASE EXCESS 13.5 mmol/L (-2-2); ARTERIAL BLOOD GAS PO2 79.7 mmHg (80-100); ARTERIAL BLOOD GAS pH 7.351 (7.350-7.450)
[2021-07-15 18:42] LABS: ALLENS TEST POSITIVE
[2021-07-15 18:43] LABS: VENT MODE ST; VENT RATE 20
[2021-07-15 20:49] LABS: ALLENS TEST POSITIVE; ARTERIAL BLD GAS O2 SATURATION 96.4 % (95-98); ARTERIAL BLOOD GAS BASE EXCESS 13.2 mmol/L (-2-2); ARTERIAL BLOOD GAS PO2 89.1 mmHg (80-100); ARTERIAL BLOOD GAS pH 7.387 (7.350-7.450)
[2021-07-15 20:50] LABS: VENT MODE S/T; VENT RATE 20
[2021-07-15] MEDS: ATORVASTATIN CA 20 MG TABLET (FP) PO SCH (21:37)
[2021-07-16] MEDS: FUROSEMIDE 40 MG/4 ML INJECTABLE VIAL IVPUSH SCH ×2 (05:48→13:33)
[2021-07-16 07:34] LABS: HEMATOCRIT 29.9 % (35.4-49); HEMOGLOBIN 9.3 GM/dL (11.7-16.9); MCH 26.2 pg (25.7-33.7); MCHC 31.2 g/dl (32.0-35.9); MEAN CELL VOLUME 83.9 fl (80-96); PLATELET COUNT 202 10^3/uL (134-434); RBC 3.57 M/mm3 (4.00-5.60); RDW 19.8 % (11.9-15.9)
[2021-07-16 07:39] LABS: ARTERIAL BLD GAS O2 SATURATION 96.7 % (95-98); ARTERIAL BLOOD GAS BASE EXCESS 12.9 mmol/L (-2-2); ARTERIAL BLOOD GAS PO2 92.8 mmHg (80-100); ARTERIAL BLOOD GAS pH 7.391 (7.350-7.450)
[2021-07-16 07:42] LABS: CALCIUM 8.3 mg/dL (8.5-10.1)
[2021-07-16 07:43] LABS: ALBUMIN 2.5 g/dl (3.4-5.0); BLOOD UREA NITROGEN 26.6 mg/dL (7-18); MAGNESIUM 1.7 mg/dL (1.8-2.4)
[2021-07-16 07:43] LABS: ALLENS TEST POSITIVE; VENT MODE S/T; VENT RATE 20
[2021-07-16 07:46] LABS: CREATININE 0.9 mg/dL (0.55-1.3); PHOSPHOROUS 2.1 mg/dL (2.5-4.9)
[2021-07-16 07:47] LABS: BILIRUBIN,TOTAL 1.2 mg/dL (0.2-1)
[2021-07-16] MEDS: PANTOPRAZOLE 20 MG TABLET PO SCH (10:16)
[2021-07-16] MEDS: CARVEDILOL 3.125 MG TABLET (FP) PO SCH ×2 (10:16→22:19)
[2021-07-16] MEDS: ZINC SULFATE 220 MG CAPSULE (FP) PO SCH (10:16)
[2021-07-16] MEDS: ZINC OXIDE/PANTHENOL/VITAMIN E 56 GM TUBE TP SCH (10:16)
[2021-07-16] MEDS: AMIODARONE HCL 200 MG TABLET PO SCH (10:16)
[2021-07-16] MEDS: APIXABAN 5 MG TABLET PO SCH ×2 (10:16→22:19)
[2021-07-16] MEDS: MULTIVITAMINS (DAILY MVI) TABLET (FP) PO SCH (10:16)
[2021-07-16] MEDS: ASCORBIC ACID 500 MG TABLET (FP) PO SCH (10:16)
[2021-07-16] MEDS: SACUBITRIL/VALSARTAN 24 MG-26 MG TABLET PO SCH ×2 (10:17→22:19)
[2021-07-16] MEDS: RIFAXIMIN 550 MG TABLET PO SCH ×2 (10:17→22:19)
[2021-07-16] MEDS: POLYETHYLENE GLYCOL (HEALTHYLAX) 3350 17 GM PACKET PO SCH (10:18)
[2021-07-16] MEDS: BUDESONIDE/FORMETEROL FUMARATE 160/4.5 mcg INHALER IH SCH ×2 (10:19→22:19)
[2021-07-16] MEDS ORDERED: MAGNESIUM SULF 50% (8.12 MEQ/2 ML-1 GM VIAL) IVPB ONE (10:52)
[2021-07-16 12:37] LABS: ANISOCYTOSIS 1+; MACROCYTOSIS 0; TARGET CELLS 1+
[2021-07-16 12:38] LABS: PLATELET ESTIMATE NORMAL
[2021-07-16] MEDS ORDERED: POTASSIUM PHOSPHATE 30 MM in DEXTROSE 5%-WATER - 500 ML IVPB ONE (16:00)
[2021-07-16] MEDS: ATORVASTATIN CA 20 MG TABLET (FP) PO SCH (22:19)
[2021-07-17] MEDS ORDERED: SODIUM CHLORIDE 250 ML IV STA ×2 (00:57→05:31)
[2021-07-17] MEDS: FUROSEMIDE 40 MG/4 ML INJECTABLE VIAL IVPUSH SCH ×3 (05:47→22:20)
[2021-07-17 08:09] LABS: BASO % 0.2 % (0-2.0); EOS % 0.9 % (0-4.5); HEMATOCRIT 28.2 % (35.4-49); HEMOGLOBIN 8.7 GM/dL (11.7-16.9); LYMPH % 8.3 % (8-40); MCH 26.1 pg (25.7-33.7); MCHC 30.9 g/dl (32.0-35.9); MEAN CELL VOLUME 84.4 fl (80-96); MEAN PLT VOLUME 8.1 fl (7.5-11.1); MONO % 11.5 % (3.8-10.2); NEUT % 79.1 % (42.8-82.8); PLATELET COUNT 210 10^3/uL (134-434); RBC 3.34 M/mm3 (4.00-5.60); RDW 20.5 % (11.9-15.9); WHITE BLOOD COUNT 5.8 K/mm3 (4.0-10.0)
[2021-07-17 08:29] LABS: ALBUMIN 2.2 g/dl (3.4-5.0); BLOOD UREA NITROGEN 27.9 mg/dL (7-18); MAGNESIUM 1.9 mg/dL (1.8-2.4)
[2021-07-17 08:31] LABS: CREATININE 1.2 mg/dL (0.55-1.3)
[2021-07-17 08:32] LABS: BILIRUBIN,TOTAL 0.7 mg/dL (0.2-1); PHOSPHOROUS 2.2 mg/dL (2.5-4.9)
[2021-07-17 08:33] LABS: TOT PROT 6.3 g/dl (6.4-8.2)
[2021-07-17 09:25] LABS: ARTERIAL BLD GAS O2 SATURATION 93.6 % (95-98); ARTERIAL BLOOD GAS PO2 71.8 mmHg (80-100); ARTERIAL BLOOD GAS pH 7.385 (7.350-7.450)
[2021-07-17 09:30] LABS: ALLENS TEST POSITIVE
[2021-07-17] MEDS: APIXABAN 5 MG TABLET PO SCH ×2 (10:32→22:20)
[2021-07-17] MEDS: ASCORBIC ACID 500 MG TABLET (FP) PO SCH (10:32)
[2021-07-17] MEDS: AMIODARONE HCL 200 MG TABLET PO SCH (10:32)
[2021-07-17] MEDS: RIFAXIMIN 550 MG TABLET PO SCH ×2 (10:32→22:26)
[2021-07-17] MEDS: MULTIVITAMINS (DAILY MVI) TABLET (FP) PO SCH (10:32)
[2021-07-17] MEDS: PANTOPRAZOLE 20 MG TABLET PO SCH (10:32)
[2021-07-17] MEDS: BUDESONIDE/FORMETEROL FUMARATE 160/4.5 mcg INHALER IH SCH ×2 (10:33→22:22)
[2021-07-17] MEDS: POLYETHYLENE GLYCOL (HEALTHYLAX) 3350 17 GM PACKET PO SCH (10:33)
[2021-07-17] MEDS: ZINC OXIDE/PANTHENOL/VITAMIN E 56 GM TUBE TP SCH (10:34)
[2021-07-17] MEDS: ZINC SULFATE 220 MG CAPSULE (FP) PO SCH (10:35)
[2021-07-17 12:03] LABS: LACTIC ACID 2.3 mmol/L (0.4-2.0)
[2021-07-17 14:27] LABS: ANISOCYTOSIS 1+; MACROCYTOSIS 0; PLATELET ESTIMATE NORMAL; TARGET CELLS 1+
[2021-07-17] MEDS: ATORVASTATIN CA 20 MG TABLET (FP) PO SCH (22:20)
[2021-07-17] MEDS: CARVEDILOL 3.125 MG TABLET (FP) PO SCH (22:20)
[2021-07-18] MEDS: FUROSEMIDE 40 MG/4 ML INJECTABLE VIAL IVPUSH SCH ×2 (10:25→23:04)
[2021-07-18] MEDS: MULTIVITAMINS (DAILY MVI) TABLET (FP) PO SCH (10:25)
[2021-07-18] MEDS: ZINC SULFATE 220 MG CAPSULE (FP) PO SCH (10:25)
[2021-07-18] MEDS: PANTOPRAZOLE 20 MG TABLET PO SCH (10:25)
[2021-07-18] MEDS: APIXABAN 5 MG TABLET PO SCH ×2 (10:25→23:04)
[2021-07-18] MEDS: RIFAXIMIN 550 MG TABLET PO SCH ×2 (10:25→23:05)
[2021-07-18] MEDS: AMIODARONE HCL 200 MG TABLET PO SCH (10:25)
[2021-07-18] MEDS: CARVEDILOL 3.125 MG TABLET (FP) PO SCH ×2 (10:25→23:04)
[2021-07-18] MEDS: ASCORBIC ACID 500 MG TABLET (FP) PO SCH (10:25)
[2021-07-18] MEDS: POLYETHYLENE GLYCOL (HEALTHYLAX) 3350 17 GM PACKET PO SCH (10:27)
[2021-07-18] MEDS: ZINC OXIDE/PANTHENOL/VITAMIN E 56 GM TUBE TP SCH (10:29)
[2021-07-18] MEDS: BUDESONIDE/FORMETEROL FUMARATE 160/4.5 mcg INHALER IH SCH ×2 (10:29→23:05)
[2021-07-18 13:52] LABS: BASO % 0.4 % (0-2.0); EOS % 1.2 % (0-4.5); HEMATOCRIT 28.4 % (35.4-49); HEMOGLOBIN 8.5 GM/dL (11.7-16.9); LYMPH % 9.2 % (8-40); MCH 25.5 pg (25.7-33.7); MCHC 29.8 g/dl (32.0-35.9); MEAN CELL VOLUME 85.6 fl (80-96); MEAN PLT VOLUME 8.3 fl (7.5-11.1); MONO % 16.9 % (3.8-10.2); NEUT % 72.3 % (42.8-82.8); PLATELET COUNT 191 10^3/uL (134-434); RBC 3.32 M/mm3 (4.00-5.60); RDW 20.7 % (11.9-15.9); WHITE BLOOD COUNT 5.1 K/mm3 (4.0-10.0)
[2021-07-18 14:21] LABS: BLOOD UREA NITROGEN 24.3 mg/dL (7-18)
[2021-07-18 14:24] LABS: CREATININE 1.1 mg/dL (0.55-1.3); PHOSPHOROUS 1.5 mg/dL (2.5-4.9)
[2021-07-18 14:26] LABS: BILIRUBIN,TOTAL 0.7 mg/dL (0.2-1); TOT PROT 7.5 g/dl (6.4-8.2)
[2021-07-18 14:29] LABS: ALBUMIN 2.7 g/dl (3.4-5.0)
[2021-07-18] MEDS: LEVALBUTEROL HCL 0.63 MG/3 ML VIAL.NEB. IH SCH (20:26)
[2021-07-18] MEDS: ATORVASTATIN CA 20 MG TABLET (FP) PO SCH (23:04)
[2021-07-19 07:39] LABS: BASO % 0.3 % (0-2.0); EOS % 1.6 % (0-4.5); HEMATOCRIT 27.2 % (35.4-49); HEMOGLOBIN 8.4 GM/dL (11.7-16.9); LYMPH % 13.5 % (8-40); MCH 26.1 pg (25.7-33.7); MCHC 30.8 g/dl (32.0-35.9); MEAN PLT VOLUME 8.3 fl (7.5-11.1); MONO % 19.6 % (3.8-10.2); PLATELET COUNT 169 10^3/uL (134-434); RDW 20.8 % (11.9-15.9); WHITE BLOOD COUNT 3.5 K/mm3 (4.0-10.0)
[2021-07-19 07:56] LABS: CHLORIDE 94 mmol/L (98-107); SODIUM 141 mmol/L (136-145)
[2021-07-19 07:57] LABS: CALCIUM 8.1 mg/dL (8.5-10.1)
[2021-07-19 07:58] LABS: ALBUMIN 2.7 g/dl (3.4-5.0); BLOOD UREA NITROGEN 23.9 mg/dL (7-18)
[2021-07-19 08:00] LABS: GLUCOSE,RANDOM 88 mg/dL (74-106)
[2021-07-19 08:01] LABS: CREATININE 1.1 mg/dL (0.55-1.3); PHOSPHOROUS 1.6 mg/dL (2.5-4.9); SGPT/ALT 15 U/L (13-61)
[2021-07-19 08:02] LABS: SGOT/AST 20 U/L (15-37); TOT PROT 7.1 g/dl (6.4-8.2)
[2021-07-19 08:03] LABS: BILIRUBIN,TOTAL 0.8 mg/dL (0.2-1)
[2021-07-19 08:04] LABS: ALK PHOS 100 U/L (45-117)
[2021-07-19 08:16] LABS: ANION GAP 2 MMOL/L (8-16); CO2 > 45 mmol/L (21-32)
[2021-07-19] MEDS: LEVALBUTEROL HCL 0.63 MG/3 ML VIAL.NEB. IH SCH ×2 (08:36→20:26)
[2021-07-19] MEDS: ZINC SULFATE 220 MG CAPSULE (FP) PO SCH (09:31)
[2021-07-19] MEDS: MULTIVITAMINS (DAILY MVI) TABLET (FP) PO SCH (09:31)
[2021-07-19] MEDS: APIXABAN 5 MG TABLET PO SCH ×2 (09:32→21:39)
[2021-07-19] MEDS: ASCORBIC ACID 500 MG TABLET (FP) PO SCH (09:32)
[2021-07-19] MEDS: PANTOPRAZOLE 20 MG TABLET PO SCH (09:32)
[2021-07-19] MEDS: FUROSEMIDE 40 MG TABLET (FP) PO SCH ×2 (09:32→14:26)
[2021-07-19] MEDS: AMIODARONE HCL 200 MG TABLET PO SCH (09:32)
[2021-07-19] MEDS: CARVEDILOL 3.125 MG TABLET (FP) PO SCH ×2 (09:32→21:39)
[2021-07-19] MEDS: RIFAXIMIN 550 MG TABLET PO SCH ×2 (09:32→21:40)
[2021-07-19] MEDS: BUDESONIDE/FORMETEROL FUMARATE 160/4.5 mcg INHALER IH SCH ×2 (09:41→21:40)
[2021-07-19] MEDS: ZINC OXIDE/PANTHENOL/VITAMIN E 56 GM TUBE TP SCH (12:40)
[2021-07-19] MEDS: SACUBITRIL/VALSARTAN 24 MG-26 MG TABLET PO SCH ×2 (12:47→21:40)
[2021-07-19] MEDS: NAPH,MB-DB/K PH,MBDB POWDER PACKET PO SCH ×2 (14:26→21:40)
[2021-07-19 15:43] VITALS: BMI 26.6
[2021-07-19 16:11] LABS: SARS-CoV-2 NAA Not Detected (Not Detected)
[2021-07-19] MEDS: ATORVASTATIN CA 20 MG TABLET (FP) PO SCH (21:40)
[2021-07-20] MEDS: FUROSEMIDE 40 MG TABLET (FP) PO SCH ×2 (05:42→14:11)
[2021-07-20] MEDS: NAPH,MB-DB/K PH,MBDB POWDER PACKET PO SCH ×3 (05:42→21:09)
[2021-07-20 07:21] LABS: BASO % 0.9 % (0-2.0); EOS % 0.8 % (0-4.5); HEMATOCRIT 29.8 % (35.4-49); HEMOGLOBIN 9.2 GM/dL (11.7-16.9); LYMPH % 14.6 % (8-40); MCH 26.4 pg (25.7-33.7); MEAN CELL VOLUME 85.2 fl (80-96); MEAN PLT VOLUME 8.7 fl (7.5-11.1); MONO % 16.3 % (3.8-10.2); NEUT % 67.4 % (42.8-82.8); PLATELET COUNT 178 10^3/uL (134-434); RBC 3.49 M/mm3 (4.00-5.60); RDW 21.3 % (11.9-15.9); WHITE BLOOD COUNT 3.8 K/mm3 (4.0-10.0)
[2021-07-20] MEDS: LEVALBUTEROL HCL 0.63 MG/3 ML VIAL.NEB. IH SCH ×3 (07:25→20:10)
[2021-07-20 07:31] LABS: ALBUMIN 2.8 g/dl (3.4-5.0)
[2021-07-20 07:32] LABS: BLOOD UREA NITROGEN 24.1 mg/dL (7-18); CALCIUM 7.8 mg/dL (8.5-10.1); MAGNESIUM 1.8 mg/dL (1.8-2.4)
[2021-07-20 07:34] LABS: CREATININE 1.1 mg/dL (0.55-1.3); PHOSPHOROUS 1.8 mg/dL (2.5-4.9)
[2021-07-20 07:36] LABS: BILIRUBIN,TOTAL 1.2 mg/dL (0.2-1)
[2021-07-20 07:37] LABS: TOT PROT 7.5 g/dl (6.4-8.2)
[2021-07-20] MEDS: MULTIVITAMINS (DAILY MVI) TABLET (FP) PO SCH (10:02)
[2021-07-20] MEDS: SACUBITRIL/VALSARTAN 24 MG-26 MG TABLET PO SCH ×2 (10:02→21:09)
[2021-07-20] MEDS: CARVEDILOL 3.125 MG TABLET (FP) PO SCH ×2 (10:02→21:09)
[2021-07-20] MEDS: APIXABAN 5 MG TABLET PO SCH (10:02)
[2021-07-20] MEDS: PANTOPRAZOLE 20 MG TABLET PO SCH (10:02)
[2021-07-20] MEDS: AMIODARONE HCL 200 MG TABLET PO SCH (10:02)
[2021-07-20] MEDS: ASCORBIC ACID 500 MG TABLET (FP) PO SCH (10:02)
[2021-07-20] MEDS: RIFAXIMIN 550 MG TABLET PO SCH ×2 (10:02→21:55)
[2021-07-20] MEDS: ZINC OXIDE/PANTHENOL/VITAMIN E 56 GM TUBE TP SCH (10:03)
[2021-07-20] MEDS: AMINO ACIDS/PROTEIN HYDROLYS 30 ML LIQUID.PKT PO SCH (10:03)
[2021-07-20] MEDS: BUDESONIDE/FORMETEROL FUMARATE 160/4.5 mcg INHALER IH SCH ×2 (10:04→21:54)
[2021-07-20 10:22] LABS: ANISOCYTOSIS 1+; MACROCYTOSIS 1+; OVALOCYTE 2+; TARGET CELLS 1+
[2021-07-20] MEDS ORDERED: MAGNESIUM OXIDE 400 MG TABLET (FP) PO ONE (13:31)
[2021-07-20] MEDS: ATORVASTATIN CA 20 MG TABLET (FP) PO SCH (21:09)
[2021-07-21] MEDS: NAPH,MB-DB/K PH,MBDB POWDER PACKET PO SCH ×3 (05:40→21:07)
[2021-07-21] MEDS: FUROSEMIDE 40 MG TABLET (FP) PO SCH ×2 (05:40→13:51)
[2021-07-21] MEDS: LEVALBUTEROL HCL 0.63 MG/3 ML VIAL.NEB. IH SCH ×3 (07:20→20:32)
[2021-07-21 07:45] LABS: HEMOGLOBIN 9.2 GM/dL (11.7-16.9); MCH 26.9 pg (25.7-33.7); MCHC 30.8 g/dl (32.0-35.9); MEAN CELL VOLUME 87.1 fl (80-96); MEAN PLT VOLUME 8.9 fl (7.5-11.1); PLATELET COUNT 161 10^3/uL (134-434); RBC 3.44 M/mm3 (4.00-5.60); RDW 22.2 % (11.9-15.9); WHITE BLOOD COUNT 4.1 K/mm3 (4.0-10.0)
[2021-07-21 08:12] LABS: ALBUMIN 2.6 g/dl (3.4-5.0); BLOOD UREA NITROGEN 23.1 mg/dL (7-18); CALCIUM 7.7 mg/dL (8.5-10.1); PHOSPHOROUS 1.9 mg/dL (2.5-4.9)
[2021-07-21 08:13] LABS: BILIRUBIN,TOTAL 0.8 mg/dL (0.2-1); MAGNESIUM 1.7 mg/dL (1.8-2.4); TOT PROT 7.3 g/dl (6.4-8.2)
[2021-07-21 08:56] LABS: ANISOCYTOSIS 1+; MACROCYTOSIS 0
[2021-07-21] MEDS ORDERED: MAGNESIUM 1GM/D5W 100ML - 100 ML IVPB IVPB ONE (09:00)
[2021-07-21] MEDS: MULTIVITAMINS (DAILY MVI) TABLET (FP) PO SCH (09:32)
[2021-07-21] MEDS: PANTOPRAZOLE 20 MG TABLET PO SCH (09:32)
[2021-07-21] MEDS: ASCORBIC ACID 500 MG TABLET (FP) PO SCH (09:32)
[2021-07-21] MEDS: AMINO ACIDS/PROTEIN HYDROLYS 30 ML LIQUID.PKT PO SCH (09:32)
[2021-07-21] MEDS: CARVEDILOL 3.125 MG TABLET (FP) PO SCH ×2 (09:32→21:07)
[2021-07-21] MEDS: SACUBITRIL/VALSARTAN 24 MG-26 MG TABLET PO SCH ×2 (09:32→21:07)
[2021-07-21] MEDS: RIFAXIMIN 550 MG TABLET PO SCH ×2 (09:32→21:07)
[2021-07-21] MEDS: AMIODARONE HCL 200 MG TABLET PO SCH (09:32)
[2021-07-21] MEDS: BUDESONIDE/FORMETEROL FUMARATE 160/4.5 mcg INHALER IH SCH ×2 (09:38→21:07)
[2021-07-21] MEDS: ZINC OXIDE/PANTHENOL/VITAMIN E 56 GM TUBE TP SCH (09:48)
[2021-07-21] MEDS: ATORVASTATIN CA 20 MG TABLET (FP) PO SCH (21:07)
[2021-07-22] MEDS: FUROSEMIDE 40 MG TABLET (FP) PO SCH ×2 (05:50→13:47)
[2021-07-22] MEDS: NAPH,MB-DB/K PH,MBDB POWDER PACKET PO SCH ×3 (05:50→22:04)
[2021-07-22 07:33] LABS: BASO % 0.4 % (0-2.0); EOS % 0.7 % (0-4.5); HEMATOCRIT 27.6 % (35.4-49); HEMOGLOBIN 8.5 GM/dL (11.7-16.9); LYMPH % 10.7 % (8-40); MCH 26.6 pg (25.7-33.7); MCHC 30.7 g/dl (32.0-35.9); MEAN CELL VOLUME 86.6 fl (80-96); MEAN PLT VOLUME 8.9 fl (7.5-11.1); MONO % 21.3 % (3.8-10.2); NEUT % 66.9 % (42.8-82.8); PLATELET COUNT 147 10^3/uL (134-434); RBC 3.19 M/mm3 (4.00-5.60); RDW 21.2 % (11.9-15.9); WHITE BLOOD COUNT 3.7 K/mm3 (4.0-10.0)
[2021-07-22] MEDS: LEVALBUTEROL HCL 0.63 MG/3 ML VIAL.NEB. IH SCH ×3 (07:34→19:56)
[2021-07-22] MEDS: AMINO ACIDS/PROTEIN HYDROLYS 30 ML LIQUID.PKT PO SCH (07:59)
[2021-07-22 08:02] LABS: ALBUMIN 2.5 g/dl (3.4-5.0); MAGNESIUM 2.1 mg/dL (1.8-2.4)
[2021-07-22 08:05] LABS: CREATININE 1.1 mg/dL (0.55-1.3); PHOSPHOROUS 1.9 mg/dL (2.5-4.9)
[2021-07-22 08:06] LABS: BILIRUBIN,TOTAL 0.6 mg/dL (0.2-1); TOT PROT 7.1 g/dl (6.4-8.2)
[2021-07-22] MEDS ORDERED: FERRIC CARBOXYMALTOSE 750 MG in SODIUM CHLORIDE 250 ML IVPB ONE (08:30)
[2021-07-22 09:13] LABS: ANISOCYTOSIS 2+; MACROCYTOSIS 0; TARGET CELLS 2+
[2021-07-22] MEDS: MULTIVITAMINS (DAILY MVI) TABLET (FP) PO SCH (09:16)
[2021-07-22] MEDS: RIFAXIMIN 550 MG TABLET PO SCH ×2 (09:16→22:04)
[2021-07-22] MEDS: AMIODARONE HCL 200 MG TABLET PO SCH (09:16)
[2021-07-22] MEDS: CARVEDILOL 3.125 MG TABLET (FP) PO SCH ×2 (09:16→22:03)
[2021-07-22] MEDS: SACUBITRIL/VALSARTAN 24 MG-26 MG TABLET PO SCH ×2 (09:16→22:03)
[2021-07-22] MEDS: ASCORBIC ACID 500 MG TABLET (FP) PO SCH (09:16)
[2021-07-22] MEDS: PANTOPRAZOLE 20 MG TABLET PO SCH (09:16)
[2021-07-22] MEDS: BUDESONIDE/FORMETEROL FUMARATE 160/4.5 mcg INHALER IH SCH ×2 (09:18→22:04)
[2021-07-22] MEDS: ZINC OXIDE/PANTHENOL/VITAMIN E 56 GM TUBE TP SCH (09:19)
[2021-07-22] MEDS ORDERED: NAPH,MB-DB/K PH,MBDB POWDER PACKET PO SCH (11:45)
[2021-07-22 13:07] LABS: INR 1.85 (0.83-1.09); PROTHROMBIN TIME (PATIENT) 21.4 SEC (9.7-13.0)
[2021-07-22] MEDS: ATORVASTATIN CA 20 MG TABLET (FP) PO SCH (22:04)
[2021-07-23] MEDS: FUROSEMIDE 40 MG TABLET (FP) PO SCH ×2 (06:31→13:45)
[2021-07-23] MEDS: NAPH,MB-DB/K PH,MBDB POWDER PACKET PO SCH ×3 (06:31→21:53)
[2021-07-23 07:20] LABS: HEMOGLOBIN 8.8 GM/dL (11.7-16.9); MCH 25.8 pg (25.7-33.7); MCHC 29.4 g/dl (32.0-35.9); MEAN CELL VOLUME 87.7 fl (80-96); MEAN PLT VOLUME 9.1 fl (7.5-11.1); PLATELET COUNT 143 10^3/uL (134-434); RBC 3.42 M/mm3 (4.00-5.60); RDW 22.2 % (11.9-15.9); WHITE BLOOD COUNT 3.1 K/mm3 (4.0-10.0)
[2021-07-23 07:36] LABS: INR 1.62 (0.83-1.09); PROTHROMBIN TIME (PATIENT) 18.7 SEC (9.7-13.0)
[2021-07-23 07:39] LABS: ALBUMIN 2.6 g/dl (3.4-5.0); BLOOD UREA NITROGEN 23.4 mg/dL (7-18); CALCIUM 8.3 mg/dL (8.5-10.1); MAGNESIUM 1.9 mg/dL (1.8-2.4)
[2021-07-23 07:42] LABS: CREATININE 1.1 mg/dL (0.55-1.3)
[2021-07-23 07:44] LABS: BILIRUBIN,TOTAL 1.1 mg/dL (0.2-1); TOT PROT 7.4 g/dl (6.4-8.2)
[2021-07-23] MEDS: LEVALBUTEROL HCL 0.63 MG/3 ML VIAL.NEB. IH SCH ×3 (08:02→20:33)
[2021-07-23 08:10] LABS: SARS-CoV-2 NAA Not Detected (Not Detected)
[2021-07-23] MEDS: AMINO ACIDS/PROTEIN HYDROLYS 30 ML LIQUID.PKT PO SCH (08:10)
[2021-07-23 09:11] LABS: ANISOCYTOSIS 1+; MACROCYTOSIS 0; PLATELET ESTIMATE DECREASED; TARGET CELLS 1+
[2021-07-23] MEDS: PANTOPRAZOLE 20 MG TABLET PO SCH (10:00)
[2021-07-23] MEDS: ASCORBIC ACID 500 MG TABLET (FP) PO SCH (10:01)
[2021-07-23] MEDS: ZINC OXIDE/PANTHENOL/VITAMIN E 56 GM TUBE TP SCH (10:01)
[2021-07-23] MEDS: RIFAXIMIN 550 MG TABLET PO SCH ×2 (10:01→21:54)
[2021-07-23] MEDS: AMIODARONE HCL 200 MG TABLET PO SCH (10:01)
[2021-07-23] MEDS: BUDESONIDE/FORMETEROL FUMARATE 160/4.5 mcg INHALER IH SCH ×2 (10:01→21:53)
[2021-07-23] MEDS: MULTIVITAMINS (DAILY MVI) TABLET (FP) PO SCH (10:01)
[2021-07-23] MEDS: SACUBITRIL/VALSARTAN 24 MG-26 MG TABLET PO SCH ×2 (10:01→21:53)
[2021-07-23] MEDS: CARVEDILOL 3.125 MG TABLET (FP) PO SCH ×2 (10:01→21:53)
[2021-07-23] MEDS ORDERED: PHYTONADIONE 5 MG TABLET PO ONE (13:00)
[2021-07-23 14:49] LABS: INR 1.77 (0.83-1.09); PROTHROMBIN TIME (PATIENT) 20.5 SEC (9.7-13.0)
[2021-07-23 19:15] LABS: BF WBC & OTHER NUCLEATED CELLS 355 /mm3
[2021-07-23 20:28] LABS: BODY FLUID MACROPHAGES 15 %; BODY FLUID MESOTHELIAL 3 %; BODY FLUID MONOCYTE 29 %
[2021-07-23] MEDS: ATORVASTATIN CA 20 MG TABLET (FP) PO SCH (21:53)
[2021-07-24] MEDS: NAPH,MB-DB/K PH,MBDB POWDER PACKET PO SCH ×3 (07:23→22:05)
[2021-07-24] MEDS: FUROSEMIDE 40 MG TABLET (FP) PO SCH ×2 (07:23→14:00)
[2021-07-24 07:32] LABS: CHLORIDE 95 mmol/L (98-107); SODIUM 137 mmol/L (136-145)
[2021-07-24 07:37] LABS: BASO % 0.4 % (0-2.0); EOS % 0.3 % (0-4.5); HEMATOCRIT 31.8 % (35.4-49); HEMOGLOBIN 9.5 GM/dL (11.7-16.9); LYMPH % 10.4 % (8-40); MCH 25.9 pg (25.7-33.7); MCHC 29.9 g/dl (32.0-35.9); MEAN CELL VOLUME 86.6 fl (80-96); MEAN PLT VOLUME 9.8 fl (7.5-11.1); MONO % 22.3 % (3.8-10.2); NEUT % 66.6 % (42.8-82.8); PLATELET COUNT 151 10^3/uL (134-434); RBC 3.67 M/mm3 (4.00-5.60); RDW 21.9 % (11.9-15.9); WHITE BLOOD COUNT 3.4 K/mm3 (4.0-10.0)
[2021-07-24 07:38] LABS: ALBUMIN 2.7 g/dl (3.4-5.0); CALCIUM 8.1 mg/dL (8.5-10.1); CO2 39 mmol/L (21-32); GLUCOSE,RANDOM 82 mg/dL (74-106)
[2021-07-24] MEDS: LEVALBUTEROL HCL 0.63 MG/3 ML VIAL.NEB. IH SCH ×3 (07:40→20:27)
[2021-07-24 07:41] LABS: PHOSPHOROUS 2.3 mg/dL (2.5-4.9); SGOT/AST 59 U/L (15-37); SGPT/ALT 19 U/L (13-61)
[2021-07-24 07:42] LABS: BILIRUBIN,TOTAL 1.7 mg/dL (0.2-1); TOT PROT 8.2 g/dl (6.4-8.2)
[2021-07-24 07:43] LABS: ALK PHOS 115 U/L (45-117)
[2021-07-24 07:48] LABS: ANION GAP 2 MMOL/L (8-16)
[2021-07-24 08:56] LABS: INR 1.82 (0.83-1.09)
[2021-07-24] MEDS: AMINO ACIDS/PROTEIN HYDROLYS 30 ML LIQUID.PKT PO SCH ×2 (09:00→17:34)
[2021-07-24] MEDS ORDERED: INSULIN REGULAR HUMAN 100 UNITS/ML *VIAL IVPUSH ONE (09:49)
[2021-07-24] MEDS ORDERED: CALCIUM CHLORIDE 1 GM/10 ML *DISP.SYRIN IVPUSH ONE (09:51)
[2021-07-24] MEDS ORDERED: DEXTROSE 50%-WATER - 25 GM/50 ML VIAL IVPUSH ONE (09:51)
[2021-07-24] MEDS ORDERED: SODIUM CHLORIDE 500 ML IV STA (09:55)
[2021-07-24] MEDS ORDERED: FUROSEMIDE 40 MG/4 ML INJECTABLE VIAL IVPUSH ONE (09:56)
[2021-07-24] MEDS ORDERED: SODIUM ZIRCONIUM CYCLOSILICATE (LOKELMA) 5 GM PACKET PO SCH ×2 (10:00→10:05)
[2021-07-24] MEDS ORDERED: FLUDROCORTISONE ACETATE 0.1 MG TABLET (FP) PO SCH (10:06)
[2021-07-24] MEDS: MULTIVITAMINS (DAILY MVI) TABLET (FP) PO SCH (11:01)
[2021-07-24] MEDS: AMIODARONE HCL 200 MG TABLET PO SCH (11:01)
[2021-07-24] MEDS: CARVEDILOL 3.125 MG TABLET (FP) PO SCH ×2 (11:01→22:06)
[2021-07-24] MEDS: ZINC OXIDE/PANTHENOL/VITAMIN E 56 GM TUBE TP SCH (11:01)
[2021-07-24] MEDS: PANTOPRAZOLE 20 MG TABLET PO SCH (11:01)
[2021-07-24] MEDS: ASCORBIC ACID 500 MG TABLET (FP) PO SCH (11:01)
[2021-07-24] MEDS: RIFAXIMIN 550 MG TABLET PO SCH ×2 (11:02→22:06)
[2021-07-24] MEDS: BUDESONIDE/FORMETEROL FUMARATE 160/4.5 mcg INHALER IH SCH ×2 (11:02→22:07)
[2021-07-24 11:39] LABS: ANISOCYTOSIS 1+; MACROCYTOSIS 0; OVALOCYTE 1+
[2021-07-24 11:40] LABS: VENOUS O2 SATURATION 98.4 % (70-80)
[2021-07-24 11:42] LABS: VENOUS PH 7.321 (7.310-7.410)
[2021-07-24 11:57] LABS: BLOOD UREA NITROGEN 25.5 mg/dL (7-18); CALCIUM 8.6 mg/dL (8.5-10.1)
[2021-07-24] MEDS: APIXABAN 5 MG TABLET PO SCH ×2 (13:11→22:06)
[2021-07-24 15:32] LABS: CALCIUM 8.5 mg/dL (8.5-10.1)
[2021-07-24 15:33] LABS: BLOOD UREA NITROGEN 27.1 mg/dL (7-18)
[2021-07-24 17:24] LABS: ARTERIAL BLD GAS O2 SATURATION 95.5 % (95-98); ARTERIAL BLOOD GAS BASE EXCESS 13.6 mmol/L (-2-2); ARTERIAL BLOOD GAS pH 7.396 (7.350-7.450)
[2021-07-24 17:27] LABS: ALLENS TEST POSITIVE
[2021-07-24 17:28] LABS: VENT MODE S/T; VENT RATE 20
[2021-07-24] MEDS ORDERED: APIXABAN 5 MG TABLET PO SCH (22:00)
[2021-07-24] MEDS: ATORVASTATIN CA 20 MG TABLET (FP) PO SCH (22:05)
[2021-07-24] MEDS: SACUBITRIL/VALSARTAN 24 MG-26 MG TABLET PO SCH (22:06)
[2021-07-25 05:34] LABS: ARTERIAL BLD GAS O2 SATURATION 93.1 % (95-98); ARTERIAL BLOOD GAS BASE EXCESS 10.3 mmol/L (-2-2); ARTERIAL BLOOD GAS PO2 70.8 mmHg (80-100); ARTERIAL BLOOD GAS pH 7.365 (7.350-7.450)
[2021-07-25 05:40] LABS: ALLENS TEST POSITIVE
[2021-07-25] MEDS: NAPH,MB-DB/K PH,MBDB POWDER PACKET PO SCH ×3 (05:50→21:43)
[2021-07-25] MEDS: FUROSEMIDE 40 MG TABLET (FP) PO SCH ×2 (05:50→14:12)
[2021-07-25] MEDS: LEVALBUTEROL HCL 0.63 MG/3 ML VIAL.NEB. IH SCH ×3 (08:40→20:58)
[2021-07-25] MEDS: APIXABAN 5 MG TABLET PO SCH ×2 (10:10→21:43)
[2021-07-25] MEDS: AMIODARONE HCL 200 MG TABLET PO SCH (10:10)
[2021-07-25] MEDS: AMINO ACIDS/PROTEIN HYDROLYS 30 ML LIQUID.PKT PO SCH ×2 (10:10→18:05)
[2021-07-25] MEDS: ASCORBIC ACID 500 MG TABLET (FP) PO SCH (10:10)
[2021-07-25] MEDS: CARVEDILOL 3.125 MG TABLET (FP) PO SCH ×2 (10:10→21:43)
[2021-07-25] MEDS: MULTIVITAMINS (DAILY MVI) TABLET (FP) PO SCH (10:10)
[2021-07-25] MEDS: SACUBITRIL/VALSARTAN 24 MG-26 MG TABLET PO SCH ×2 (10:11→21:43)
[2021-07-25] MEDS: ZINC OXIDE/PANTHENOL/VITAMIN E 56 GM TUBE TP SCH (10:11)
[2021-07-25] MEDS: BUDESONIDE/FORMETEROL FUMARATE 160/4.5 mcg INHALER IH SCH ×2 (10:12→21:44)
[2021-07-25] MEDS: RIFAXIMIN 550 MG TABLET PO SCH ×2 (10:12→21:44)
[2021-07-25] MEDS: PANTOPRAZOLE 20 MG TABLET PO SCH (10:12)
[2021-07-25 10:24] LABS: ARTERIAL BLD GAS O2 SATURATION 48.9 % (95-98); ARTERIAL BLOOD GAS BASE EXCESS 3.7 mmol/L (-2-2); ARTERIAL BLOOD GAS pH 7.302 (7.350-7.450)
[2021-07-25 10:29] LABS: ALLENS TEST POSITIVE
[2021-07-25 10:30] LABS: ARTERIAL BLOOD GAS PO2 29.8 mmHg (80-100)
[2021-07-25 12:21] LABS: BASO % 0.1 % (0-2.0); EOS % 0.2 % (0-4.5); HEMATOCRIT 31.5 % (35.4-49); HEMOGLOBIN 9.5 GM/dL (11.7-16.9); LYMPH % 8.3 % (8-40); MCH 26.1 pg (25.7-33.7); MCHC 30.1 g/dl (32.0-35.9); MEAN CELL VOLUME 86.8 fl (80-96); MEAN PLT VOLUME 10.1 fl (7.5-11.1); MONO % 23.2 % (3.8-10.2); NEUT % 68.2 % (42.8-82.8); PLATELET COUNT 174 10^3/uL (134-434); RBC 3.63 M/mm3 (4.00-5.60); RDW 22.2 % (11.9-15.9); WHITE BLOOD COUNT 4.7 K/mm3 (4.0-10.0)
[2021-07-25 12:51] LABS: CALCIUM 8.5 mg/dL (8.5-10.1)
[2021-07-25 12:52] LABS: ALBUMIN 2.8 g/dl (3.4-5.0); BILIRUBIN,TOTAL 1.1 mg/dL (0.2-1); PHOSPHOROUS 2.3 mg/dL (2.5-4.9)
[2021-07-25 12:54] LABS: TOT PROT 7.7 g/dl (6.4-8.2)
[2021-07-25 13:56] LABS: ANISOCYTOSIS 1+; MACROCYTOSIS 0; PLATELET ESTIMATE NORMAL
[2021-07-25] MEDS: ATORVASTATIN CA 20 MG TABLET (FP) PO SCH (21:43)
[2021-07-26] MEDS: NAPH,MB-DB/K PH,MBDB POWDER PACKET PO SCH ×3 (06:22→21:42)
[2021-07-26] MEDS: FUROSEMIDE 40 MG TABLET (FP) PO SCH ×2 (06:22→13:15)
[2021-07-26 07:48] LABS: HEMATOCRIT 28.7 % (35.4-49); HEMOGLOBIN 8.7 GM/dL (11.7-16.9); MCH 26.4 pg (25.7-33.7); MCHC 30.2 g/dl (32.0-35.9); MEAN CELL VOLUME 87.5 fl (80-96); PLATELET COUNT 168 10^3/uL (134-434); RBC 3.28 M/mm3 (4.00-5.60); RDW 22.1 % (11.9-15.9); WHITE BLOOD COUNT 6.2 K/mm3 (4.0-10.0)
[2021-07-26] MEDS: LEVALBUTEROL HCL 0.63 MG/3 ML VIAL.NEB. IH SCH ×3 (07:49→20:49)
[2021-07-26 07:55] LABS: ALBUMIN 2.6 g/dl (3.4-5.0); BLOOD UREA NITROGEN 30.6 mg/dL (7-18)
[2021-07-26 07:58] LABS: PHOSPHOROUS 2.1 mg/dL (2.5-4.9)
[2021-07-26 08:00] LABS: TOT PROT 7.2 g/dl (6.4-8.2)
[2021-07-26] MEDS: AMINO ACIDS/PROTEIN HYDROLYS 30 ML LIQUID.PKT PO SCH ×2 (08:41→17:18)
[2021-07-26] MEDS: PANTOPRAZOLE 20 MG TABLET PO SCH (09:52)
[2021-07-26] MEDS: APIXABAN 5 MG TABLET PO SCH ×2 (09:52→21:42)
[2021-07-26] MEDS: RIFAXIMIN 550 MG TABLET PO SCH ×2 (09:52→21:42)
[2021-07-26] MEDS: CARVEDILOL 3.125 MG TABLET (FP) PO SCH ×2 (09:52→21:42)
[2021-07-26] MEDS: MULTIVITAMINS (DAILY MVI) TABLET (FP) PO SCH (09:53)
[2021-07-26] MEDS: BUDESONIDE/FORMETEROL FUMARATE 160/4.5 mcg INHALER IH SCH ×2 (09:53→21:44)
[2021-07-26] MEDS: ZINC OXIDE/PANTHENOL/VITAMIN E 56 GM TUBE TP SCH (09:53)
[2021-07-26] MEDS: AMIODARONE HCL 200 MG TABLET PO SCH (09:53)
[2021-07-26] MEDS: ASCORBIC ACID 500 MG TABLET (FP) PO SCH (09:53)
[2021-07-26] MEDS: SACUBITRIL/VALSARTAN 24 MG-26 MG TABLET PO SCH ×2 (09:54→21:43)
[2021-07-26 10:13] LABS: ANISOCYTOSIS 2+; MACROCYTOSIS 2+; OVALOCYTE 1+; TARGET CELLS 1+; TEAR DROP CELLS 1+; TOXIC GRANULATION 2+
[2021-07-26] MEDS ORDERED: ALBUTEROL SO4 2.5/IPRATROPIUM 0.5 INH SOL 3 ML VIAL.NEB. NEB SCH (12:00)
[2021-07-26] MEDS: ATORVASTATIN CA 20 MG TABLET (FP) PO SCH (21:43)
[2021-07-26 23:09] VITALS: BP 126/76; PULSE 84; TEMP 98
== END 2021-07-27 01:00 | disposition expired | DRG 291 ==
LOC: JER 15:38 → JERBED 18:44 → J4W 07-12 01:46
PROVIDERS: ADMIT Internal Medicine
PROC: BB4BZZZ Ultrasonography of Pleura (ICD-10-PCS; principal; 2021-07-23)
PROC: 0W993ZZ Drainage of Right Pleural Cavity, Percutaneous Approach (ICD-10-PCS; 2021-07-23)
PROC: 0BH17EZ Insertion of Endotracheal Airway into Trachea, Via Natural or Artificial Opening (ICD-10-PCS; 2021-07-26)
PROC: 5A1935Z Respiratory Ventilation, Less than 24 Consecutive Hours (ICD-10-PCS; 2021-07-26)
DX: I13.0 Hypertensive heart and chronic kidney disease with heart failure and stage 1 through stage 4 chronic kidney disease, or unspecified chronic kidney disease (principal); L89.153 Pressure ulcer of sacral region, stage 3; I50.23 Acute on chronic systolic (congestive) heart failure; J96.21 Acute and chronic respiratory failure with hypoxia; J96.22 Acute and chronic respiratory failure with hypercapnia; E87.2 Acidosis; I47.1 Supraventricular tachycardia; J90 Pleural effusion, not elsewhere classified; N17.9 Acute kidney failure, unspecified; E87.3 Alkalosis; D64.9 Anemia, unspecified; N18.9 Chronic kidney disease, unspecified; I48.91 Unspecified atrial fibrillation; I49.9 Cardiac arrhythmia, unspecified; E87.5 Hyperkalemia; E78.5 Hyperlipidemia, unspecified
CPT/HCPCS: 36415; 36600; 71045-TC-FY; 71250-TC; 76942; 80048; 80053; 81003; 82042; 82150; 82465; 82550; 82607; 82728; 82746; 82784; 82803; 82945; 82962; 82977; 83516; 83540; 83550; 83605; 83615; 83735; 83880; 83986; 84100; 84155; 84157; 84165; 84439; 84443; 84478; 84484; 85025; 85045; 85379; 85610; 85730; 86140; 86334; 86769; 86850; 86900; 86901; 87070; 87075; 87102; 87116; 87205; 87206; 87210; 87804; 88108; 88305-TC; 93005; 93010; 94660; 97116-GP; 97161-GP; 99285-25; C9399; C9803; J1439; U0003; U0005